=== PATIENT | female | born 1955 | race Caucasian/White ===

== ENCOUNTER 2021-02-24 10:47 | Inpatient (IN) | payer MEDICARE, SELFPAY ==
[2021-02-24] VITALS (27 sets, daily range): BP systolic 109–173; BP diastolic 53–76; PULSE 64–85; RESP 13–43; TEMP 36.3–36.4; O2SAT 94–100; BMI 19.2
[2021-02-24 12:09] LABS: COVID19 -Nasal RAPID Negative (Negative)
[2021-02-24 12:14] LABS: Add Manual Diff / Slide Review NO; Basophils Absolute Auto 0 /uL (0-100); Basophils Percent Auto 0.5 % (0-2); Eosinophils Absolute Auto 0 /uL (0-450); Eosinophils Percent Auto 0.1 % (2-4); Hematocrit 32.4 % (36-46); Hemoglobin 11.4 g/dL (12.0-16.0); Lymphocytes Absolute Auto 800 /uL (1100-4500); Lymphocytes Percent Auto 11.4 % (25-40); Mean Corpuscular HGB Conc 35.1 % (30-36); Mean Corpuscular Hemoglobin 30.7 PG (26-34); Mean Corpuscular Volume 87.5 fL (80-100); Monocytes Absolute Auto 500 /uL (0-900); Monocytes Percent Auto 7.3 % (3-14); Neutrophils Absolute Auto 5900 /uL (1500-7000); Neutrophils Percent Auto 80.7 % (50-75); Platelet Count 352 X10^3/uL (150-400); Red Blood Cell Count 3.71 X10^6/uL (4.0-5.2); Red Cell Distribution Width 12.4 % (11.6-14.8); White Blood Cell Count 7.3 X10^3/uL (4.5-11.0)
[2021-02-24 12:23] LABS: Alanine Aminotransferase 32 IU/L (<35); Albumin 4.5 g/dL (3.5-5.0); Albumin Globulin Ratio 1.1 (1.0-2.8); Alkaline Phosphatase 46 U/L (38-126); Aspartate Aminotransferase 49 IU/L (14-36); BUN Creatinine Ratio 10.4 (6-22); Bilirubin Total 0.6 mg/dL (0.2-1.3); Blood Urea Nitrogen 88 mg/dL (7-17); Estimated Glomerular Filt Rate 4.7 mL/min (>60); Glucose 121 mg/dL (80-110); HEMOLYSIS < 15 (0-50); Lipase 221 U/L (23-300); Potassium 2.8 mmol/L (3.4-5.1); Sodium 129 mmol/L (137-145); Total Protein 8.5 g/dL (6.3-8.2)
[2021-02-24 12:41] LABS: Carbon Dioxide 45 mmol/L (22-32); Chloride 68 mmol/L (98-107)
[2021-02-24 12:42] LABS: Calcium 15.3 mg/dL (8.4-10.2)
[2021-02-24 12:56] LABS: Creatine Kinase 91 U/L (30-135)
[2021-02-24] MEDS: SODIUM CHLORIDE 0.9% 1,000 ML 1000 ML IV ×2 (12:58→14:59)
--- NOTE | 2021-02-24 13:06 | ED_ITS ---
HPI - Nausea/Vomiting/Diarrhea General Chief complaint: Nausea/Vomiting/Diarrhea Stated complaint: dehydrated, cant keep anything down Time Seen by Provider: 02/24/21 12:42 Source: patient Mode of arrival: Ambulatory Limitations: no limitations History of Present Illness HPI Narrative: This is a 65-year-old female who comes to the emergency department with complaint of feeling generally unwell. Patient states that she she has felt generally unwell. Patient states she started feeling unwell around the 17 of February which was 8 days ago. Patient states she thinks she got dehydrated during the heat wave over the 20 of February week. Patient states she noticed on the she was not balancing well when she tried to walk to the local parade. She states she did have 2 syncopal episodes where she fainted. She had sensation that she was going to pass out. She has been moving slower. She has had a mild headache but nothing like severe headache she has had in the past. She has had decreased appetite, she has had a mild cough which has been nonproductive. She has had nausea and vomiting for the past 2 days although she was able to keep in insure down yesterday. She denies any chest pain or shortness of breath. She denies any abdominal pain, no back or flank pain. Patient denies any changes in her urine output and states it has not been dark, she has not had frequency, dysuria sense of urgency or even a decrease in output according her. She has not appreciate any swelling her lower extremities. She states she does not have any known past medical history. She has not seen primary care physician in the last couple years, no prior surgeries, no allergies to medications. Patient does ride horses recreationally. No tobacco, alcohol or illicit. Related Data Home Medications Medication Instructions Recorded Confirmed ibuprofen 200 mg capsule (Advil 200 mg PO TID #0 01/04/17 Liqui-Gel) Allergies Allergy/AdvReac Type Severity Reaction Status Date / Time No Known Drug Allergies Allergy Verified 02/24/21 12:46 Review of Systems Review of Systems ROS Unobtainable: All systems reviewed & are unremarkable except as noted in HPI and below Patient History Social History Smoking Status: Never smoker Smoking Status: Never smoker Substance Use Type: does not use Exam Narrative Exam Narrative: GEN: Thin female, alert and oriented x 3, patient appears to be in mild distress. HEENT: Atraumatic, pupils are equal round reactive to light, extraocular movements are intact, nares are clear. Throat is clear without any exudates, erythema, tonsillar enlargement or uvular deviation, dry mucous membranes, no facial droop. HEART: Regular rate and rhythm without murmur, clicks, rubs. Pulses are equal in upper and lower extremities LUNGS:Lungs clear to auscultation, no wheezes, rales, crackles, chest moves symmetrically ABD:bowel sounds normal, soft, non-tender, no guarding, rebound, rigidity, no masses noted, no hepatosplenomegaly :No CVA tenderness MSCL: Non-tender, no muscle atrophy, muscles strength 5/5 upper and lower extremities, full range of motion NEURO:CN 2-12 intact, sensation normal SKIN: No rash or other changes appreciated Initial Vital Signs Initial Vital Signs: Vital Signs Temperature 97.4 F L 02/24/21 11:35 Pulse Rate 76 02/24/21 11:35 Respiratory Rate 18 02/24/21 11:35 Blood Pressure 140/65 02/24/21 11:35 Pulse Oximetry 98 02/24/21 11:35 Course Orders Ordered: ED Orders 02/24/21 11:46 COVID19 -Nasal swab/Pre-Proc Stat EKG-12 Lead Stat 02/24/21 12:00 Complete Blood Count AUTO DIFF Stat Comprehensive Metabolic Panel Stat Lipase Stat Magnesium Stat NT-proBNP (BNP-Adult 18+) Stat Phosphorous Stat Thyroid Stimulating Hormone Stat Troponin & CK Cardiac Panel Stat Vitamin D 25 Hydroxy (D3) Stat 02/24/21 13:19 CT chest abd pel wo con Stat CT head/brain wo con Stat 02/24/21 14:27 COVID19 - ADMIT ([employer] swab/PCR) Stat 02/24/21 14:34 Creatinine Urine Random Stat Sodium Urine Random Stat Urinalysis and Microscopic Stat Urine Culture Stat 02/24/21 14:53 Lactate (Lactic Acid) Stat Osmolality, Serum Stat 02/24/21 15:00 Blood Culture Stat Sodium Chloride (Normal Saline 0.9%) 1,000 mls @ 175 mls/hr IV CONT LETICIA Last Admin: 02/24/21 18:24 Dose: 175 mls/hr Documented by: LITA Discontinued Medications Sodium Chloride (Normal Saline 0.9%) 1,000 mls @ 1,000 mls/hr IV BOLUS ONE Stop: 02/24/21 13:42 Last Infusion: 02/24/21 14:58 Dose: 0 mls/hr Documented by: Admin: 02/24/21 12:58 Dose: 1,000 mls/hr Documented by: RODRIGO POTASSIUM CHLORIDE IN WATER (Potassium Cl 10 Meq/100 Ml Renetta) 10 meq in 100 mls @ 100 mls/hr IV Q1H LETICIA Stop: 02/24/21 17:29 Last Infusion: 02/24/21 19:05 Dose: 0 mls/hr Documented by: Admin: 02/24/21 17:56 Dose: 100 mls/hr Documented by: Infusion: 02/24/21 17:54 Dose: 0 mls/hr Documented by: Admin: 02/24/21 16:13 Dose: 100 mls/hr Documented by: Infusion: 02/24/21 16:11 Dose: 0 mls/hr Documented by: Admin: 02/24/21 14:57 Dose: 100 mls/hr Documented by: Infusion: 02/24/21 14:56 Dose: 0 mls/hr Documented by: Admin: 02/24/21 13:51 Dose: 100 mls/hr Documented by: RODRIGO Sodium Chloride (Normal Saline 0.9%) 1,000 mls @ 1,000 mls/hr IV BOLUS ONE Stop: 02/24/21 15:57 Last Infusion: 02/24/21 18:14 Dose: 0 mls/hr Documented by: Admin: 02/24/21 14:59 Dose: 1,000 mls/hr Documented by: LITA POTASSIUM CHLORIDE IN WATER (Potassium Cl 10 Meq/100 Ml Renetta) 10 meq in 100 mls @ 100 mls/hr IV Q1H LETICIA Stop: 02/24/21 19:14 Last Admin: 02/24/21 19:08 Dose: 100 mls/hr Documented by: LITA Consultations Consultation #1: Dr. Damon-with Nephrology at [facility]. Is happy to consult with patient, her cell phone is [phone]. She recommends a 2nd L of fluid and after that fluids at 175 mL/hour. Potassium replacement at 80-120 meq of fluids, continue with fluids for calcium. At this time she would not transfer but if patient is not putting out 0.5 mL/kilos per hour which would be 30 cc/hours for the patient they asked for recontact for transfer. Vital Signs Vital signs: Vital Signs - 8 hr 02/24/21 11:35 02/24/21 13:04 02/24/21 13:30 Temperature 97.4 F L Pulse Rate 76 75 80 Respiratory Rate 18 20 Blood Pressure 140/65 153/69 H Pulse Oximetry 98 96 98 02/24/21 13:47 02/24/21 14:00 02/24/21 14:30 Temperature Pulse Rate 85 77 82 Respiratory Rate 22 Blood Pressure 173/73 H 151/72 H 160/73 H Pulse Oximetry 94 100 97 02/24/21 15:00 02/24/21 15:09 02/24/21 15:30 Temperature Pulse Rate 78 73 80 Respiratory Rate Blood Pressure 133/76 144/68 H Pulse Oximetry 100 96 02/24/21 16:00 02/24/21 16:01 02/24/21 16:30 Temperature Pulse Rate 70 73 68 Respiratory Rate 24 21 Blood Pressure 137/59 L 130/66 Pulse Oximetry 97 97 96 02/24/21 17:00 02/24/21 17:30 Temperature Pulse Rate 66 67 Respiratory Rate 22 24 Blood Pressure 139/67 124/67 Pulse Oximetry MDM - Nausea/Vomiting/Diarrhea Lab Data Result diagrams: 02/24/21 12:00 02/24/21 12:00 Labs: Lab Results 02/24/21 02/24/21 02/24/21 Range/Units 11:46 12:00 12:00 WBC 7.3 (4.5-11.0) X10^3/uL RBC 3.71 L (4.0-5.2) X10^6/uL Hgb 11.4 L (12.0-16.0) g/dL Hct 32.4 L (36-46) % MCV 87.5 (80-100) fL MCH 30.7 (26-34) PG MCHC 35.1 (30-36) % RDW 12.4 (11.6-14.8) % Plt Count 352 (150-400) X10^3/uL Neut % (Auto) 80.7 H (50-75) % Lymph % (Auto) 11.4 L (25-40) % [place] % (Auto) 7.3 (3-14) % Eos % (Auto) 0.1 L (2-4) % Baso % (Auto) 0.5 (0-2) % Neut # (Auto) 5900 (9157-5710) /uL Lymph # (Auto) 800 L (4027-2491) /uL [place] # (Auto) 500 (0-900) /uL Eos # (Auto) 0 (0-450) /uL Baso # (Auto) 0 (0-100) /uL Sodium 129 L (137-145) mmol/L Potassium 2.8 L (3.4-5.1) mmol/L Chloride 68 L* (98-107) mmol/L Carbon Dioxide 45 H* (22-32) mmol/L BUN 88 H (7-17) mg/dL Creatinine 8.48 H* (0.52-1.04) mg/dL Estimated GFR 4.7 L (>60) mL/min BUN/Creatinine Ratio 10.4 (6-22) Glucose 121 H (80-110) mg/dL Lactate (0.7-2.1) mmol/L Calcium 15.3 H* (8.4-10.2) mg/dL Phosphorus (2.8-4.1) mg/dL Magnesium (1.6-2.3) mg/dL Total Bilirubin 0.6 (0.2-1.3) mg/dL AST 49 H (14-36) IU/L ALT 32 (<35) IU/L Alkaline Phosphatase 46 (38-126) U/L Total Creatine Kinase (30-135) U/L CK-MB (CK-2) CK-MB (CK-2) Rel Index Troponin I (0.01-0.034) ng/mL NT-Pro-B Natriuret Pep (<125) pg/mL Total Protein 8.5 H (6.3-8.2) g/dL Albumin 4.5 (3.5-5.0) g/dL Globulin 4.0 (1.7-4.1) g/dL Albumin/Globulin Ratio 1.1 (1.0-2.8) Lipase 221 (23-300) U/L 25-OH Vitamin D Total (30.0-100.0) ng/mL TSH (0.47-4.68) uIU/mL Urine Color Urine Appearance Urine pH (4.5-8.0) Ur Specific [place] (1.000-1.035) Urine Protein (Negative) Urine Glucose (UA) (Negative) g/dL Urine Ketones (NEGATIVE) Urine Occult Blood (Negative) Urine Nitrate (Negative) Urine Bilirubin (NEGATIVE) Urine Urobilinogen (0.2) E.U./dL Ur Leukocyte Esterase (NEGATIVE) Urine RBC (0-5/HPF) Urine WBC (0-5/HPF) Urine Bacteria (None) Ur Culture Indicated? Ur Random Sodium (30-90) mmol/L Urine Creatinine mg/dL SARS-CoV-2 (PCR) Negative (Negative) 02/24/21 02/24/21 02/24/21 Range/Units 12:00 12:00 12:00 WBC (4.5-11.0) X10^3/uL RBC (4.0-5.2) X10^6/uL Hgb (12.0-16.0) g/dL Hct (36-46) % MCV (80-100) fL MCH (26-34) PG MCHC (30-36) % RDW (11.6-14.8) % Plt Count (150-400) X10^3/uL Neut % (Auto) (50-75) % Lymph % (Auto) (25-40) % [place] % (Auto) (3-14) % Eos % (Auto) (2-4) % Baso % (Auto) (0-2) % Neut # (Auto) (9120-2568) /uL Lymph # (Auto) (9342-3940) /uL [place] # (Auto) (0-900) /uL Eos # (Auto) (0-450) /uL Baso # (Auto) (0-100) /uL Sodium (137-145) mmol/L Potassium (3.4-5.1) mmol/L Chloride (98-107) mmol/L Carbon Dioxide (22-32) mmol/L BUN (7-17) mg/dL Creatinine (0.52-1.04) mg/dL Estimated GFR (>60) mL/min BUN/Creatinine Ratio (6-22) Glucose (80-110) mg/dL Lactate (0.7-2.1) mmol/L Calcium (8.4-10.2) mg/dL Phosphorus 6.0 H (2.8-4.1) mg/dL Magnesium 2.4 H (1.6-2.3) mg/dL Total Bilirubin (0.2-1.3) mg/dL AST (14-36) IU/L ALT (<35) IU/L Alkaline Phosphatase (38-126) U/L Total Creatine Kinase 91 (30-135) U/L CK-MB (CK-2) TNP CK-MB (CK-2) Rel Index TNP Troponin I < 0.012 (0.01-0.034) ng/mL NT-Pro-B Natriuret Pep 816 H (<125) pg/mL Total Protein (6.3-8.2) g/dL Albumin (3.5-5.0) g/dL Globulin (1.7-4.1) g/dL Albumin/Globulin Ratio (1.0-2.8) Lipase (23-300) U/L 25-OH Vitamin D Total (30.0-100.0) ng/mL TSH 1.25 (0.47-4.68) uIU/mL Urine Color Urine Appearance Urine pH (4.5-8.0) Ur Specific [place] (1.000-1.035) Urine Protein (Negative) Urine Glucose (UA) (Negative) g/dL Urine Ketones (NEGATIVE) Urine Occult Blood (Negative) Urine Nitrate (Negative) Urine Bilirubin (NEGATIVE) Urine Urobilinogen (0.2) E.U./dL Ur Leukocyte Esterase (NEGATIVE) Urine RBC (0-5/HPF) Urine WBC (0-5/HPF) Urine Bacteria (None) Ur Culture Indicated? Ur Random Sodium (30-90) mmol/L Urine Creatinine mg/dL SARS-CoV-2 (PCR) (Negative) 02/24/21 02/24/21 02/24/21 Range/Units 12:00 14:27 14:34 WBC (4.5-11.0) X10^3/uL RBC (4.0-5.2) X10^6/uL Hgb (12.0-16.0) g/dL Hct (36-46) % MCV (80-100) fL MCH (26-34) PG MCHC (30-36) % RDW (11.6-14.8) % Plt Count (150-400) X10^3/uL Neut % (Auto) (50-75) % Lymph % (Auto) (25-40) % [place] % (Auto) (3-14) % Eos % (Auto) (2-4) % Baso % (Auto) (0-2) % Neut # (Auto) (7170-9193) /uL Lymph # (Auto) (4296-6780) /uL [place] # (Auto) (0-900) /uL Eos # (Auto) (0-450) /uL Baso # (Auto) (0-100) /uL Sodium (137-145) mmol/L Potassium (3.4-5.1) mmol/L Chloride (98-107) mmol/L Carbon Dioxide (22-32) mmol/L BUN (7-17) mg/dL Creatinine (0.52-1.04) mg/dL Estimated GFR (>60) mL/min BUN/Creatinine Ratio (6-22) Glucose (80-110) mg/dL Lactate (0.7-2.1) mmol/L Calcium (8.4-10.2) mg/dL Phosphorus (2.8-4.1) mg/dL Magnesium (1.6-2.3) mg/dL Total Bilirubin (0.2-1.3) mg/dL AST (14-36) IU/L ALT (<35) IU/L Alkaline Phosphatase (38-126) U/L Total Creatine Kinase (30-135) U/L CK-MB (CK-2) CK-MB (CK-2) Rel Index Troponin I (0.01-0.034) ng/mL NT-Pro-B Natriuret Pep (<125) pg/mL Total Protein (6.3-8.2) g/dL Albumin (3.5-5.0) g/dL Globulin (1.7-4.1) g/dL Albumin/Globulin Ratio (1.0-2.8) Lipase (23-300) U/L 25-OH Vitamin D Total 28.2 L (30.0-100.0) ng/mL TSH (0.47-4.68) uIU/mL Urine Color Urine Appearance Urine pH (4.5-8.0) Ur Specific [place] (1.000-1.035) Urine Protein (Negative) Urine Glucose (UA) (Negative) g/dL Urine Ketones (NEGATIVE) Urine Occult Blood (Negative) Urine Nitrate (Negative) Urine Bilirubin (NEGATIVE) Urine Urobilinogen (0.2) E.U./dL Ur Leukocyte Esterase (NEGATIVE) Urine RBC (0-5/HPF) Urine WBC (0-5/HPF) Urine Bacteria (None) Ur Culture Indicated? Ur Random Sodium 54 (30-90) mmol/L Urine Creatinine 47.9 mg/dL SARS-CoV-2 (PCR) Negative (Negative) 02/24/21 02/24/21 Range/Units 14:34 14:53 WBC (4.5-11.0) X10^3/uL RBC (4.0-5.2) X10^6/uL Hgb (12.0-16.0) g/dL Hct (36-46) % MCV (80-100) fL MCH (26-34) PG MCHC (30-36) % RDW (11.6-14.8) % Plt Count (150-400) X10^3/uL Neut % (Auto) (50-75) % Lymph % (Auto) (25-40) % [place] % (Auto) (3-14) % Eos % (Auto) (2-4) % Baso % (Auto) (0-2) % Neut # (Auto) (5709-9174) /uL Lymph # (Auto) (1554-3285) /uL [place] # (Auto) (0-900) /uL Eos # (Auto) (0-450) /uL Baso # (Auto) (0-100) /uL Sodium (137-145) mmol/L Potassium (3.4-5.1) mmol/L Chloride (98-107) mmol/L Carbon Dioxide (22-32) mmol/L BUN (7-17) mg/dL Creatinine (0.52-1.04) mg/dL Estimated GFR (>60) mL/min BUN/Creatinine Ratio (6-22) Glucose (80-110) mg/dL Lactate 1.0 (0.7-2.1) mmol/L Calcium (8.4-10.2) mg/dL Phosphorus (2.8-4.1) mg/dL Magnesium (1.6-2.3) mg/dL Total Bilirubin (0.2-1.3) mg/dL AST (14-36) IU/L ALT (<35) IU/L Alkaline Phosphatase (38-126) U/L Total Creatine Kinase (30-135) U/L CK-MB (CK-2) CK-MB (CK-2) Rel Index Troponin I (0.01-0.034) ng/mL NT-Pro-B Natriuret Pep (<125) pg/mL Total Protein (6.3-8.2) g/dL Albumin (3.5-5.0) g/dL Globulin (1.7-4.1) g/dL Albumin/Globulin Ratio (1.0-2.8) Lipase (23-300) U/L 25-OH Vitamin D Total (30.0-100.0) ng/mL TSH (0.47-4.68) uIU/mL Urine Color Yellow Urine Appearance Clear Urine pH 8.0 (4.5-8.0) Ur Specific [place] 1.010 (1.000-1.035) Urine Protein 1+ H (Negative) Urine Glucose (UA) Negative (Negative) g/dL Urine Ketones Negative (NEGATIVE) Urine Occult Blood 1+ H (Negative) Urine Nitrate Negative (Negative) Urine Bilirubin Negative (NEGATIVE) Urine Urobilinogen 0.2 (0.2) E.U./dL Ur Leukocyte Esterase Trace H (NEGATIVE) Urine RBC 5-10/hpf H (0-5/HPF) Urine WBC 5-10/hpf H (0-5/HPF) Urine Bacteria None seen (None) Ur Culture Indicated? Specimen cultured Ur Random Sodium (30-90) mmol/L Urine Creatinine mg/dL SARS-CoV-2 (PCR) (Negative) Imaging Data CT scan - head: Radiologist's Impression: [address] [id number] Scan ReportSigned Patient: Belle Rubio VMR#: [id number]: 4Acct:[id number]/Sex: 65 / FDate of Service: 02/24/21Loc: EDAccession Number: [id number] Procedure: CT head/brain wo con Ordering Provider: Randa Carrasco D.O. PROCEDURE: CT HEAD/BRAIN WO CON INDICATIONS: headaches, renal failure, hypercalcemia TECHNIQUE: Noncontrast 4.5 mm thick angled axial sections acquired from the foramen magnum to the vertex, with coronal and sagittal reformats. For radiation dose reduction, the following was used: automated exposure control, adjustment of mA and/or kV according to patient size. COMPARISON: None. FINDINGS: Image quality: Excellent. CSF spaces: Basal cisterns are patent. No extra-axial fluid collections. Ventricles are normal in size and shape. Brain: No midline shift. No intracranial masses or hemorrhage. Paulino-white matter interface is normal. Skull and face: Calvarium and visualized facial bones are intact, without suspicious lesions. Sinuses: Visualized sinuses and mastoids are clear. IMPRESSION: No acute intracranial abnormality demonstrated. Dictated by: Arya Bentley M.D. on 02/24/2021 at 13:57 Approved by: Arya Bentley M.D. on 02/24/2021 at 13:58 CT chest/abd/pelvis: Radiologist's Impression: [address] [id number] Scan ReportSigned Patient: Belle Rubio R#: [id number]: [id number]:[id number]/Sex: 65 / FDate of Service: 02/24/21Loc: EDAccession Number: [id number] Procedure: CT chest abd pel wo con Ordering Provider: Randa Carrasco D.O. PROCEDURE: CT CHEST ABD PEL WO CON INDICATIONS: renal failure, hypercalcemia, hypokalemia, cancer? TECHNIQUE: After the administration of oral contrast, 5 mm thick sections acquired from the lung apices to the symphysis pubis. 5 mm thick coronal and sagittal reformats acquired, with additional 7 mm coronal MIP reformats through the lungs. For radiation dose reduction, the following was used: automated exposure control, adjustment of mA and/or kV according to patient size. COMPARISON: None. FINDINGS: Image quality: Excellent. CHEST: Lungs and pleura: No acute pulmonary opacities. No pleural effusions or pneumothorax. Central and peripheral airways are patent are normal in caliber. Mediastinum: Heart size is normal. No pericardial effusion. No mediastinal adenopathy by CT size criteria. Thoracic aorta and central pulmonary arteries are normal in size. Esophagus is normal in caliber. No hiatal hernia. Chest wall: No axillary or supraclavicular adenopathy by size criteria. Thyroid gland is normal. ABDOMEN: Solid organs: There is a 0.4 x 0.8 cm subcapsular hypodense nodule in the posterior segment of the right hepatic lobe, most likely a cyst. Liver is normal in size. Gallbladder is normal. Pancreas is normal in contours. Spleen is normal in size. No adrenal nodules. Both kidneys are normal in size, without hydronephrosis. There are tiny 1-2 mm punctate calculi in kidneys bilaterally. Peritoneum and bowel: Small and large bowel loops are normal in caliber and wall thickness. A few colonic diverticula. No CT findings to suggest acute diverticulitis. There is a moderate amount of stool in colon. No free fluid or air. Nodes and vessels: No retroperitoneal or mesenteric adenopathy by size criteria. Aorta and inferior vena cava are normal in size. Miscellaneous: No ventral hernias. PELVIS: Genitourinary: Bladder wall thickness is normal. Uterus is absent. No adnexal mass. Miscellaneous: No inguinal hernias or adenopathy. Bones: No suspicious bony lesions. No vertebral body compression fractures. IMPRESSION: 1. No neoplastic process is identified on this noncontrast enhanced CT. [id number] CT is suboptimal for cancer workup. 2. Mild diverticulosis without diverticulitis. 3. Tiny nonobstructive renal calculi. Dictated by: Tomy Woods M.D. on 02/24/2021 at 14:15 Approved by: Tomy Woods M.D. on 02/24/2021 at 14:25 ECG Data Attestation: I personally reviewed and interpreted this ECG as follows: Prior ECG tracings: not available for review Interpretation: Sinus rhythm with premature atrial complexes. Rate of 68 P are 164 QRS of 90 and QTC of 421, no priors for comparison. Maybe be secondary to hypercalcemia. Jordan waves present. MDM Narrative Medical decision making narrative: This is a 65-year-old female comes in with renal failure likely secondary to dehydration hyponatremia, hypokalemia likely related to patient's vomiting. Contraction alkalosis with hypercalcemia. Patient has protein, occult blood, and trace LE and rbc's. Patient had head CT, chest/abd/pelvis show no acute intracranial abnormality or neoplastic process. There was concern about keeping patient here locally, patient had 400 cc of urine out initially and has continued to have 100 cc/hour of urine output after receiving 2 L of fluid and is at 175 cc/hour at this time. Case was discussed with Dr. Damon Neurology at [facility]. At this time she does not recommend transfer, recommendations are above in the chart and patient was discussed with Dr. De Leon who accepts for admission. Critical Care Time Critical Care Time Critical Care Time: Yes Total Critical Care Time: 45 Attestation: The high probability of a clinically significant, sudden or life threatening deterioration of the [cardiac] system(s) required my full and direct attention, intervention and personal management. The aggregate critical care time was [] minutes. This time is in addition to time spent performing reported procedures but includes the following: [x] Data Review and interpretation [x] Patient assessment and monitoring of vital signs [x] Documentation [x] Medication orders and management Discharge Plan Departure Patient Disposition: Admitted As Inpatient Clinical Impression: Renal failure, Hyponatremia, Hypokalemia, Hypercalcemia Admit Date/Time: 02/24/21 19:02 Admit Provider: Perfecto De Leon
[2021-02-24 13:09] LABS: NT-proBNP (BNP-Adult 18+) 816 pg/mL (<125); Troponin I < 0.012 ng/mL (0.01-0.034)
--- NOTE | 2021-02-24 13:19 | DI.CT.S_ITS ---
PROCEDURE: CT HEAD/BRAIN WO CON INDICATIONS: headaches, renal failure, hypercalcemia TECHNIQUE: Noncontrast 4.5 mm thick angled axial sections acquired from the foramen magnum to the vertex, with coronal and sagittal reformats. For radiation dose reduction, the following was used: automated exposure control, adjustment of mA and/or kV according to patient size. COMPARISON: None. FINDINGS: Image quality: Excellent. CSF spaces: Basal cisterns are patent. No extra-axial fluid collections. Ventricles are normal in size and shape. Brain: No midline shift. No intracranial masses or hemorrhage. Paulino-white matter interface is normal. Skull and face: Calvarium and visualized facial bones are intact, without suspicious lesions. Sinuses: Visualized sinuses and mastoids are clear. IMPRESSION: No acute intracranial abnormality demonstrated. Dictated by: Arya Bentley M.D. on 02/24/2021 at 13:57 Approved by: Arya Bentley M.D. on 02/24/2021 at 13:58
--- NOTE | 2021-02-24 13:19 | DI.CT.S_ITS ---
PROCEDURE: CT CHEST ABD PEL WO CON INDICATIONS: renal failure, hypercalcemia, hypokalemia, cancer? TECHNIQUE: After the administration of oral contrast, 5 mm thick sections acquired from the lung apices to the symphysis pubis. 5 mm thick coronal and sagittal reformats acquired, with additional 7 mm coronal MIP reformats through the lungs. For radiation dose reduction, the following was used: automated exposure control, adjustment of mA and/or kV according to patient size. COMPARISON: None. FINDINGS: Image quality: Excellent. CHEST: Lungs and pleura: No acute pulmonary opacities. No pleural effusions or pneumothorax. Central and peripheral airways are patent are normal in caliber. Mediastinum: Heart size is normal. No pericardial effusion. No mediastinal adenopathy by CT size criteria. Thoracic aorta and central pulmonary arteries are normal in size. Esophagus is normal in caliber. No hiatal hernia. Chest wall: No axillary or supraclavicular adenopathy by size criteria. Thyroid gland is normal. ABDOMEN: Solid organs: There is a 0.4 x 0.8 cm subcapsular hypodense nodule in the posterior segment of the right hepatic lobe, most likely a cyst. Liver is normal in size. Gallbladder is normal. Pancreas is normal in contours. Spleen is normal in size. No adrenal nodules. Both kidneys are normal in size, without hydronephrosis. There are tiny 1-2 mm punctate calculi in kidneys bilaterally. Peritoneum and bowel: Small and large bowel loops are normal in caliber and wall thickness. A few colonic diverticula. No CT findings to suggest acute diverticulitis. There is a moderate amount of stool in colon. No free fluid or air. Nodes and vessels: No retroperitoneal or mesenteric adenopathy by size criteria. Aorta and inferior vena cava are normal in size. Miscellaneous: No ventral hernias. PELVIS: Genitourinary: Bladder wall thickness is normal. Uterus is absent. No adnexal mass. Miscellaneous: No inguinal hernias or adenopathy. Bones: No suspicious bony lesions. No vertebral body compression fractures. IMPRESSION: 1. No neoplastic process is identified on this noncontrast enhanced CT. [id number] CT is suboptimal for cancer workup. 2. Mild diverticulosis without diverticulitis. 3. Tiny nonobstructive renal calculi. Dictated by: Tomy Woods M.D. on 02/24/2021 at 14:15 Approved by: Tomy Woods M.D. on 02/24/2021 at 14:25
[2021-02-24] MEDS: POTASSIUM CHLORIDE IN WATER 10 MEQ/100 ML PIGGYBACK 100 MEQ IV ×8 (13:51→23:39)
[2021-02-24 14:13] LABS: Magnesium 2.4 mg/dL (1.6-2.3)
[2021-02-24 14:43] LABS: Thyroid Stimulating Hormone 1.25 uIU/mL (0.47-4.68)
[2021-02-24 14:46] LABS: Bacteria Urine None Seen
[2021-02-24 15:33] LABS: Appearance Urine UA CLEAR; Bilirubin Urine UA NEGATIVE (NEGATIVE); Color Urine UA YELLOW; Culture Indicated Urine Specimen Cultured; Glucose Urine UA NEGATIVE (Negative); Ketones Urine UA NEGATIVE (NEGATIVE); Leukocyte Esterase Urine UA TRACE (NEGATIVE); Nitrite Urine UA NEGATIVE (Negative); Occult Blood Urine UA 1+ (Negative); Protein Urine UA 1+ (Negative); RBC Urine 5-10/HPF (0-5/HPF); Urobilinogen Urine UA 0.2 E.U./dL (0.2); WBC Urine 5-10/HPF (0-5/HPF)
[2021-02-24 15:42] LABS: COVID19 - ADMIT (NP swab/PCR) Negative (Negative)
[2021-02-24 15:56] LABS: Creatinine Urine Random 47.9 mg/dL; Sodium Urine Random 54 mmol/L (30-90)
[2021-02-24 16:11] LABS: Vitamin D 25 Hydroxy (D3) 28.2 ng/mL (30.0-100.0)
[2021-02-24] MEDS: SODIUM CHLORIDE 0.9% 1,000 ML 175 ML IV (18:24)
--- NOTE | 2021-02-24 22:16 | P.HP_ITS ---
History of Present Illness History of Present Illness Date Patient Seen: 02/24/21 Time Patient Seen: 20:45 Chief complaint: dehydrated, cant keep anything down Narrative: Belle Rubio is a 65-year-old female who presented the emergency department with 3-day history feeling generally unwell. Patient states she attributes her symptoms were a result of February heat wave. Patient states she thinks she got dehydrated after the heat wave over the 20 of February weekend. Patient states she noticed on the she was dizzy when she tried to walk to the local parade. She states she did have 2 syncopal episodes where she fainted. She had sensation that she was going to pass out. She has been moving slower. She has had a mild headache but nothing like severe headache she has had in the past. She has had decreased appetite, she has had a mild cough which has been nonproductive. She does ensorse having the shakes, new onset blurred vision, being unable to chew a dried food, and constipation which is new for her. She has had nausea and vomiting for the past 2 days although she started to drink Ensure and was able to keep it down yesterday. She denies any chest pain or shortness of breath. She denies any abdominal pain, no back or flank pain. Patient denies any changes in her urine output and states it has not been dark, she has not had frequency, dysuria, urgency or even a decrease in output. She has not appreciate any swelling her lower extremities. She states she does not have any known past medical history. She has not seen primary care physician in the last couple years, no prior surgeries, no allergies to medications. Patient does ride horses recreationally. Denies tobacco, alcohol or illicit drug use. Patient's chest x-ray and noncontrast CT of the chest abdomen and pelvis were negative for any acute process. Patient's temp was 97.6?, blood pressure 134/67, heart rate 83, respiratory rate 13, oxygen saturation 97% on room air, she weighs 53.9 kg with a BMI of 19.2. WBC is 7.3, RBC 3.71, hemoglobin 11.4, hematocrit 32.4, platelet count 352, sodium 1 29, potassium 2.8, chloride 68, bicarb 45, BUN 88, creatinine 8.5, with a EGFR 4.7, calcium was 15.3, phosphorus 6.0, magnesium 2.4, AST 49, TSH is normal at 1.25, brain 8 retic peptide is elevated at 816, PTH intact, calcium PTH intact, PTH intact interoperative, S PEP, UPEP, and free serum light chains are pending. COVID-19 PCR was negative. Patient History Medical History Acute renal failure (ARF) No active medical problems Surgical History No history of previous surgery Comment: Family Hx (AllClear ID function not available) Mother age 83 of dementia Father age 80 had [place] Agent exposure Maternal grandmother: hx of nephrectomy Family & Social History Family history unavailable: No (See above.) Safety & Behavioral: Feels Safe in Current Yes Environment Been Physically Hurt or No Threatened By a Person Tobacco & Substance use: Smoking Status Never smoker Substance Use Type does not use Meds Home Medications and Allergies Home Medications Medication Instructions Recorded Confirmed Type ibuprofen 200 mg capsule (Advil 200 mg PO TID #0 01/04/17 History Liqui-Gel) Allergies Allergy/AdvReac Type Severity Reaction Status Date / Time No Known Drug Allergies Allergy Verified 02/24/21 12:46 Review of Systems Review of Systems ROS: Yes All systems reviewed with the patient and are negative except as otherwise documented Exam Vital Signs (past 8 hours): - 02/24/21 14:30 02/24/21 15:00 02/24/21 15:09 Pulse Rate 82 78 73 Respiratory Rate Blood Pressure 160/73 H 133/76 Pulse Oximetry 97 100 96 02/24/21 15:30 02/24/21 16:00 02/24/21 16:01 Pulse Rate 80 70 73 Respiratory Rate 24 21 Blood Pressure 144/68 H 137/59 L Pulse Oximetry 97 97 02/24/21 16:30 02/24/21 17:00 02/24/21 17:30 Pulse Rate 68 66 67 Respiratory Rate 22 24 Blood Pressure 130/66 139/67 124/67 Pulse Oximetry 96 02/24/21 18:00 02/24/21 18:30 02/24/21 19:00 Pulse Rate 65 71 78 Respiratory Rate 40 H 37 H 27 H Blood Pressure 139/68 137/65 115/58 L Pulse Oximetry 98 95 97 02/24/21 19:30 02/24/21 20:00 02/24/21 20:30 Pulse Rate 69 64 65 Respiratory Rate 16 15 14 Blood Pressure 127/60 109/55 L 109/53 L Pulse Oximetry 98 94 02/24/21 21:00 02/24/21 21:30 Pulse Rate 83 76 Respiratory Rate 43 H 23 Blood Pressure 124/65 119/56 L Pulse Oximetry 94 Oxygen Delivery Method Room Air Narrative Exam Narrative: Gen: Alert, oriented, thin 65 y.o. female, NAD HEENT: normocephalic, atraumatic, conjunctiva clear, sclera non-icteric, oral mucosa dry Neck: supple, full ROM, no JVD, trachea is midline Resp: Lungs CTA, non-labored breathing CV: RRR, no murmur or rubs Abd: soft, non-tender, normoactive BTs Skin: dry, poor turgor, no lesions or rashes, dry and intact Neuro: Alert and oriented X 4 w/no focal deficits. Speech clear and coherent. Extremities: moves all 4 extremities, is ambulatory, negative Bina?s sign Psyche: normal mood and affect. Objective Labs Result Diagrams: 02/24/21 12:00 02/24/21 12:00 Labs: Laboratory Results - last 24 hr 02/24/21 02/24/21 02/24/21 11:46 12:00 12:00 WBC 7.3 RBC 3.71 L Hgb 11.4 L Hct 32.4 L MCV 87.5 MCH 30.7 MCHC 35.1 RDW 12.4 Plt Count 352 Neut % (Auto) 80.7 H Lymph % (Auto) 11.4 L [place] % (Auto) 7.3 Eos % (Auto) 0.1 L Baso % (Auto) 0.5 Neut # (Auto) 5900 Lymph # (Auto) 800 L [place] # (Auto) 500 Eos # (Auto) 0 Baso # (Auto) 0 Sodium 129 L Potassium 2.8 L Chloride 68 L* Carbon Dioxide 45 H* BUN 88 H Creatinine 8.48 H* Estimated GFR 4.7 L BUN/Creatinine Ratio 10.4 Glucose 121 H Lactate Calcium 15.3 H* Phosphorus Magnesium Total Bilirubin 0.6 AST 49 H ALT 32 Alkaline Phosphatase 46 Total Creatine Kinase CK-MB (CK-2) CK-MB (CK-2) Rel Index Troponin I NT-Pro-B Natriuret Pep Total Protein 8.5 H Albumin 4.5 Globulin 4.0 Albumin/Globulin Ratio 1.1 Lipase 221 25-OH Vitamin D Total TSH Urine Color Urine Appearance Urine pH Ur Specific [place] Urine Protein Urine Glucose (UA) Urine Ketones Urine Occult Blood Urine Nitrate Urine Bilirubin Urine Urobilinogen Ur Leukocyte Esterase Urine RBC Urine WBC Urine Bacteria Ur Culture Indicated? Ur Random Sodium Urine Creatinine SARS-CoV-2 (PCR) Negative 02/24/21 02/24/21 02/24/21 12:00 12:00 12:00 WBC RBC Hgb Hct MCV MCH MCHC RDW Plt Count Neut % (Auto) Lymph % (Auto) [place] % (Auto) Eos % (Auto) Baso % (Auto) Neut # (Auto) Lymph # (Auto) [place] # (Auto) Eos # (Auto) Baso # (Auto) Sodium Potassium Chloride Carbon Dioxide BUN Creatinine Estimated GFR BUN/Creatinine Ratio Glucose Lactate Calcium Phosphorus 6.0 H Magnesium 2.4 H Total Bilirubin AST ALT Alkaline Phosphatase Total Creatine Kinase 91 CK-MB (CK-2) TNP CK-MB (CK-2) Rel Index TNP Troponin I < 0.012 NT-Pro-B Natriuret Pep 816 H Total Protein Albumin Globulin Albumin/Globulin Ratio Lipase 25-OH Vitamin D Total TSH 1.25 Urine Color Urine Appearance Urine pH Ur Specific [place] Urine Protein Urine Glucose (UA) Urine Ketones Urine Occult Blood Urine Nitrate Urine Bilirubin Urine Urobilinogen Ur Leukocyte Esterase Urine RBC Urine WBC Urine Bacteria Ur Culture Indicated? Ur Random Sodium Urine Creatinine SARS-CoV-2 (PCR) 02/24/21 02/24/21 02/24/21 12:00 14:27 14:34 WBC RBC Hgb Hct MCV MCH MCHC RDW Plt Count Neut % (Auto) Lymph % (Auto) [place] % (Auto) Eos % (Auto) Baso % (Auto) Neut # (Auto) Lymph # (Auto) [place] # (Auto) Eos # (Auto) Baso # (Auto) Sodium Potassium Chloride Carbon Dioxide BUN Creatinine Estimated GFR BUN/Creatinine Ratio Glucose Lactate Calcium Phosphorus Magnesium Total Bilirubin AST ALT Alkaline Phosphatase Total Creatine Kinase CK-MB (CK-2) CK-MB (CK-2) Rel Index Troponin I NT-Pro-B Natriuret Pep Total Protein Albumin Globulin Albumin/Globulin Ratio Lipase 25-OH Vitamin D Total 28.2 L TSH Urine Color Urine Appearance Urine pH Ur Specific [place] Urine Protein Urine Glucose (UA) Urine Ketones Urine Occult Blood Urine Nitrate Urine Bilirubin Urine Urobilinogen Ur Leukocyte Esterase Urine RBC Urine WBC Urine Bacteria Ur Culture Indicated? Ur Random Sodium 54 Urine Creatinine 47.9 SARS-CoV-2 (PCR) Negative 02/24/21 02/24/21 14:34 14:53 WBC RBC Hgb Hct MCV MCH MCHC RDW Plt Count Neut % (Auto) Lymph % (Auto) [place] % (Auto) Eos % (Auto) Baso % (Auto) Neut # (Auto) Lymph # (Auto) [place] # (Auto) Eos # (Auto) Baso # (Auto) Sodium Potassium Chloride Carbon Dioxide BUN Creatinine Estimated GFR BUN/Creatinine Ratio Glucose Lactate 1.0 Calcium Phosphorus Magnesium Total Bilirubin AST ALT Alkaline Phosphatase Total Creatine Kinase CK-MB (CK-2) CK-MB (CK-2) Rel Index Troponin I NT-Pro-B Natriuret Pep Total Protein Albumin Globulin Albumin/Globulin Ratio Lipase 25-OH Vitamin D Total TSH Urine Color Yellow Urine Appearance Clear Urine pH 8.0 Ur Specific [place] 1.010 Urine Protein 1+ H Urine Glucose (UA) Negative Urine Ketones Negative Urine Occult Blood 1+ H Urine Nitrate Negative Urine Bilirubin Negative Urine Urobilinogen 0.2 Ur Leukocyte Esterase Trace H Urine RBC 5-10/hpf H Urine WBC 5-10/hpf H Urine Bacteria None seen Ur Culture Indicated? Specimen cultured Ur Random Sodium Urine Creatinine SARS-CoV-2 (PCR) Assessment & Plan Assessment & Plan narrative: Belle Rubio will be admitted for treatment of an acute kidney failure and undergo further workup of such. 1. Acute renal failure with a creatinine of 8.48 and an eGFR of 4.7, present on admission * Improved creatinine of 7.22 and 5.6 respectively * Strict Is and Os to monitor strict UOP * PTH intact, calcium PH intact and parathyroid intact are pending 2. Hyperphosphetemia, acute and present on admission * Phosphorus was 6.0 will check level q 4 hours. 2. Hypercalcemia, acute and present on admission * Serum calcium on admission was 15.3 now improved to 12.3 * Check level q 4 hours * Nephrology advised to hold treatment until the am * Have ordered serum immunoassays and serum free light chains to rule out multiple myeloma now pending 3. Metabolic derangement, acute and present on admission * Potassium 2.8, sodium was 129, now improved to 3.0 and 130 respectively * She received 2 Kcl riders in the ED and another 40 Kcl IV riders ordered along with 40 mEq po X 1 * Check level q 2 hours VTE prophylaxis: Wells risk score: 0 Heparin 5000 units subQ bid Consults: none Patient is admitted to the ICU under inpatient status with expected length of stay greater than 2 midnights due to severity of presenting symptoms, risk of adverse event, and complexity of treatment plan. FEN: IV ns at 175 ml/hour, general diet, BMP q 2 hours and magnesium q 4 hours. Dispo: unknown at this time Code Status: Full code as discussed with patient [place] Jasmin is her and surrogate/POA. COVID-19 COVID-19 status: Negative Result date/Date tested (Pos, Neg/Pending): 02/24/21 Scores Wells' Criteria for PE Clinical signs and symptoms of DVT: No PE is #1 Dx or equally likely: No Heart rate > 100: No Immobilization at least 3 days or surg in previous 4 weeks: No History of PE or DVT: No Hemoptysis: No Malignancy w/Treatment within 6 months or palliative: No Wells' PE Score total: 0 Quality VTE Deep Vein Thrombosis/Pulmonary Embolism Present on Admission: No
[2021-02-24] MEDS: HEPARIN 5,000 UNIT/ML VIAL 5000 UNIT SUBCUT (22:19)
[2021-02-24 22:40] LABS: Magnesium 2.1 mg/dL (1.6-2.3)
[2021-02-24 22:42] LABS: BUN Creatinine Ratio 10.8 (6-22); Blood Urea Nitrogen 78 mg/dL (7-17); Calcium 12.3 mg/dL (8.4-10.2); Chloride 86 mmol/L (98-107); Estimated Glomerular Filt Rate 5.6 mL/min (>60); Glucose 88 mg/dL (80-110); HEMOLYSIS < 15 (0-50); Sodium 130 mmol/L (137-145)
[2021-02-24 22:52] LABS: Carbon Dioxide 39 mmol/L (22-32)
[2021-02-24 22:54] LABS: Troponin I 0.014 ng/mL (0.01-0.034)
[2021-02-24] MEDS: POTASSIUM CHLORIDE 20 MEQ TAB 40 MEQ PO (23:38)
[2021-02-24 23:54] LABS: Phosphorous 3.6 mg/dL (2.8-4.1)
[2021-02-25] VITALS (27 sets, daily range): BP systolic 99–147; BP diastolic 54–85; PULSE 63–85; RESP 14–57; TEMP 36.8–37; O2SAT 92–99
[2021-02-25] MEDS: POTASSIUM CHLORIDE IN WATER 10 MEQ/100 ML PIGGYBACK 100 MEQ IV ×4 (00:53→04:57)
[2021-02-25 00:54] LABS: BUN Creatinine Ratio 11.6 (6-22); Blood Urea Nitrogen 79 mg/dL (7-17); Calcium 11.9 mg/dL (8.4-10.2); Carbon Dioxide 39 mmol/L (22-32); Chloride 87 mmol/L (98-107); Estimated Glomerular Filt Rate 6.1 mL/min (>60); Glucose 111 mg/dL (80-110); HEMOLYSIS 16 (0-50); Magnesium 2.1 mg/dL (1.6-2.3); Potassium 3.2 mmol/L (3.4-5.1); Sodium 130 mmol/L (137-145)
[2021-02-25 01:03] LABS: Troponin I 0.014 ng/mL (0.01-0.034)
[2021-02-25 02:47] LABS: Phosphorous 3.1 mg/dL (2.8-4.1)
[2021-02-25 02:49] LABS: BUN Creatinine Ratio 10.7 (6-22); Blood Urea Nitrogen 75 mg/dL (7-17); Calcium 12.2 mg/dL (8.4-10.2); Carbon Dioxide 38 mmol/L (22-32); Chloride 91 mmol/L (98-107); Estimated Glomerular Filt Rate 5.8 mL/min (>60); Glucose 111 mg/dL (80-110); HEMOLYSIS < 15 (0-50); Potassium 3.9 mmol/L (3.4-5.1); Sodium 132 mmol/L (137-145)
[2021-02-25 04:38] LABS: Add Manual Diff / Slide Review NO; Basophils Absolute Auto 0 /uL (0-100); Basophils Percent Auto 0.5 % (0-2); Eosinophils Absolute Auto 0 /uL (0-450); Eosinophils Percent Auto 0.8 % (2-4); Hematocrit 27.1 % (36-46); Hemoglobin 9.4 g/dL (12.0-16.0); Lymphocytes Absolute Auto 1400 /uL (1100-4500); Lymphocytes Percent Auto 24.9 % (25-40); Mean Corpuscular HGB Conc 34.7 % (30-36); Mean Corpuscular Hemoglobin 30.6 PG (26-34); Mean Corpuscular Volume 88.3 fL (80-100); Monocytes Absolute Auto 500 /uL (0-900); Monocytes Percent Auto 9.4 % (3-14); Neutrophils Absolute Auto 3600 /uL (1500-7000); Neutrophils Percent Auto 64.4 % (50-75); Platelet Count 271 X10^3/uL (150-400); Red Blood Cell Count 3.07 X10^6/uL (4.0-5.2); Red Cell Distribution Width 12.4 % (11.6-14.8); White Blood Cell Count 5.6 X10^3/uL (4.5-11.0)
[2021-02-25 04:46] LABS: BUN Creatinine Ratio 11.3 (6-22); Blood Urea Nitrogen 74 mg/dL (7-17); Calcium 11.9 mg/dL (8.4-10.2); Carbon Dioxide 35 mmol/L (22-32); Chloride 95 mmol/L (98-107); Estimated Glomerular Filt Rate 6.3 mL/min (>60); Glucose 91 mg/dL (80-110); HEMOLYSIS < 15 (0-50); Potassium 4.3 mmol/L (3.4-5.1); Sodium 133 mmol/L (137-145)
[2021-02-25 04:58] LABS: Troponin I < 0.012 ng/mL (0.01-0.034)
[2021-02-25] MEDS: SODIUM CHLORIDE 0.9% 1,000 ML 150 ML IV ×3 (06:01→20:20)
--- NOTE | 2021-02-25 06:39 | PC.NURSE ---
Shift Note-Patient admitted to ICU room 228 at 2150, oriented x4, drowsy. Able to transfer to bed with SBA. NS @ 175ml/hr and K+ rider infusing, received total of 120meq K+ riders plus 40meq PO potassium x1. Q2h BMP, other labs Q4h, values slowly improving. UOP has been 125ml-225ml/hr on average, see I/Os. SR, VSS, RA >95%, denies pain. Was able to sleep and says I'm thinking more clear this morning
[2021-02-25 08:41] LABS: BUN Creatinine Ratio 10.5 (6-22); Blood Urea Nitrogen 70 mg/dL (7-17); Carbon Dioxide 32 mmol/L (22-32); Chloride 98 mmol/L (98-107); Estimated Glomerular Filt Rate 6.2 mL/min (>60); Glucose 88 mg/dL (80-110); HEMOLYSIS < 15 (0-50); Potassium 4.2 mmol/L (3.4-5.1); Sodium 134 mmol/L (137-145)
--- NOTE | 2021-02-25 11:43 | CM.DANOTE ---
Addendum entered by Barbi Urbina LPN 02/25/21 12:16: Met with pt and introduced self and role. Pt [address] on [facility] with her Alejandro. Is functionally independent at baseline, has a barn with animals and says that during the extended heat wave she was up every 2 hours at night misting the animals to cool them. Pt is still having some difficulty thinking quickly but does feel she is improving. PCP: was Dr. Gonzales/Ramila who retired. Her goes to same clinic and she has been planning to establish with MICHAEL Geronimo at same clinic. Her will be in to visit soon and she will ask him to call the clinic to try to get a new pt appointment set up. P: anticipate home with spouse when stable for [facility]. will follow prn. Addendum entered by Barbi Urbina LPN 02/25/21 12:06: PT is a 65 year old female who admitted to care of hospitalist team yesterday evening. PCP: ? at this time Payer: [facility] Admission status: in review Will check in with pt now and follow as full dx and treatment plan unfold. Original Note: Discharge Planning/Care Management DCP: assessment: case received, EMR reviewed. Discussed in Team Rounds. [employer] consult was ordered. CM Discharge Assessment Start: 02/25/21 11:41 Freq: Status: Active Protocol: Document 02/25/21 11:42 ITV (Rec: 02/25/21 11:43 ITV [id number]) Discharge Planning Assessment Advance Directives? No Advance Directives on File No History Provided By Medical Record Has Patient been admitted in last 30 No days? Prior Living Arrangements House Household Members spouse Independent with ADL's Yes Is patient alert and oriented? Yes
[2021-02-25 13:20] LABS: BUN Creatinine Ratio 10.9 (6-22); Blood Urea Nitrogen 71 mg/dL (7-17); Carbon Dioxide 31 mmol/L (22-32); Chloride 99 mmol/L (98-107); Estimated Glomerular Filt Rate 6.3 mL/min (>60); Glucose 104 mg/dL (80-110); HEMOLYSIS < 15 (0-50); Magnesium 1.9 mg/dL (1.6-2.3); Potassium 3.8 mmol/L (3.4-5.1); Sodium 135 mmol/L (137-145)
[2021-02-25 13:32] LABS: Troponin I < 0.012 ng/mL (0.01-0.034)
[2021-02-25 13:37] LABS: Parathyroid Hormone, Intact 20
[2021-02-25 13:38] LABS: Calcium 13.9
[2021-02-25] MEDS: HEPARIN 5,000 UNIT/ML VIAL 5000 UNIT SUBCUT ×2 (14:22→21:07)
[2021-02-25 15:16] LABS: Osmolality, Serum 301 mOsmol/kg (280-301)
--- NOTE | 2021-02-25 15:27 | DI.RAD.S_ITS ---
PROCEDURE: XR BONE SURVEY INDICATIONS: lytic lesion for cancer? TECHNIQUE: Multiple views obtained of various bony structures as described below. COMPARISON: None. FINDINGS: Skull (lateral): No suspicious bony lesions. No fractures. Thoracic spine (AP, lateral): No suspicious bony lesions. No acute vertebral body compression fractures. Lumbar spine (AP, lateral): No suspicious bony lesions. No acute vertebral body compression fractures. Pelvis (AP): No suspicious bony lesions. No fractures. Overlying soft tissues appear unremarkable. Right and left humeri (AP): No suspicious bony lesions. No fractures. Overlying soft tissues appear unremarkable except for what appears to be a gown buttons overlying the distal humeral diaphysis at the right arm.. Right and left femurs (AP): No suspicious bony lesions. No fractures. Overlying soft tissues appear unremarkable. IMPRESSION: No osteolytic or blastic bone lesion found. A gown buttons superimposes on the junction of the middle and lower thirds of the right humerus laterally. Dictated by: Eitan Lala M.D. on 02/25/2021 at 17:00 Approved by: Eitan Lala M.D. on 02/25/2021 at 17:02
--- NOTE | 2021-02-25 15:53 | DIET.PN ---
Dietary Progress Note RD Note: Pt admitted for dehydration c eGFR 6.3 and Cr 6.53 reassigned to renal diet by RD. Checked in on pt regarding what to expect with renal diet during hospitalization and provided handout on good food choices and those to avoid for now in case she wants to call down her preferred menu. Pt was being taken to xray during our conversation so was cut short and pt has no [facility] hospital record, per nursing no active Rx.
[2021-02-25 17:38] LABS: BUN Creatinine Ratio 11.2 (6-22); Blood Urea Nitrogen 71 mg/dL (7-17); Calcium 11.6 mg/dL (8.4-10.2); Carbon Dioxide 34 mmol/L (22-32); Chloride 99 mmol/L (98-107); Estimated Glomerular Filt Rate 6.6 mL/min (>60); Glucose 128 mg/dL (80-110); HEMOLYSIS < 15 (0-50); Potassium 3.7 mmol/L (3.4-5.1); Sodium 136 mmol/L (137-145)
[2021-02-25] MEDS: CALCITONIN,SALMON 400 UNITS/2 ML MDV 200 UNITS IM (18:06)
--- NOTE | 2021-02-25 18:44 | PM.PN.1 ---
Subjective Subjective Date Patient Seen: 02/25/21 Time Patient Seen: 08:00 Interval history: Today she feels much better. She does not feel as confused. Her appetite is better. Her imbalance feels better. Her vision is improved. She has no nausea or vomiting. She has no bone pain. Exam Vital Signs (past 8 hours): - 02/25/21 13:01 02/25/21 16:16 Temperature 98.6 F Pulse Rate 80 75 Respiratory Rate 32 H 16 Blood Pressure 126/61 137/85 Pulse Oximetry 94 96 Oxygen Delivery Method Room Air Oxygen Flow Rate 0 Narrative Exam Narrative: Gen: no acute distress Resp: lungs clear bilaterally CV: regular rate and rhythm, no murmurs Abd: soft, non-tender, normal bowel sounds Neuro: Alert and oriented with no focal deficits. Speech clear and coherent. Objective Labs Result Diagrams: 02/25/21 04:25 02/25/21 17:18 Labs: Laboratory Results - last 24 hr 02/24/21 02/24/21 02/24/21 14:53 14:53 22:20 WBC RBC Hgb Hct MCV MCH MCHC RDW Plt Count Neut % (Auto) Lymph % (Auto) [place] % (Auto) Eos % (Auto) Baso % (Auto) Neut # (Auto) Lymph # (Auto) [place] # (Auto) Eos # (Auto) Baso # (Auto) Sodium 130 L Potassium 3.0 L Chloride 86 L Carbon Dioxide 39 H BUN 78 H Creatinine 7.22 H Estimated GFR 5.6 L BUN/Creatinine Ratio 10.8 Glucose 88 Serum Osmolality 301 Calcium 12.3 H Phosphorus Magnesium Troponin I 0.014 PTH Intact 20 Calcium (PTH Intact) 13.9 PTH Intact Intraop Comment Nasal Screen MRSA (PCR) 02/24/21 02/24/21 02/24/21 22:20 22:22 23:00 WBC RBC Hgb Hct MCV MCH MCHC RDW Plt Count Neut % (Auto) Lymph % (Auto) [place] % (Auto) Eos % (Auto) Baso % (Auto) Neut # (Auto) Lymph # (Auto) [place] # (Auto) Eos # (Auto) Baso # (Auto) Sodium Potassium Chloride Carbon Dioxide BUN Creatinine Estimated GFR BUN/Creatinine Ratio Glucose Serum Osmolality Calcium Phosphorus 3.6 D Magnesium 2.1 Troponin I PTH Intact Calcium (PTH Intact) PTH Intact Intraop Nasal Screen MRSA (PCR) Negative for mrsa 02/25/21 02/25/21 02/25/21 00:30 00:30 02:25 WBC RBC Hgb Hct MCV MCH MCHC RDW Plt Count Neut % (Auto) Lymph % (Auto) [place] % (Auto) Eos % (Auto) Baso % (Auto) Neut # (Auto) Lymph # (Auto) [place] # (Auto) Eos # (Auto) Baso # (Auto) Sodium 130 L 132 L Potassium 3.2 L 3.9 Chloride 87 L 91 L Carbon Dioxide 39 H 38 H BUN 79 H 75 H Creatinine 6.79 H 7.03 H Estimated GFR 6.1 L 5.8 L BUN/Creatinine Ratio 11.6 10.7 Glucose 111 H 111 H Serum Osmolality Calcium 11.9 H 12.2 H Phosphorus Magnesium 2.1 Troponin I 0.014 PTH Intact Calcium (PTH Intact) PTH Intact Intraop Nasal Screen MRSA (PCR) 02/25/21 02/25/21 02/25/21 02:25 04:25 04:25 WBC RBC Hgb Hct MCV MCH MCHC RDW Plt Count Neut % (Auto) Lymph % (Auto) [place] % (Auto) Eos % (Auto) Baso % (Auto) Neut # (Auto) Lymph # (Auto) [place] # (Auto) Eos # (Auto) Baso # (Auto) Sodium 133 L Potassium 4.3 Chloride 95 L Carbon Dioxide 35 H BUN 74 H Creatinine 6.57 H Estimated GFR 6.3 L BUN/Creatinine Ratio 11.3 Glucose 91 Serum Osmolality Calcium 11.9 H Phosphorus 3.1 Magnesium 2.0 Troponin I < 0.012 PTH Intact Calcium (PTH Intact) PTH Intact Intraop Nasal Screen MRSA (PCR) 02/25/21 02/25/21 02/25/21 04:25 07:46 07:46 WBC 5.6 RBC 3.07 L Hgb 9.4 L Hct 27.1 L MCV 88.3 MCH 30.6 MCHC 34.7 RDW 12.4 Plt Count 271 Neut % (Auto) 64.4 Lymph % (Auto) 24.9 L [place] % (Auto) 9.4 Eos % (Auto) 0.8 L Baso % (Auto) 0.5 Neut # (Auto) 3600 Lymph # (Auto) 1400 [place] # (Auto) 500 Eos # (Auto) 0 Baso # (Auto) 0 Sodium 134 L Potassium 4.2 Chloride 98 Carbon Dioxide 32 BUN 70 H Creatinine 6.68 H Estimated GFR 6.2 L BUN/Creatinine Ratio 10.5 Glucose 88 Serum Osmolality Calcium 12.0 H Phosphorus Cancelled Magnesium Troponin I PTH Intact Calcium (PTH Intact) PTH Intact Intraop Nasal Screen MRSA (PCR) 02/25/21 02/25/21 02/25/21 12:51 12:51 12:51 WBC RBC Hgb Hct MCV MCH MCHC RDW Plt Count Neut % (Auto) Lymph % (Auto) [place] % (Auto) Eos % (Auto) Baso % (Auto) Neut # (Auto) Lymph # (Auto) [place] # (Auto) Eos # (Auto) Baso # (Auto) Sodium 135 L Potassium 3.8 Chloride 99 Carbon Dioxide 31 BUN 71 H Creatinine 6.53 H Estimated GFR 6.3 L BUN/Creatinine Ratio 10.9 Glucose 104 Serum Osmolality Calcium 12.0 H Phosphorus Magnesium 1.9 Troponin I < 0.012 PTH Intact Calcium (PTH Intact) PTH Intact Intraop Nasal Screen MRSA (PCR) 02/25/21 17:18 WBC RBC Hgb Hct MCV MCH MCHC RDW Plt Count Neut % (Auto) Lymph % (Auto) [place] % (Auto) Eos % (Auto) Baso % (Auto) Neut # (Auto) Lymph # (Auto) [place] # (Auto) Eos # (Auto) Baso # (Auto) Sodium 136 L Potassium 3.7 Chloride 99 Carbon Dioxide 34 H BUN 71 H Creatinine 6.35 H Estimated GFR 6.6 L BUN/Creatinine Ratio 11.2 Glucose 128 H Serum Osmolality Calcium 11.6 H Phosphorus Magnesium Troponin I PTH Intact Calcium (PTH Intact) PTH Intact Intraop Nasal Screen MRSA (PCR) [facility] Medical History Acute renal failure (ARF) No active medical problems Surgical History No history of previous surgery Social History household members: spouse Smoking Status: Never smoker Assessment & Plan Assessment & Plan narrative: Ms. Castellanos is a 65W with no previous PMH who presents with weakness, confusion found to have new severe FRAN. 1. Acute renal failure -initial creatinine 8.48, improved after IV fluids to 6.35 -etiology has been presumed initially to be due to severe volume depletion -urine sodium elevated, but appears to be after received IV fluid, lowering yield -has been presumed based on story to have severe prerenal FRAN -UOP has been excellent, and IV fluids have improved kidney function but only slowly -UA shows slight protein and blood, nonspecific in this setting -CT shows no evidence of obstruction 2. Hypercalcemia, severe, acute -etiology initially thought secondary to renal failure and dehydration -hydrating patient improve calcium, but still elevated -ordered for calctinon on 02/25 -PTH on the low side at 20, unlikely to be primary hyperparathyroidism -SPEP, UPEP, free light chains ordered to eval for possible myeloma -skeletal survey negative lytic lesions -25-OH vitamin D ordered and low -1,25 vitamin D ordered and pthrp ordered -suspicious for possible malignancy -TSH ok 3. Hypokalemia -improved with repletion -continue to replete as needed 4. Hyperphosphatemia,resolved -secondary to renal failure, improved with IV fluids IVF: 150cc/hr Code Status: Full code as discussed with patient [place] Jasmin is her and surrogate/POA. Quality VTE Deep Vein Thrombosis/Pulmonary Embolism Present on Admission: No
[2021-02-25 23:21] LABS: BUN Creatinine Ratio 10.4 (6-22); Blood Urea Nitrogen 63 mg/dL (7-17); Calcium 11.1 mg/dL (8.4-10.2); Carbon Dioxide 29 mmol/L (22-32); Chloride 103 mmol/L (98-107); Estimated Glomerular Filt Rate 6.9 mL/min (>60); Glucose 118 mg/dL (80-110); HEMOLYSIS < 15 (0-50); Potassium 3.7 mmol/L (3.4-5.1); Sodium 138 mmol/L (137-145)
[2021-02-26] MEDS: SODIUM CHLORIDE 0.9% 1,000 ML 150 ML IV ×4 (02:39→23:06)
[2021-02-26 02:43] VITALS: BP 118/74; PULSE 75; RESP 22; TEMP 36.1; O2SAT 95
[2021-02-26 05:22] LABS: Add Manual Diff / Slide Review NO; Basophils Absolute Auto 0 /uL (0-100); Basophils Percent Auto 0.6 % (0-2); Eosinophils Absolute Auto 100 /uL (0-450); Eosinophils Percent Auto 1.5 % (2-4); Hemoglobin 9.3 g/dL (12.0-16.0); Lymphocytes Absolute Auto 1500 /uL (1100-4500); Lymphocytes Percent Auto 20.8 % (25-40); Mean Corpuscular HGB Conc 34.3 % (30-36); Mean Corpuscular Hemoglobin 30.6 PG (26-34); Mean Corpuscular Volume 89.4 fL (80-100); Monocytes Absolute Auto 600 /uL (0-900); Monocytes Percent Auto 8.6 % (3-14); Neutrophils Absolute Auto 5000 /uL (1500-7000); Neutrophils Percent Auto 68.5 % (50-75); Platelet Count 262 X10^3/uL (150-400); Red Blood Cell Count 3.03 X10^6/uL (4.0-5.2); Red Cell Distribution Width 12.4 % (11.6-14.8); White Blood Cell Count 7.3 X10^3/uL (4.5-11.0)
[2021-02-26 05:46] LABS: BUN Creatinine Ratio 10.6 (6-22); Blood Urea Nitrogen 58 mg/dL (7-17); Calcium 10.9 mg/dL (8.4-10.2); Carbon Dioxide 24 mmol/L (22-32); Chloride 108 mmol/L (98-107); Estimated Glomerular Filt Rate 7.8 mL/min (>60); Glucose 100 mg/dL (80-110); HEMOLYSIS < 15 (0-50); Potassium 3.7 mmol/L (3.4-5.1); Sodium 137 mmol/L (137-145)
[2021-02-26 06:00] VITALS: BP 124/58; PULSE 73; RESP 22; TEMP 36.9; O2SAT 95
[2021-02-26] MEDS: HEPARIN 5,000 UNIT/ML VIAL 5000 UNIT SUBCUT ×2 (08:12→21:23)
[2021-02-26] MEDS: PANTOPRAZOLE 40 MG VIAL IV (08:13)
[2021-02-26 09:05] VITALS: BP 124/56; PULSE 63; RESP 26; TEMP 36.9; O2SAT 97
[2021-02-26 12:45] VITALS: BP 126/60; PULSE 66; RESP 22; TEMP 36.6; O2SAT 96
[2021-02-26 14:29] LABS: Free Kappa Lt Chains, Serum 86.1 mg/L (3.3-19.4); Free Lambda Lt Chains,Serum 39.8 mg/L (5.7-26.3)
[2021-02-26 16:29] VITALS: BP 149/75; PULSE 74; RESP 17; TEMP 37.1; O2SAT 99
--- NOTE | 2021-02-26 17:11 | PM.PN.1 ---
Subjective Subjective Interval history: Patient is a 65-year-old female admitted to the hospital for acute renal failure. Patient admits to intentionally not drinking water while working on her home and [place] commuting from [facility] when the weather was very hot. In addition she reports having significant heartburn and has been taking excessive Tums in addition to her usual [id number] antacid. She feels significantly improved today and has had improvement of her urine output as well as renal function Exam Vital Signs (past 8 hours): - 02/26/21 12:45 02/26/21 16:29 Temperature 97.9 F 98.8 F Pulse Rate 66 74 Respiratory Rate 22 17 Blood Pressure 126/60 149/75 H Pulse Oximetry 96 99 Oxygen Delivery Method Room Air Oxygen Flow Rate 0 Narrative Exam Narrative: Pleasant female resting comfortably in no obvious distress Resp Other: Lungs clear to auscultation Cardiac exam regular rate and rhythm normal S1-S2 Abdomen: Soft nontender nondistended Extremities: No edema Objective Labs Result Diagrams: 02/26/21 05:00 02/26/21 05:00 Labs: Laboratory Results - last 24 hr 02/25/21 02/25/21 02/25/21 07:46 17:18 23:02 WBC RBC Hgb Hct MCV MCH MCHC RDW Plt Count Neut % (Auto) Lymph % (Auto) [place] % (Auto) Eos % (Auto) Baso % (Auto) Neut # (Auto) Lymph # (Auto) [place] # (Auto) Eos # (Auto) Baso # (Auto) Sodium 136 L 138 Potassium 3.7 3.7 Chloride 99 103 Carbon Dioxide 34 H 29 BUN 71 H 63 H Creatinine 6.35 H 6.04 H Estimated GFR 6.6 L 6.9 L BUN/Creatinine Ratio 11.2 10.4 Glucose 128 H 118 H Calcium 11.6 H 11.1 H Free [place] Light Chains 86.1 H Free Lambda Light Chain 39.8 H Free [place]/Lambda Ratio 2.16 H 02/26/21 02/26/21 05:00 05:00 WBC 7.3 RBC 3.03 L Hgb 9.3 L Hct 27.0 L MCV 89.4 MCH 30.6 MCHC 34.3 RDW 12.4 Plt Count 262 Neut % (Auto) 68.5 Lymph % (Auto) 20.8 L [place] % (Auto) 8.6 Eos % (Auto) 1.5 L Baso % (Auto) 0.6 Neut # (Auto) 5000 Lymph # (Auto) 1500 [place] # (Auto) 600 Eos # (Auto) 100 Baso # (Auto) 0 Sodium 137 Potassium 3.7 Chloride 108 H Carbon Dioxide 24 BUN 58 H Creatinine 5.48 H Estimated GFR 7.8 L BUN/Creatinine Ratio 10.6 Glucose 100 Calcium 10.9 H Free [place] Light Chains Free Lambda Light Chain Free [place]/Lambda Ratio PFSH Medical History Acute renal failure (ARF) No active medical problems Surgical History No history of previous surgery Social History household members: spouse Smoking Status: Never smoker Assessment & Plan Assessment & Plan narrative: Ms. Castellanos is a 65W with no previous PMH who presents with weakness, confusion found to have new severe FRAN. 1. Acute renal failure -initial creatinine 8.48, improved after IV fluids to 5.48 -etiology has been presumed initially to be due to severe volume depletion -urine sodium elevated, but appears to be after received IV fluid, lowering yield -has been presumed based on story to have severe prerenal FRAN -UOP has been excellent, and IV fluids have improved kidney function but only slowly -UA shows slight protein and blood, nonspecific in this setting -CT shows no evidence of obstruction 2. Hypercalcemia, severe, acute -etiology initially thought secondary to renal failure and dehydration, patient consuming excessive Tums likely contributing to hypercalcemia as well -hydrating patient improve calcium, but still elevated -ordered for calctinon on 02/25 -PTH on the low side at 20, unlikely to be primary hyperparathyroidism -SPEP, UPEP, free light chains ordered to eval for possible myeloma -skeletal survey negative lytic lesions -25-OH vitamin D ordered and low -1,25 vitamin D ordered and pthrp ordered -suspicious for possible malignancy -TSH ok 3. Hypokalemia -improved with repletion -continue to replete as needed 4. Hyperphosphatemia,resolved -secondary to renal failure, improved with IV fluids 5. GERD -continue PPI -suggest outpatient upper endoscopy 6. Anemia -likely dilution -will continue to monitor IVF: 150cc/hr Code Status: Full code as discussed with patient [place] Jasmin is her and surrogate/POA. Quality VTE Deep Vein Thrombosis/Pulmonary Embolism Present on Admission: No
[2021-02-27 04:55] VITALS: BP 138/65; PULSE 80; RESP 16; TEMP 36.5; O2SAT 94
[2021-02-27] MEDS: ACETAMINOPHEN 325 MG TABLET 650 MG PO (04:58)
[2021-02-27 05:24] LABS: Add Manual Diff / Slide Review NO; Basophils Absolute Auto 0 /uL (0-100); Basophils Percent Auto 0.6 % (0-2); Eosinophils Absolute Auto 200 /uL (0-450); Eosinophils Percent Auto 2.6 % (2-4); Hematocrit 26.2 % (36-46); Lymphocytes Absolute Auto 1900 /uL (1100-4500); Lymphocytes Percent Auto 28.7 % (25-40); Mean Corpuscular HGB Conc 34.3 % (30-36); Mean Corpuscular Hemoglobin 30.6 PG (26-34); Monocytes Absolute Auto 500 /uL (0-900); Monocytes Percent Auto 7.1 % (3-14); Neutrophils Absolute Auto 4100 /uL (1500-7000); Platelet Count 269 X10^3/uL (150-400); Red Blood Cell Count 2.94 X10^6/uL (4.0-5.2); Red Cell Distribution Width 12.5 % (11.6-14.8); White Blood Cell Count 6.8 X10^3/uL (4.5-11.0)
[2021-02-27 05:33] LABS: Blood Urea Nitrogen 40 mg/dL (7-17); Calcium 9.8 mg/dL (8.4-10.2); Carbon Dioxide 20 mmol/L (22-32); Chloride 116 mmol/L (98-107); Estimated Glomerular Filt Rate 11.2 mL/min (>60); Glucose 87 mg/dL (80-110); HEMOLYSIS < 15 (0-50); Potassium 3.4 mmol/L (3.4-5.1); Sodium 140 mmol/L (137-145)
[2021-02-27] MEDS: SODIUM CHLORIDE 0.9% 1,000 ML 150 ML IV ×2 (05:49→23:57)
[2021-02-27] MEDS: PANTOPRAZOLE DR 40 MG TABLET PO (05:49)
[2021-02-27 09:08] VITALS: BP 149/68; PULSE 63; RESP 16; TEMP 36.2; O2SAT 97
[2021-02-27] MEDS: HEPARIN 5,000 UNIT/ML VIAL 5000 UNIT SUBCUT ×2 (10:00→20:37)
--- NOTE | 2021-02-27 12:12 | P.PN_ITS ---
Subjective Subjective Interval history: 65-year-old female admitted to the hospital for acute renal failure, and hypercalcemia. Overall she feels significantly improved. She continues to have large volume urine output. With IV hydration and oral intake she is able to manage to keep up with urine output. She denies shortness of breath Exam Vital Signs (past 8 hours): - 02/27/21 04:55 02/27/21 09:08 Temperature 97.7 F 97.1 F L Pulse Rate 80 63 Respiratory Rate 16 16 Blood Pressure 138/65 149/68 H Pulse Oximetry 94 97 Oxygen Delivery Method Room Air Oxygen Flow Rate 0 Narrative Exam Narrative: Pleasant female resting comfortably in no obvious distress HENMT Other: Normocephalic atraumatic, sclerae anicteric, extraocular muscles are intact Resp Other: Lungs are clear to auscultation Cardio Other: Cardiac exam: Regular rate and rhythm normal S1-S2 with a 2/6 systolic ejection murmur GI Other: Abdomen soft nontender nondistended without hepatosplenomegaly Extrem Other: No edema Objective Labs Result Diagrams: 02/27/21 04:54 02/27/21 04:54 Labs: Laboratory Results - last 24 hr 02/25/21 02/27/21 02/27/21 07:46 04:54 04:54 WBC 6.8 RBC 2.94 L Hgb 9.0 L Hct 26.2 L MCV 89.0 MCH 30.6 MCHC 34.3 RDW 12.5 Plt Count 269 Neut % (Auto) 61.0 Lymph % (Auto) 28.7 [place] % (Auto) 7.1 Eos % (Auto) 2.6 Baso % (Auto) 0.6 Neut # (Auto) 4100 Lymph # (Auto) 1900 [place] # (Auto) 500 Eos # (Auto) 200 Baso # (Auto) 0 Sodium 140 Potassium 3.4 Chloride 116 H Carbon Dioxide 20 L BUN 40 H Creatinine 4.00 H Estimated GFR 11.2 L BUN/Creatinine Ratio 10.0 Glucose 87 Calcium 9.8 Free [place] Light Chains 86.1 H Free Lambda Light Chain 39.8 H Free [place]/Lambda Ratio 2.16 H PFSH Medical History Acute renal failure (ARF) No active medical problems Surgical History No history of previous surgery Social History household members: spouse Smoking Status: Never smoker Assessment & Plan Assessment & Plan narrative: Acute renal failure -initial creatinine 8.48, improved after IV fluids to 4.0 -etiology has been presumed initially to be due to severe volume depletion -urine sodium elevated, but appears to be after received IV fluid, lowering yield -has been presumed based on story to have severe prerenal FRAN -UOP has been excellent, and IV fluids have improved kidney function but only s lowly -UA shows slight protein and blood, nonspecific in this setting -CT shows no evidence of obstruction -continue IV hydration to match urine output -will continue to monitor creatinine daily -will avoid nephrotoxic agents, patient does admit to using ibuprofen as an outpatient for sinus headache 2. Hypercalcemia, severe, acute -etiology initially thought secondary to renal failure and dehydration, patient consuming excessive Tums likely contributing to hypercalcemia as well -hydrating patient improve calcium, calcium 9.8, now normal -ordered for calctinon on 02/25 -PTH on the low side at 20, unlikely to be primary hyperparathyroidism -SPEP, UPEP, free light chains ordered to eval for possible myeloma -skeletal survey negative lytic lesions -25-OH vitamin D ordered and low -1,25 vitamin D ordered and pthrp ordered -suspicious for possible malignancy -TSH ok 3. Hypokalemia -improved with repletion -continue to replete as needed 4. Hyperphosphatemia,resolved -secondary to renal failure, improved with IV fluids 5. GERD -continue PPI -suggest outpatient upper endoscopy 6. Anemia -likely dilutional Quality VTE Deep Vein Thrombosis/Pulmonary Embolism Present on Admission: No
--- NOTE | 2021-02-27 14:14 | PC.NURSE ---
Am shift Pt is A/o x4, ambulating in king this shift independ. Crea improved, but Dr Shukla will recheck labs in am, and likely allow dc tomorrow. NACL @ 200 mls/hr, new PIV placed RUE. Showered. Education provided for renal diet restrictions. Denies pain, reports swelling to hands and feet, not grossly noticeable. Making needs known, call light in reach.
[2021-02-27 16:26] VITALS: BP 155/79; PULSE 60; RESP 17; TEMP 36.7; O2SAT 100
[2021-02-27] MEDS: SODIUM CHLORIDE 0.9% 1,000 ML 200 ML IV (18:47)
[2021-02-28] VITALS: BP 136/64; PULSE 72; RESP 16; TEMP 36.9; O2SAT 93
[2021-02-28] MEDS: PANTOPRAZOLE DR 40 MG TABLET PO (05:06)
[2021-02-28 05:29] LABS: Add Manual Diff / Slide Review NO; Basophils Absolute Auto 100 /uL (0-100); Basophils Percent Auto 1.8 % (0-2); Eosinophils Absolute Auto 200 /uL (0-450); Eosinophils Percent Auto 2.7 % (2-4); Hematocrit 24.7 % (36-46); Hemoglobin 8.5 g/dL (12.0-16.0); Lymphocytes Absolute Auto 1400 /uL (1100-4500); Lymphocytes Percent Auto 22.9 % (25-40); Mean Corpuscular HGB Conc 34.2 % (30-36); Mean Corpuscular Hemoglobin 30.5 PG (26-34); Mean Corpuscular Volume 89.1 fL (80-100); Monocytes Absolute Auto 400 /uL (0-900); Monocytes Percent Auto 6.8 % (3-14); Neutrophils Absolute Auto 4000 /uL (1500-7000); Neutrophils Percent Auto 65.8 % (50-75); Platelet Count 234 X10^3/uL (150-400); Red Blood Cell Count 2.77 X10^6/uL (4.0-5.2); Red Cell Distribution Width 12.2 % (11.6-14.8)
[2021-02-28 05:37] LABS: BUN Creatinine Ratio 9.4 (6-22); Blood Urea Nitrogen 29 mg/dL (7-17); Calcium 9.2 mg/dL (8.4-10.2); Carbon Dioxide 18 mmol/L (22-32); Chloride 120 mmol/L (98-107); Estimated Glomerular Filt Rate 15.1 mL/min (>60); Glucose 81 mg/dL (80-110); HEMOLYSIS < 15 (0-50); Magnesium 1.2 mg/dL (1.6-2.3); Potassium 3.2 mmol/L (3.4-5.1); Sodium 141 mmol/L (137-145)
[2021-02-28] MEDS: POTASSIUM CHLORIDE 20 MEQ TAB 40 MEQ PO (06:20)
[2021-02-28] MEDS: MAGNESIUM SULFATE 2 GM/50 ML PIGGYBACK IV (06:21)
[2021-02-28] MEDS: SODIUM CHLORIDE 0.9% 1,000 ML 150 ML IV (06:43)
[2021-02-28 08:00] VITALS: BP 146/76; PULSE 58; RESP 17; TEMP 36.6; O2SAT 98
[2021-02-28] MEDS: HEPARIN 5,000 UNIT/ML VIAL 5000 UNIT SUBCUT (08:02)
[2021-02-28] MEDS: POTASSIUM CHLORIDE IN WATER 10 MEQ/100 ML PIGGYBACK 100 MEQ IV (08:15)
[2021-02-28 09:03] VITALS: O2SAT 98
--- NOTE | 2021-02-28 10:18 | P.DS_ITS ---
History of Present Illness History of Present Illness Date Patient Seen: 02/28/21 Time Patient Seen: 10:18 Chief complaint: dehydrated, cant keep anything down Narrative: MICHAEL Fraser: Belle Rubio is a 65-year-old female who presented the emergency department with 3-day history feeling generally unwell. Patient states she attributes her symptoms were a result of February heat wave. Patient states she thinks she got dehydrated after the heat wave over the 20 of February weekend. Patient states she noticed on the she was dizzy when she tried to walk to the local parade. She states she did have 2 syncopal episodes where she fainted. She had sensation that she was going to pass out. She has been moving slower. She has had a mild headache but nothing like severe headache she has had in the past. She has had decreased appetite, she has had a mild cough which has been nonproductive. She does ensorse having the shakes, new onset blurred vision, being unable to chew a dried food, and constipation which is new for her. She has had nausea and vomiting for the past 2 days although she started to drink Ensure and was able to keep it down yesterday. She denies any chest pain or shortness of breath. She denies any abdominal pain, no back or flank pain. Patient denies any changes in her urine output and states it has not been dark, she has not had frequency, dysuria, urgency or even a decrease in output. She has not appreciate any swelling her lower extremities. She states she does not have any known past medical history. She has not seen primary care physician in the last couple years, no prior surgeries, no allergies to medications. Patient does ride horses recreationally. Denies tobacco, alcohol or illicit drug use. Patient's chest x-ray and noncontrast CT of the chest abdomen and pelvis were negative for any acute process. Patient's temp was 97.6?, blood pressure 134/67, heart rate 83, respiratory rate 13, oxygen saturation 97% on room air, she weighs 53.9 kg with a BMI of 19.2. WBC is 7.3, RBC 3.71, hemoglobin 11.4, hematocrit 32.4, platelet count 352, sodium 1 29, potassium 2.8, chloride 68, bicarb 45, BUN 88, creatinine 8.5, with a EGFR 4.7, calcium was 15.3, phosphorus 6.0, magnesium 2.4, AST 49, TSH is normal at 1.25, brain 8 retic peptide is elevated at 816, PTH intact, calcium PTH intact, PTH intact interoperative, SPEP, UPEP, and free serum light chains are pending. COVID-19 PCR was negative. Discharge Providers Provider Date of admission: 02/24/21 19:02 Discharge Date: 02/28/21 Discharge provider: Mehrdad Guerrero DO Summary Hospital Course Discharge Diagnosis: 1. Acute renal failure, improved 2. Hypercalcemia, severe, acute, resolved 3. Hypokalemia 4. Hyperphosphatemia,resolved 5. GERD 6. Anemia 7. Hypo magnesemia Hospital Course: This was a 65-year-old female admitted to the hospital for acute renal failure likely secondary to ATN with an initial creatinine of 8.48. She had a number of electrolyte abnormalities including hypercalcemia, hypokalemia, hypo magnesemia, and hyperphosphatemia secondary to her renal failure which were managed medically. She did receive a dose of calcitonin on 02/25 for her hypercalcemia, however this was likely in the setting of severe dehydration as her calcium remained normal after improvement in her serum creatinine. She was provided mainly with IV fluids with improvement in her serum creatinine to 3.08 on the day of discharge. She was feeling back to her usual self at that time. I do recommend repeat evaluation in a few days as an outpatient while the patient weights to establish care with a primary care provider to ensure that her electrolytes remain okay and her creatinine co ntinues to improve. She further had a notable anemia, likely related to her renal disease and decreased dramatically due to hydration. I did order her for repeat CBCs an outpatient as well, and further evaluation as an outpatient could be considered. Given her GERD symptoms, she likely will need an outpatient endoscopy as well. Time Spent with Patient Time spent: Greater than 30 minutes Exam Vital Signs (past 8 hours): - 02/28/21 08:00 02/28/21 09:03 Temperature 97.8 F Pulse Rate 58 L Respiratory Rate 17 Blood Pressure 146/76 H Pulse Oximetry 98 98 Oxygen Delivery Method Room Air Oxygen Flow Rate 0 Narrative Exam Narrative: Gen: Alert, oriented, thin 65 y.o. female, NAD HEENT: normocephalic, atraumatic, conjunctiva clear, sclera non-icteric, oral mucosa dry Neck: supple, full ROM, no JVD, trachea is midline Resp: Lungs CTA, non-labored breathing CV: RRR, no murmur or rubs Abd: soft, non-tender, normoactive BTs Skin: dry, poor turgor, no lesions or rashes, dry and intact Neuro: Alert and oriented X 4 w/no focal deficits. Speech clear and coherent. Extremities: moves all 4 extremities, is ambulatory, negative Bina?s sign Psyche: normal mood and affect. Objective Labs Result Diagrams: 02/28/21 05:00 02/28/21 05:00 Labs: Laboratory Results - last 24 hr 02/28/21 02/28/21 05:00 05:00 WBC 6.0 RBC 2.77 L Hgb 8.5 L Hct 24.7 L MCV 89.1 MCH 30.5 MCHC 34.2 RDW 12.2 Plt Count 234 Neut % (Auto) 65.8 Lymph % (Auto) 22.9 L [place] % (Auto) 6.8 Eos % (Auto) 2.7 Baso % (Auto) 1.8 Neut # (Auto) 4000 Lymph # (Auto) 1400 [place] # (Auto) 400 Eos # (Auto) 200 Baso # (Auto) 100 Sodium 141 Potassium 3.2 L Chloride 120 H Carbon Dioxide 18 L BUN 29 H Creatinine 3.08 H Estimated GFR 15.1 L BUN/Creatinine Ratio 9.4 Glucose 81 Calcium 9.2 Magnesium 1.2 L PFSH Medical History Acute renal failure (ARF) No active medical problems Surgical History No history of previous surgery Social History household members: spouse Smoking Status: Never smoker Discharge Plan Discharge Plan Patient Disposition: Home Provider Discharge Comment: You were admitted to the hospital with an acute kidney injury. No further NSAID medications at home (ibuprofen, naproxen, etc). Please follow up with a PCP as soon as possible. Labs ordered for later this week to check that kidney function is still improving. Stay well hydrated at home, continue multivitamin. Discharge orders & Medications Prescriptions: Discontinued ibuprofen [Advil Liqui-Gel] 200 MG capsule 200 mg PO TID PRN (Reason: Pain, Moderate) Qty: 0 RF: 0 Other Ambulatory Orders: Basic Metabolic Panel (Routine) Timeframe: 3 Days Facility: [facility] - Location: Laboratory Ordered By: Mehrdad Guerrero Complete Blood Count NO DIFF (Routine) Timeframe: 3 Days Facility: [facility] - Location: Laboratory Ordered By: Mehrdad Guerrero Diet/Activity/Treatments Diet: Diet as Tolerated Activity: As tolerated Visit Report/Discharge Packet Instructions: Acute Kidney Injury Quality VTE Deep Vein Thrombosis/Pulmonary Embolism Present on Admission: No
--- NOTE | 2021-02-28 10:50 | PC.NURSE ---
Addendum entered by Myra Rose R.N. 02/28/21 12:55: d/c instructions reviewed with patient and patient's SO, including rx medications, s/sx FRAN, FRAN prevention; s/sx of stroke, f/u care and lab work; personal belongings returned from safe; pt escorted via wheelchair to private vehicle Original Note: Patient denies nausea, tolerated breakfast; A&O X4; patient showering before discharge; IV d/c
[2021-02-28 11:59] VITALS: O2SAT 98
[2021-02-28 14:42] LABS: Immunoglobulin A, Serum 131 mg/dL (87-352); Immunoglobulin G,Serum 950 mg/dL (586-1602); Immunoglobulin M, Serum 127 mg/dL (26-217)
--- NOTE | 2021-02-28 16:37 | CM.DPC ---
DCP Continued: [employer] Student met with patient this morning she is aware of today?s D/C. Provided patient with the Important Message from Medicare. PLAN: D/C home with [facility] providing transportation. KIT Burrell MSW Student
[2021-03-07 20:35] LABS: 1,25-Dihydroxy, Vitamin D-2 <10 pg/mL (.)
== END 2021-02-28 11:40 | disposition home or self-care (01) | DRG 640 ==
LOC: ED 14:10 → AC 19:03 → ICU 02-25 06:43 → AC 02-28 10:28 → ICU 03-01 15:28
PROVIDERS: Nurse Practitioner Family; Admitting Provider Internal Medicine; Emergency Provider Emergency Medicine; Referring Provider Emergency Medicine; Visit Provider Internal Medicine
DX: E86.0 Dehydration (principal); N17.0 Acute kidney failure with tubular necrosis; E83.39 Other disorders of phosphorus metabolism; E83.52 Hypercalcemia; E87.6 Hypokalemia; K21.9 Gastro-esophageal reflux disease without esophagitis; R51.9 Headache, unspecified; Z20.822 Contact with and (suspected) exposure to COVID-19; Z71.3 Dietary counseling and surveillance
CPT/HCPCS: 36415; 51702; 70450; 71250; 74176; 77075; 80048; 80053; 81001; 82306; 82310; 82397; 82550; 82570; 82652; 82784; 83605; 83690; 83735; 83880; 83883; 83930; 83970; 84100; 84155; 84300; 84443; 84484; 85025; 86334; 86335; 87040; 87086; 87635; 87797; 93005; 94762; 96361; 96365; 96366; 99284; 99291; C9803; C9113; J0630; J1644; J3475

== ENCOUNTER → 2021-03-04 07:25 | Outpatient (CLI) | payer MEDICARE, SELFPAY ==
[2021-02-24 22:34] VITALS: BMI 19.2
[2021-03-04 08:32] LABS: Hematocrit 26.1 % (36-46); Hemoglobin 8.9 g/dL (12.0-16.0); Mean Corpuscular HGB Conc 34.1 % (30-36); Mean Corpuscular Hemoglobin 30.4 PG (26-34); Mean Corpuscular Volume 89.4 fL (80-100); Platelet Count 362 X10^3/uL (150-400); Red Blood Cell Count 2.91 X10^6/uL (4.0-5.2); White Blood Cell Count 6.3 X10^3/uL (4.5-11.0)
[2021-03-04 09:02] LABS: BUN Creatinine Ratio 9.9 (6-22); Blood Urea Nitrogen 22 mg/dL (7-17); Calcium 9.1 mg/dL (8.4-10.2); Carbon Dioxide 20 mmol/L (22-32); Chloride 114 mmol/L (98-107); Glucose 80 mg/dL (80-110); HEMOLYSIS < 15 (0-50); Potassium 4.9 mmol/L (3.4-5.1); Sodium 139 mmol/L (137-145)
== END ==
PROVIDERS: Referring Provider Internal Medicine; Visit Provider Internal Medicine
DX: N17.9 Acute kidney failure, unspecified (principal); D64.9 Anemia, unspecified
CPT/HCPCS: 36415; 80048; 85027

== ENCOUNTER → 2021-03-21 08:33 | Outpatient (CLI) | payer MEDICARE, SELFPAY ==
[2021-02-24 22:34] VITALS: BMI 19.2
[2021-03-21 10:13] LABS: Add Manual Diff / Slide Review NO; Basophils Absolute Auto 0 /uL (0-100); Basophils Percent Auto 0.4 % (0-2); Eosinophils Absolute Auto 100 /uL (0-450); Hematocrit 30.4 % (36-46); Hemoglobin 10.4 g/dL (12.0-16.0); Lymphocytes Absolute Auto 700 /uL (1100-4500); Lymphocytes Percent Auto 12.2 % (25-40); Mean Corpuscular HGB Conc 34.2 % (30-36); Mean Corpuscular Hemoglobin 31.1 PG (26-34); Monocytes Absolute Auto 400 /uL (0-900); Monocytes Percent Auto 7.4 % (3-14); Neutrophils Absolute Auto 4400 /uL (1500-7000); Platelet Count 315 X10^3/uL (150-400); Red Blood Cell Count 3.34 X10^6/uL (4.0-5.2); Red Cell Distribution Width 13.8 % (11.6-14.8); White Blood Cell Count 5.6 X10^3/uL (4.5-11.0)
[2021-03-21 11:16] LABS: Alanine Aminotransferase 19 IU/L (<35); Albumin Globulin Ratio 1.4 (1.0-2.8); Alkaline Phosphatase 94 U/L (38-126); Aspartate Aminotransferase 30 IU/L (14-36); BUN Creatinine Ratio 13.7 (6-22); Bilirubin Total 0.8 mg/dL (0.2-1.3); Blood Urea Nitrogen 19 mg/dL (7-17); Calcium 10.5 mg/dL (8.4-10.2); Carbon Dioxide 26 mmol/L (22-32); Chloride 105 mmol/L (98-107); Estimated Glomerular Filt Rate 37.8 mL/min (>60); Globulin 2.9 g/dL (1.7-4.1); Glucose 98 mg/dL (80-110); HEMOLYSIS < 15 (0-50); Potassium 4.5 mmol/L (3.4-5.1); Sodium 138 mmol/L (137-145); Total Protein 6.9 g/dL (6.3-8.2)
== END ==
PROVIDERS: PCP Registered Nurse; Referring Provider Registered Nurse; Visit Provider Registered Nurse
DX: D64.9 Anemia, unspecified (principal); E83.52 Hypercalcemia; E87.1 Hypo-osmolality and hyponatremia; E87.6 Hypokalemia; N17.9 Acute kidney failure, unspecified
CPT/HCPCS: 36415; 80053; 85025

== ENCOUNTER → 2021-04-08 07:58 | Outpatient (CLI) | payer MEDICARE, SELFPAY ==
[2021-02-24 22:34] VITALS: BMI 19.2
[2021-04-08 08:56] LABS: BUN Creatinine Ratio 11.7 (6-22); Blood Urea Nitrogen 14 mg/dL (7-17); Calcium 10.6 mg/dL (8.4-10.2); Carbon Dioxide 29 mmol/L (22-32); Chloride 105 mmol/L (98-107); Estimated Glomerular Filt Rate 44.8 mL/min (>60); Glucose 96 mg/dL (80-110); HEMOLYSIS < 15 (0-50); Sodium 140 mmol/L (137-145)
== END ==
PROVIDERS: PCP Registered Nurse; Referring Provider Registered Nurse; Visit Provider Registered Nurse
DX: N17.9 Acute kidney failure, unspecified (principal)
CPT/HCPCS: 36415; 80048

== ENCOUNTER → 2021-05-04 12:10 | Outpatient (CLI) | payer MEDICARE, SELFPAY ==
[2021-02-24 22:34] VITALS: BMI 19.2
[2021-05-04 12:40] LABS: Hematocrit 33.5 % (36-46); Hemoglobin 11.3 g/dL (12.0-16.0); Mean Corpuscular HGB Conc 33.8 % (30-36); Mean Corpuscular Hemoglobin 30.2 PG (26-34); Mean Corpuscular Volume 89.3 fL (80-100); Platelet Count 430 X10^3/uL (150-400); Red Blood Cell Count 3.75 X10^6/uL (4.0-5.2); Red Cell Distribution Width 12.8 % (11.6-14.8); White Blood Cell Count 7.6 X10^3/uL (4.5-11.0)
[2021-05-04 13:58] LABS: BUN Creatinine Ratio 7.5 (6-22); Blood Urea Nitrogen 9 mg/dL (7-17); Calcium 10.8 mg/dL (8.4-10.2); Carbon Dioxide 32 mmol/L (22-32); Chloride 99 mmol/L (98-107); Estimated Glomerular Filt Rate 44.8 mL/min (>60); Glucose 86 mg/dL (80-110); HEMOLYSIS < 15 (0-50); Potassium 4.6 mmol/L (3.4-5.1); Sodium 137 mmol/L (137-145)
[2021-05-04 15:06] LABS: Creatinine Urine Random 35.9 mg/dL; Protein (Total) Urine Random 13 mg/dL (0-12); Protein Creatinine Ratio Urine 0.36 GRAM/24H
== END ==
PROVIDERS: PCP Registered Nurse; Referring Provider Student in an Organized Health Care Education/Training Program; Visit Provider Student in an Organized Health Care Education/Training Program
DX: N05.9 Unspecified nephritic syndrome with unspecified morphologic changes (principal); D70.9 Neutropenia, unspecified; D63.1 Anemia in chronic kidney disease
CPT/HCPCS: 36415; 80048; 82570; 84156; 85027

== ENCOUNTER → 2021-05-06 08:25 | Outpatient (CLI) | payer MEDICARE, SELFPAY ==
[2021-02-24 22:34] VITALS: BMI 19.2
--- NOTE | 2021-05-06 08:26 | DI.RAD.S_ITS ---
PROCEDURE: XR LUMBAR SPINE MIN 4V INDICATIONS: lower back pain TECHNIQUE: 5 views of the lumbar spine were acquired, including bilateral oblique views. COMPARISON: [facility], CR, XR BONE SURVEY, 02/25/2021, 15:28. [facility], CT, CT CHEST ABD PEL WO CON, 02/24/2021, 13:40. FINDINGS: Bones: 5 nonrib-bearing vertebrae are present. There is normal bony alignment. Mild compression deformities are seen involving all of the lumbar vertebrae from L1 through L5 and like T12, which are new when compared to the radiographs from 02/25/[address] from 02/24/2021. Facet hypertrophy is seen in the lower lumbar spine. Soft tissues: Overlying bowel gas pattern is nonobstructive with moderate stool throughout the colon. No suspicious soft tissue calcifications. Oblique images: No pars defects. IMPRESSION: Mild compression fractures involving the entire lumbar spine from T12 through L5, which are new when compared to the radiographs from 02/25/2021. MRI of the lumbar spine with and without contrast could be performed to evaluate for an underlying pathologic process if indicated clinically and if there are no contraindications to MRI. Dictated by: Chandrakant Cutler M.D. on 05/06/2021 at 8:58 Approved by: Chandrakant Cutler M.D. on 05/06/2021 at 9:04
== END ==
PROVIDERS: PCP Registered Nurse; Referring Provider Registered Nurse; Visit Provider Registered Nurse
DX: S32.009A Unspecified fracture of unspecified lumbar vertebra, initial encounter for closed fracture (principal); M54.5 Low back pain
CPT/HCPCS: 72110

== ENCOUNTER → 2021-05-12 08:02 | Outpatient (CLI) | payer MEDICARE, SELFPAY ==
[2021-02-24 22:34] VITALS: BMI 19.2
[2021-05-12 10:08] LABS: BUN Creatinine Ratio 6.6 (6-22); Blood Urea Nitrogen 8 mg/dL (7-17); Carbon Dioxide 31 mmol/L (22-32); Chloride 103 mmol/L (98-107); Estimated Glomerular Filt Rate 44.4 mL/min (>60); HEMOLYSIS < 15 (0-50)
[2021-05-12 10:10] LABS: Calcium 10.9 mg/dL (8.4-10.2); Glucose 87 mg/dL (80-110); Potassium 4.4 mmol/L (3.4-5.1); Sodium 139 mmol/L (137-145)
[2021-05-16 12:13] LABS: Alpha-1 Globulin, Ur 12.5 % (.); Beta Globulin, Ur 24.3 % (.); M-Spike % Not Observed % (Not Observed); Urine Total Protein 5.3 mg/dL (Not Estab.)
[2021-05-16 15:07] LABS: Albumin 3.5 g/dL (2.9-4.4); Alpha-1-Globulin 0.3 g/dL (0.0-0.4); Alpha-2-Globulin 0.9 g/dL (0.4-1.0); Gamma Globulin 1.3 g/dL (0.4-1.8); Globulin Total 3.6 g/dL (2.2-3.9); Immunoglobulin A, Serum 155 mg/dL (87-352); Immunoglobulin G,Serum 1213 mg/dL (586-1602); Immunoglobulin M, Serum 152 mg/dL (26-217); Protein, Total 7.1 g/dL (6.0-8.5)
== END ==
PROVIDERS: PCP Registered Nurse; Referring Provider Student in an Organized Health Care Education/Training Program; Visit Provider Student in an Organized Health Care Education/Training Program
DX: N05.9 Unspecified nephritic syndrome with unspecified morphologic changes (principal); D47.2 Monoclonal gammopathy
CPT/HCPCS: 36415; 80048; 82784; 84155; 84156; 84165; 84166; 86334; 86335

== ENCOUNTER → 2021-05-26 10:51 | Outpatient (CLI) | payer MEDICARE, SELFPAY ==
[2021-02-24 22:34] VITALS: BMI 19.2
[2021-05-26 11:21] LABS: Hematocrit 33.6 % (36-46); Hemoglobin 11.3 g/dL (12.0-16.0)
[2021-05-26 11:42] LABS: Appearance Urine UA CLEAR; Bilirubin Urine UA NEGATIVE (NEGATIVE); Color Urine UA YELLOW; Glucose Urine UA NEGATIVE (Negative); Ketones Urine UA NEGATIVE (NEGATIVE); Leukocyte Esterase Urine UA 1+ (NEGATIVE); Nitrite Urine UA NEGATIVE (Negative); Occult Blood Urine UA NEGATIVE (Negative); Protein Urine UA NEGATIVE (Negative); Specific Gravity Urine UA <=1.005 (1.000-1.035); Urobilinogen Urine UA 0.2 E.U./dL (0.2)
[2021-05-26 11:52] LABS: Iron 35 ug/dL (37-170)
[2021-05-26 11:54] LABS: BUN Creatinine Ratio 12.1 (6-22); Blood Urea Nitrogen 13 mg/dL (7-17); Calcium 10.8 mg/dL (8.4-10.2); Carbon Dioxide 33 mmol/L (22-32); Chloride 94 mmol/L (98-107); Estimated Glomerular Filt Rate 51.1 mL/min (>60); Glucose 84 mg/dL (80-110); HEMOLYSIS < 15 (0-50); Phosphorous 4.4 mg/dL (2.8-4.1); Potassium 4.3 mmol/L (3.4-5.1); Sodium 133 mmol/L (137-145)
[2021-05-26 12:01] LABS: Percent Iron Saturation 11 % (15-50); Total Iron Binding Capacity 305 ug/dL (265-497)
[2021-05-26 12:04] LABS: Bacteria Urine Few (2-10); Culture Indicated Urine Specimen Cultured; RBC Urine None Seen (0-5/HPF); Squamous Epithelial Cell Urine 0-1 /HPF (0-5/HPF); WBC Urine 1-5/HPF (0-5/HPF)
[2021-05-26 12:10] LABS: Vitamin D 25 Hydroxy (D3) 48.2 ng/mL (30.0-100.0)
[2021-05-26 12:14] LABS: Creatinine Urine Random 13.1 mg/dL; Protein (Total) Urine Random 16 mg/dL (0-12); Protein Creatinine Ratio Urine 1.22 GRAM/24H
[2021-05-26 12:27] LABS: Ferritin 15 ng/mL (11-264)
[2021-05-27 07:28] LABS: Parathyroid Hormone Int 18 pg/mL (15-65)
[2021-05-30 12:18] LABS: Calcitonin <2.0 pg/mL (0.0-5.0)
== END ==
PROVIDERS: PCP Registered Nurse; Referring Provider Student in an Organized Health Care Education/Training Program; Visit Provider Student in an Organized Health Care Education/Training Program
DX: N05.9 Unspecified nephritic syndrome with unspecified morphologic changes (principal); D50.0 Iron deficiency anemia secondary to blood loss (chronic); E83.30 Disorder of phosphorus metabolism, unspecified; D64.9 Anemia, unspecified; N25.81 Secondary hyperparathyroidism of renal origin; N30.00 Acute cystitis without hematuria; R80.9 Proteinuria, unspecified
CPT/HCPCS: 36415; 80048; 81001; 82306; 82308; 82570; 82728; 83540; 83550; 83970; 84100; 84156; 85014; 85018; 87086

== ENCOUNTER → 2021-06-16 09:06 | Outpatient (CLI) | payer MEDICARE, SELFPAY ==
[2021-02-24 22:34] VITALS: BMI 19.2
[2021-06-16 10:42] LABS: BUN Creatinine Ratio 8.1 (6-22); Blood Urea Nitrogen 10 mg/dL (7-17); Calcium 10.7 mg/dL (8.4-10.2); Carbon Dioxide 30 mmol/L (22-32); Chloride 101 mmol/L (98-107); Estimated Glomerular Filt Rate 43.6 mL/min (>60); Glucose 84 mg/dL (80-110); HEMOLYSIS < 15 (0-50); Potassium 4.7 mmol/L (3.4-5.1); Sodium 138 mmol/L (137-145)
[2021-06-16 11:06] LABS: Free T4, Direct Thyroxine 1.02 ng/dL (0.78-2.19)
[2021-06-16 11:20] LABS: Thyroid Stimulating Hormone 1.49 uIU/mL (0.47-4.68)
[2021-06-17 14:31] LABS: Free Lambda Lt Chains,Serum 23.9 mg/L (5.7-26.3)
[2021-06-20 11:31] LABS: Vitamin A 49.1 ug/dL (22.0-69.5)
[2021-06-20 18:03] LABS: Albumin 3.2 g/dL (2.9-4.4); Alpha-1-Globulin 0.3 g/dL (0.0-0.4); Alpha-2-Globulin 0.7 g/dL (0.4-1.0); Gamma Globulin 1.2 g/dL (0.4-1.8); Globulin Total 3.4 g/dL (2.2-3.9); Immunoglobulin A, Serum 146 mg/dL (87-352); Immunoglobulin G,Serum 1186 mg/dL (586-1602); Immunoglobulin M, Serum 154 mg/dL (26-217); Protein, Total 6.6 g/dL (6.0-8.5)
[2021-06-27 19:04] LABS: Urine Total Protein 13.4
[2021-06-28 18:34] LABS: 1,25-Dihydroxy, Vitamin D-2 <10 pg/mL (.)
== END ==
PROVIDERS: PCP Registered Nurse; Referring Provider Student in an Organized Health Care Education/Training Program; Visit Provider Student in an Organized Health Care Education/Training Program
DX: E03.9 Hypothyroidism, unspecified (principal); E83.52 Hypercalcemia; N05.9 Unspecified nephritic syndrome with unspecified morphologic changes; R80.9 Proteinuria, unspecified; D47.2 Monoclonal gammopathy
CPT/HCPCS: 36415; 80048; 82397; 82652; 82784; 83883; 84155; 84156; 84165; 84166; 84439; 84443; 84590; 86334; 86335

== ENCOUNTER → 2021-06-23 09:04 | Outpatient (CLI) | payer MEDICARE, SELFPAY ==
[2021-02-24 22:34] VITALS: BMI 19.2
--- NOTE | 2021-06-23 | DI.MRI.S_ITS ---
PROCEDURE: MR THORACIC SPINE WO CON INDICATIONS: Radiculopathy, lumbar and thoracic region TECHNIQUE: Noncontrast sagittal T1 spine echo and T2 fast spin echo, sagittal STIR, axial T1 and T2 fast spin echo through the thoracic spine. COMPARISON: [facility], CR, XR THORACOLUMBAR SPINE 2 VIEWS, 05/24/2021, 9:18. FINDINGS: Subacute fractures of the T8 and T9 vertebral bodies are noted with marrow edema. Overall, no definite change in vertebral body height loss since 05/24/21. Chronic fracture of the T7 vertebral body with no marrow edema. There is mild central height loss of the T12 and L1 vertebral bodies with no associated marrow edema. No associated canal stenosis No definite foraminal stenoses. The remaining vertebral body heights grossly preserved. Subcentimeter renal foci, statistically cysts, although technically too small to characterize accurately and therefore nonspecific. IMPRESSION: Subacute fractures of the T8 and T9 vertebral bodies with no definite interval progression and height loss. Additional chronic appearing thoracolumbar fractures as above. No canal stenosis. No definite foraminal narrowing. Dictated by: Bhanu Franks M.D. on 06/23/2021 at 11:59 Approved by: Bhanu Franks M.D. on 06/23/2021 at 13:07
--- NOTE | 2021-06-23 | DI.MRI.S_ITS ---
PROCEDURE: MR LUMBAR SPINE WO CON INDICATIONS: Radiculopathy, lumbar and thoracic region TECHNIQUE: Noncontrast sagittal T1 spin echo and T2 fast echo, sagittal STIR, axial T1 and T2 fast spin echo through the lumbar spine. In cases with scoliosis, additional coronal T2 fast spin echo may be performed. COMPARISON: None. FINDINGS: Image quality: Excellent. Alignment and Curvature: There is normal bony alignment. Bone Marrow: There are numerous endplate compression fractures, all of which appear chronic without definite associated marrow edema, except at L3 inferior endplate where there is minimal edema. There is slight , largely central height loss of all of the vertebral bodies of the lumbar spine Multilevel chronic appearing Schmorl's nodes. Spinal Cord: Conus medullaris terminates at the L1-L2 level. Visualized cord demonstrates normal signal and size. Paraspinous Soft Tissues: Subcentimeter renal foci, statistically cysts, although technically too small to characterize accurately and therefore nonspecific. T12-L1: Normal appearance. L1-L2: Normal appearance. L2-L3: Mild dorsal epidural lipomatosis. Minimal central canal narrowing. Partial effacement of both lateral recesses with bilaterally symmetric appearance. [id number] bilateral foraminal narrowing. L3-L4: Minimal canal narrowing. Dorsal epidural lipomatosis. Partial effacement of both lateral recesses with bilaterally symmetric appearance. Moderate left foraminal stenosis with slight nerve root compression. Mild right foraminal narrowing. L4-L5: Mild canal narrowing. Dorsal epidural lipomatosis. Partial effacement of both lateral recesses with bilaterally symmetric appearance. Moderate left foraminal stenosis with slight nerve root compression. Mild right foraminal narrowing. L5-S1: No canal or lateral recess narrowing. Mild right and left foraminal narrowing. IMPRESSION: Diffuse , mostly chronic endplate fractures throughout the lumbar spine, with mild central height loss of the lumbar vertebral bodies. There is minimal marrow edema seen at the level of the L3 inferior endplate. No high-grade canal stenosis. Multilevel chronic appearing Schmorl's nodes Mild dorsal epidural lipomatosis Bilateral foraminal narrowing as detailed above. Dictated by: Bhanu Franks M.D. on 06/23/2021 at 13:07 Approved by: Bhanu Franks M.D. on 06/23/2021 at 13:15
== END ==
PROVIDERS: PCP Registered Nurse; Referring Provider Orthopaedic Surgery; Visit Provider Orthopaedic Surgery
DX: M54.16 Radiculopathy, lumbar region (principal); M54.14 Radiculopathy, thoracic region; M48.56XA Collapsed vertebra, not elsewhere classified, lumbar region, initial encounter for fracture; M48.54XA Collapsed vertebra, not elsewhere classified, thoracic region, initial encounter for fracture; M51.46 Schmorl's nodes, lumbar region; E88.2 Lipomatosis, not elsewhere classified
CPT/HCPCS: 72146; 72148

== ENCOUNTER → 2021-06-28 10:36 | Outpatient (CLI) | payer MEDICARE, SELFPAY ==
[2021-02-24 22:34] VITALS: BMI 19.2
--- NOTE | 2021-06-28 10:37 | DI.RAD.S_ITS ---
PROCEDURE: XR KNEE RT 3V INDICATIONS: right knee pain TECHNIQUE: 3 views of the knee were acquired. COMPARISON: None. FINDINGS: Bones: No fractures or dislocations. No suspicious bony lesions. Soft tissues: No joint effusion. Calcification within the region of the femoral origin of the medial collateral ligament. IMPRESSION: 1. Findings suggestive of remote medial collateral ligament injury. 2. No acute fracture. No osseous lesion. If symptoms and/or clinical suspicion for pathology persist, further assessment with repeat, or advanced imaging (e.g., CT, MRI, or bone scan) may be helpful for further assessment. Dictated by: Christ Willard M.D. on 06/28/2021 at 14:12 Approved by: Christ Willard M.D. on 06/28/2021 at 14:13
== END ==
PROVIDERS: PCP Registered Nurse; Referring Provider Nurse Practitioner Family; Visit Provider Nurse Practitioner Family
DX: M25.561 Pain in right knee (principal)
CPT/HCPCS: 73562

== ENCOUNTER → 2021-07-21 10:00 | Outpatient (CLI) | payer MEDICARE, SELFPAY ==
[2021-02-24 22:34] VITALS: BMI 19.2
== END ==
PROVIDERS: PCP Registered Nurse; Referring Provider Registered Nurse; Visit Provider Registered Nurse
DX: Z80.3 Family history of malignant neoplasm of breast; Z78.0 Asymptomatic menopausal state; M81.0 Age-related osteoporosis without current pathological fracture; E83.52 Hypercalcemia; Z87.891 Personal history of nicotine dependence
CPT/HCPCS: 77080

== ENCOUNTER 2021-08-15 08:58 | Emergency (ER) | payer MEDICARE, SELFPAY ==
[2021-02-24 22:34] VITALS: BMI 19.2
[2021-08-15 09:15] VITALS: BP 153/92; PULSE 89; RESP 18; TEMP 37; O2SAT 99
[2021-08-15 09:32] VITALS: PULSE 80
--- NOTE | 2021-08-15 09:41 | DI.RAD.S_ITS ---
PROCEDURE: XR ANKLE RT MIN 3V INDICATIONS: pain TECHNIQUE: 3 views of the ankle were acquired. COMPARISON: None. FINDINGS: Bones: No fractures or dislocations. Ankle mortise is normally aligned. No suspicious bony lesions. No osseous erosive changes. No periosteal reaction. Small plantar calcaneal bone spur. Soft tissues: No tibiotalar joint effusion. Achilles tendon appears normal. No soft tissue gas. IMPRESSION: No fracture. No acute osseous lesion. If symptoms and/or clinical suspicion for pathology persists, further assessment with repeat radiographs (7-10 days) or advanced imaging (e.g. CT, MRI or bone scan) should be considered. Dictated by: Elizabeth Denton MD, PhD on 08/15/2021 at 10:05 Approved by: Elizabeth Denton MD, PhD on 08/15/2021 at 10:07
--- NOTE | 2021-08-15 09:51 | ED.EXTPRO ---
HPI - Extremity Problem General Chief complaint: Extremity Problem,Nontraumatic Stated complaint: Swelling in ankles Time Seen by Provider: 08/15/21 09:24 Source: patient Mode of arrival: Ambulatory History of Present Illness HPI Narrative: Patient is a 65-year-old female history of hypertension she had back surgery T8 kyphoplasty on July 28 a [facility] she said there were 2 small needle pokes is no incision sites, presenting today with at least 1 week or more of right ankle swelling. It is isolated in her lateral malleoli. She says it is is tender. She says it stops her from working. 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 She had low-grade fever the walk-in clinic of 100 but is afebrile here. She has been taking Tylenol and oxycodone for pain. She says it really has not changed much is just not going away. Very minimal redness. Quite tender to touch. No calf pain, no chest pain no shortness of breath no palpitations. She was seen evaluated walk-in clinic on August 08 at [facility], negative bilateral Dopplers Related Data Home Medications Medication Instructions Recorded Confirmed Prilosec PO 03/21/21 05/06/21 acetaminophen 500 mg capsule 1,000 mg PO Q6H PRN 08/15/21 08/15/21 lisinopril 2.5 mg tablet 2.5 mg PO DAILY 08/15/21 08/15/21 oxycodone 5 mg capsule 5 mg PO Q6H PRN 08/15/21 08/15/21 Previous Rx's Medication Instructions Recorded prednisone 20 mg tablet 20 mg PO DAILY #5 tab 08/15/21 Allergies Allergy/AdvReac Type Severity Reaction Status Date / Time No Known Drug Allergies Allergy Verified 08/15/21 09:31 Review of Systems Review of Systems Narrative: GENERAL: Denies chills, fatigue, malaise, fever, sweats, travel HEENT: Denies sinus pain, ear pain, sore throat, difficulty swallowing, neck pain RESPIRATORY: Denies dyspnea, cough, wheezing, hemoptysis, sputum. CARDIOVASCULAR: Denies chest pain, palpitations, orthopnea, edema GASTROINTESTINAL: Denies nausea, vomiting, abdominal pain, diarrhea, constipation, melena. : Denies dysuria, frequency, incontinence, hematuria, urinary retention, flank pain. MUSCULOSKELETAL: See HPI SKIN: No rash, no erythema, no pruritus NEUROLOGIC: Denies weakness, dizziness, headache, numbness, change in speech, confusion PSYCHIATRIC: No concerning psychosocial issues. 12 point review of systems is negative except for those stated above and HPI Patient History Medical History Acute renal failure (ARF) (~2020) Adult general medical exam Lower back pain No active medical problems Post-menopausal Screening for malignant neoplasm of colon Surgical History No history of previous surgery Social History household members: spouse Smoking Status: Never smoker Smoking Status: Never smoker alcohol intake frequency: holidays/special occasions only Substance Use Type: does not use Exam Initial Vital Signs Initial Vital Signs: Vital Signs Temperature 98.6 F 08/15/21 09:15 Pulse Rate 89 08/15/21 09:15 Respiratory Rate 18 08/15/21 09:15 Blood Pressure 153/92 H 08/15/21 09:15 Pulse Oximetry 99 08/15/21 09:15 GENERAL: Alert well-appearing HEENT: Head atraumatic,EOMI, pupils reactive, face symmetric, moist mucous membranes CARDIOVASCULAR: Regular rate and rhythm without murmurs, rubs or gallops. RESPIRATORY: Breath sounds equal bilaterally, no wheezes rales or rhonchi. ABDOMEN: Soft, nontender. Normoactive bowel sounds all 4 quadrants. No guarding or rebound. BACK: No tenderness EXTREMITIES: Normal range of motion, no clubbing or edema. Neurovascularly intact Right ankle lateral malleoli swelling very minimal redness. No calf pain calf is soft distal pedal pulse is present. It is tender to touch. NEUROLOGICAL: Alert and oriented x4.Normal gait and speech. SKIN: Warm, dry, no laceration, no petechiae, no rashes or lesions. Course Orders Ordered: ED Orders 08/15/21 09:41 XR ankle RT min 3V Stat 08/15/21 09:44 CBC Auto Diff [Complete Blood Count AUTO DIFF] Stat CMP [Comprehensive Metabolic Panel] Stat Uric Acid Stat 12/27/21 09:46 Procalcitonin Stat Vital Signs Vital signs: Vital Signs - 8 hr 08/15/21 09:15 08/15/21 09:32 Temperature 98.6 F Pulse Rate 89 Pulse Rate [Bilateral Dorsalis Pedis] 80 Respiratory Rate 18 Blood Pressure 153/92 H Pulse Oximetry 99 MDM - Extremity (Nontraumatic) Lab Data Result diagrams: 08/15/21 09:44 08/15/21 09:44 Labs: Lab Results 08/15/21 08/15/21 08/15/21 Range/Units 09:44 09:44 09:46 WBC 5.7 (4.5-11.0) X10^3/uL RBC 3.85 L (4.0-5.2) X10^6/uL Hgb 11.0 L (12.0-16.0) g/dL Hct 33.1 L (36-46) % MCV 85.8 (80-100) fL MCH 28.5 (26-34) PG MCHC 33.2 (30-36) % RDW 15.1 H (11.6-14.8) % Plt Count 468 H (150-400) X10^3/uL Neut % (Auto) 61.7 (50-75) % Lymph % (Auto) 27.1 (25-40) % [place] % (Auto) 9.0 (3-14) % Eos % (Auto) 1.3 L (2-4) % Baso % (Auto) 0.9 (0-2) % Neut # (Auto) 3500 (6357-1908) /uL Lymph # (Auto) 1600 (9584-2110) /uL [place] # (Auto) 500 (0-900) /uL Eos # (Auto) 100 (0-450) /uL Baso # (Auto) 0 (0-100) /uL Sodium 138 (137-145) mmol/L Potassium 4.3 (3.4-5.1) mmol/L Chloride 104 (98-107) mmol/L Carbon Dioxide 32 (22-32) mmol/L BUN 12 (7-17) mg/dL Creatinine 1.19 H (0.52-1.04) mg/dL Estimated GFR 45.2 L (>60) mL/min BUN/Creatinine Ratio 10.1 (6-22) Glucose 97 (80-110) mg/dL Uric Acid 4.6 (2.5-6.2) mg/dL Calcium 10.3 H (8.4-10.2) mg/dL Total Bilirubin 0.5 (0.2-1.3) mg/dL AST 25 (14-36) IU/L ALT 13 (<35) IU/L Alkaline Phosphatase 80 (38-126) U/L Total Protein 7.4 (6.3-8.2) g/dL Albumin 4.0 (3.5-5.0) g/dL Globulin 3.4 (1.7-4.1) g/dL Albumin/Globulin Ratio 1.2 (1.0-2.8) Procalcitonin 0.05 (<0.5) ng/mL Imaging Data Extremity x-ray #1: Radiologist's Impression: PROCEDURE:? XR ANKLE RT MIN 3V ? INDICATIONS:? pain ? TECHNIQUE:? 3 views of the ankle were acquired.? ? COMPARISON:? None. ? FINDINGS:? ? Bones:? No fractures or dislocations.? Ankle mortise is normally aligned.? No suspicious bony lesions.? No osseous erosive changes.? No periosteal reaction.? Small plantar calcaneal bone spur.? ? Soft tissues:? No tibiotalar joint effusion.? Achilles tendon appears normal.? No soft tissue gas. ? ? IMPRESSION:? No fracture. No acute osseous lesion. If symptoms and/or clinical suspicion for pathology persists, further assessment with repeat radiographs (7-10 days) or advanced imaging (e.g. CT, MRI or bone scan) should be considered. ? ? Dictated by: Elizabeth Denton MD, PhD on 08/15/2021 at 10:05 ? MDM Narrative Medical decision making narrative: Isolated lateral malleoli swelling for at least 1 week if not more. It does not move very minimal redness previously had low-grade fever at the walk-in clinic. Possible infection versus gout versus a arthritis. Patient has not overall negative workup. Doubt infection has been going on for more than a week minimal erythema and afebrile. No NSAIDs secondary to kidney function may try short course of prednisone see if that helps on a some pain. Uric acid is negative his x-ray is negative. At this time recommend outpatient follow-up Discharge Plan Departure Patient Disposition: Home Clinical Impression: Right ankle swelling Instructions: DI for Ankle Pain Activity Restrictions/Additional Instructions: *You have been diagnosed with ankle pain *What to do: And x-ray are overall reassuring. Possible inflammation of arthritis. However due to your kidneys I would avoid all NSAIDs, such as ibuprofen, Aleve, naproxen, etc. *Continue to take medications as directed Prednisone 20 mg once a day for 5 days--> SENT TO [facility] *Follow up with your primary care provider in 2-3 days or call [phone] *Return to ER if you should have increasing redness, pain, calf pain or swelling, chest pain, shortness of breath or any new, worsening or concerning symptoms Prescriptions: New prednisone 20 mg tablet 20 mg PO DAILY Qty: 5 0RF No Action lisinopril 2.5 mg tablet 2.5 mg PO DAILY 0RF acetaminophen 500 mg capsule 1,000 mg PO Q6H PRN0RF oxycodone 5 mg capsule 5 mg PO Q6H PRN0RF Prilosec PO 0RF Referrals: Patrick Daley ARNP [Primary Care Provider] -
[2021-08-15 10:17] LABS: Add Manual Diff / Slide Review NO; Basophils Absolute Auto 0 /uL (0-100); Basophils Percent Auto 0.9 % (0-2); Eosinophils Absolute Auto 100 /uL (0-450); Eosinophils Percent Auto 1.3 % (2-4); Hematocrit 33.1 % (36-46); Lymphocytes Absolute Auto 1600 /uL (1100-4500); Lymphocytes Percent Auto 27.1 % (25-40); Mean Corpuscular HGB Conc 33.2 % (30-36); Mean Corpuscular Hemoglobin 28.5 PG (26-34); Mean Corpuscular Volume 85.8 fL (80-100); Monocytes Absolute Auto 500 /uL (0-900); Neutrophils Absolute Auto 3500 /uL (1500-7000); Neutrophils Percent Auto 61.7 % (50-75); Platelet Count 468 X10^3/uL (150-400); Red Blood Cell Count 3.85 X10^6/uL (4.0-5.2); Red Cell Distribution Width 15.1 % (11.6-14.8); White Blood Cell Count 5.7 X10^3/uL (4.5-11.0)
[2021-08-15 10:30] LABS: Alanine Aminotransferase 13 IU/L (<35); Albumin Globulin Ratio 1.2 (1.0-2.8); Alkaline Phosphatase 80 U/L (38-126); Aspartate Aminotransferase 25 IU/L (14-36); BUN Creatinine Ratio 10.1 (6-22); Bilirubin Total 0.5 mg/dL (0.2-1.3); Blood Urea Nitrogen 12 mg/dL (7-17); Calcium 10.3 mg/dL (8.4-10.2); Carbon Dioxide 32 mmol/L (22-32); Chloride 104 mmol/L (98-107); Estimated Glomerular Filt Rate 45.2 mL/min (>60); Globulin 3.4 g/dL (1.7-4.1); Glucose 97 mg/dL (80-110); HEMOLYSIS < 15 (0-50); Potassium 4.3 mmol/L (3.4-5.1); Sodium 138 mmol/L (137-145); Total Protein 7.4 g/dL (6.3-8.2); Uric Acid 4.6 mg/dL (2.5-6.2)
[2021-08-15 10:47] LABS: Procalcitonin 0.05 ng/mL (<0.5)
== END 2021-08-15 11:21 | disposition home or self-care (01) ==
PROVIDERS: Emergency Provider Emergency Medicine; PCP Registered Nurse
DX: M25.471 Effusion, right ankle (principal)
CPT/HCPCS: 36415; 73610; 80053; 84145; 84550; 85025; 99283; 99284

== ENCOUNTER → 2021-08-29 14:24 | Outpatient (CLI) | payer MEDICARE, SELFPAY ==
[2021-08-24 12:03] VITALS: BMI 19.2
[2021-08-29 15:31] LABS: Add Manual Diff / Slide Review NO; Basophils Absolute Auto 0 /uL (0-100); Basophils Percent Auto 0.3 % (0-2); Eosinophils Absolute Auto 0 /uL (0-450); Eosinophils Percent Auto 0.1 % (2-4); Hematocrit 31.6 % (36-46); Hemoglobin 10.4 g/dL (12.0-16.0); Lymphocytes Absolute Auto 600 /uL (1100-4500); Lymphocytes Percent Auto 6.9 % (25-40); Mean Corpuscular HGB Conc 32.9 % (30-36); Mean Corpuscular Hemoglobin 28.3 PG (26-34); Mean Corpuscular Volume 85.9 fL (80-100); Monocytes Absolute Auto 300 /uL (0-900); Monocytes Percent Auto 3.4 % (3-14); Neutrophils Absolute Auto 8300 /uL (1500-7000); Neutrophils Percent Auto 89.3 % (50-75); Platelet Count 479 X10^3/uL (150-400); Red Blood Cell Count 3.68 X10^6/uL (4.0-5.2); Red Cell Distribution Width 14.6 % (11.6-14.8); White Blood Cell Count 9.2 X10^3/uL (4.5-11.0)
[2021-08-29 15:52] LABS: Alanine Aminotransferase 20 IU/L (<35); Albumin 4.1 g/dL (3.5-5.0); Albumin Globulin Ratio 1.3 (1.0-2.8); Alkaline Phosphatase 96 U/L (38-126); Aspartate Aminotransferase 25 IU/L (14-36); BUN Creatinine Ratio 16.7 (6-22); Bilirubin Total 0.5 mg/dL (0.2-1.3); Blood Urea Nitrogen 17 mg/dL (7-17); Calcium 10.3 mg/dL (8.4-10.2); Carbon Dioxide 30 mmol/L (22-32); Chloride 103 mmol/L (98-107); Estimated Glomerular Filt Rate 54.1 mL/min (>60); Globulin 3.2 g/dL (1.7-4.1); Glucose 116 mg/dL (80-110); HEMOLYSIS < 15 (0-50); Potassium 4.7 mmol/L (3.4-5.1); Sodium 138 mmol/L (137-145); Total Protein 7.3 g/dL (6.3-8.2); Uric Acid 4.9 mg/dL (2.5-6.2)
[2021-08-29 17:12] LABS: Erythrocyte Sedimentation Rate 56 MM/HR (0-20)
== END ==
PROVIDERS: PCP Registered Nurse; Referring Provider Family Medicine; Visit Provider Family Medicine
DX: D64.9 Anemia, unspecified (principal); E83.52 Hypercalcemia; M25.471 Effusion, right ankle
CPT/HCPCS: 36415; 80053; 84550; 85025; 85651

== ENCOUNTER → 2021-09-13 09:43 | Outpatient (CLI) | payer MEDICARE, SELFPAY ==
[2021-08-24 12:03] VITALS: BMI 19.2
[2021-09-13 11:31] LABS: Add Manual Diff / Slide Review NO; Basophils Absolute Auto 100 /uL (0-100); Eosinophils Absolute Auto 100 /uL (0-450); Eosinophils Percent Auto 1.3 % (2-4); Hematocrit 30.8 % (36-46); Hemoglobin 10.4 g/dL (12.0-16.0); Lymphocytes Absolute Auto 1700 /uL (1100-4500); Lymphocytes Percent Auto 26.1 % (25-40); Mean Corpuscular HGB Conc 33.7 % (30-36); Mean Corpuscular Hemoglobin 28.5 PG (26-34); Mean Corpuscular Volume 84.6 fL (80-100); Monocytes Absolute Auto 600 /uL (0-900); Monocytes Percent Auto 9.4 % (3-14); Neutrophils Absolute Auto 4000 /uL (1500-7000); Neutrophils Percent Auto 62.2 % (50-75); Platelet Count 444 X10^3/uL (150-400); Red Blood Cell Count 3.64 X10^6/uL (4.0-5.2); Red Cell Distribution Width 13.8 % (11.6-14.8); White Blood Cell Count 6.4 X10^3/uL (4.5-11.0)
[2021-09-13 12:03] LABS: Alanine Aminotransferase 49 IU/L (<35); Albumin 4.1 g/dL (3.5-5.0); Albumin Globulin Ratio 1.2 (1.0-2.8); Alkaline Phosphatase 129 U/L (38-126); Aspartate Aminotransferase 44 IU/L (14-36); BUN Creatinine Ratio 14.8 (6-22); Bilirubin Total 0.6 mg/dL (0.2-1.3); Blood Urea Nitrogen 17 mg/dL (7-17); Calcium 10.1 mg/dL (8.4-10.2); Carbon Dioxide 30 mmol/L (22-32); Chloride 101 mmol/L (98-107); Estimated Glomerular Filt Rate 47.1 mL/min (>60); Globulin 3.3 g/dL (1.7-4.1); Glucose 90 mg/dL (80-110); HEMOLYSIS < 15 (0-50); Potassium 4.6 mmol/L (3.4-5.1); Sodium 135 mmol/L (137-145); Total Protein 7.4 g/dL (6.3-8.2)
[2021-09-13 12:10] LABS: Iron 69 ug/dL (37-170)
[2021-09-13 12:30] LABS: Ferritin 8 ng/mL (11-264)
[2021-09-14 08:43] LABS: Parathyroid Hormone Int 27 pg/mL (15-65)
== END ==
PROVIDERS: PCP Registered Nurse; Referring Provider Family Medicine; Visit Provider Family Medicine
DX: D64.9 Anemia, unspecified (principal); E83.52 Hypercalcemia
CPT/HCPCS: 36415; 80053; 82728; 83540; 83970; 85025

== ENCOUNTER → 2021-09-22 16:44 | Outpatient (CLI) | payer MEDICARE, SELFPAY ==
[2021-08-24 12:03] VITALS: BMI 19.2
--- NOTE | 2021-09-22 16:49 | DI.RAD.S_ITS ---
PROCEDURE: XR ANKLE LT MIN 3V INDICATIONS: left ankle pain, swelling TECHNIQUE: 3 views of the ankle were acquired. COMPARISON: [facility], CR, XR ANKLE RT MIN 3V, 08/15/2021, 9:45. FINDINGS: Bones: No fractures or dislocations. Ankle mortise is normally aligned. No suspicious bony lesions. Soft tissues: No tibiotalar joint effusion. Achilles tendon appears normal. IMPRESSION: No acute osseous abnormality. If clinically indicated follow-up radiographs in 10-14 days could be considered. MRI could also be considered. Dictated by: Sudarshan Conti M.D. on 09/23/2021 at 8:17 Approved by: Sudarshan Conti M.D. on 09/23/2021 at 8:18
--- NOTE | 2021-09-22 16:49 | DI.RAD.S_ITS ---
PROCEDURE: XR ANKLE RT MIN 3V INDICATIONS: right ankle pain, swelling TECHNIQUE: 3 views of the ankle were acquired. COMPARISON: [facility], CR, XR ANKLE RT MIN 3V, 08/15/2021, 9:45. FINDINGS: Bones: No fractures or dislocations. Ankle mortise is normally aligned. No suspicious bony lesions. Soft tissues: No tibiotalar joint effusion. Achilles tendon appears normal. IMPRESSION: No acute osseous abnormality. If clinically indicated MRI of the ankle could be considered for further evaluation. Dictated by: Sudarshan Conti M.D. on 09/23/2021 at 8:13 Approved by: Sudarshan Conti M.D. on 09/23/2021 at 8:17
[2021-09-22 18:58] LABS: Rheumatoid Factor 10.5 IU/mL (<12.0)
== END ==
PROVIDERS: PCP Registered Nurse; Referring Provider Registered Nurse; Visit Provider Registered Nurse
DX: M25.571 Pain in right ankle and joints of right foot (principal); M25.572 Pain in left ankle and joints of left foot
CPT/HCPCS: 36415; 73610; 86430

== ENCOUNTER → 2021-10-26 10:49 | Outpatient (CLI) | payer MEDICARE, SELFPAY ==
[2021-08-24 12:03] VITALS: BMI 19.2
[2021-10-26 12:11] LABS: Add Manual Diff / Slide Review NO; Basophils Absolute Auto 100 /uL (0-100); Eosinophils Absolute Auto 100 /uL (0-450); Eosinophils Percent Auto 1.4 % (2-4); Hematocrit 33.9 % (36-46); Hemoglobin 10.9 g/dL (12.0-16.0); Lymphocytes Absolute Auto 1500 /uL (1100-4500); Lymphocytes Percent Auto 23.2 % (25-40); Mean Corpuscular HGB Conc 32.1 % (30-36); Mean Corpuscular Hemoglobin 26.5 PG (26-34); Mean Corpuscular Volume 82.4 fL (80-100); Monocytes Absolute Auto 500 /uL (0-900); Monocytes Percent Auto 7.5 % (3-14); Neutrophils Absolute Auto 4400 /uL (1500-7000); Neutrophils Percent Auto 66.9 % (50-75); Platelet Count 472 X10^3/uL (150-400); Red Blood Cell Count 4.11 X10^6/uL (4.0-5.2); Red Cell Distribution Width 14.3 % (11.6-14.8); White Blood Cell Count 6.5 X10^3/uL (4.5-11.0)
[2021-10-26 12:13] LABS: Blood Urea Nitrogen 13 mg/dL (7-17); Carbon Dioxide 30 mmol/L (22-32); Chloride 105 mmol/L (98-107); Estimated Glomerular Filt Rate > 60.0 mL/min (>60); Glucose 87 mg/dL (80-110); HEMOLYSIS < 15 (0-50); Potassium 4.1 mmol/L (3.4-5.1); Sodium 140 mmol/L (137-145)
[2021-10-26 12:25] LABS: Hemoglobin A1C% w Est Avg Glu 5.4 % (4.0-6.0)
[2021-10-26 14:07] LABS: Appearance Urine UA CLEAR; Bilirubin Urine UA NEGATIVE (NEGATIVE); Color Urine UA YELLOW; Glucose Urine UA NEGATIVE (Negative); Ketones Urine UA NEGATIVE (NEGATIVE); Leukocyte Esterase Urine UA NEGATIVE (NEGATIVE); Nitrite Urine UA NEGATIVE (Negative); Occult Blood Urine UA NEGATIVE (Negative); Protein Urine UA NEGATIVE (Negative); Specific Gravity Urine UA <=1.005 (1.000-1.035); Urobilinogen Urine UA 0.2 E.U./dL (0.2)
[2021-10-26 14:13] LABS: Bacteria Urine None Seen; Culture Indicated Urine Cult Not Indicated; RBC Urine None Seen (0-5/HPF); Urine Comments Microscopic Normal; WBC Urine None Seen (0-5/HPF)
[2021-10-26 14:31] LABS: COVID19 -Nasal RAPID Negative (Negative)
== END ==
PROVIDERS: Family Medicine Sleep Medicine; PCP Family Medicine; Referring Provider Orthopaedic Surgery Foot and Ankle Surgery; Visit Provider Orthopaedic Surgery Foot and Ankle Surgery
DX: Z01.818 Encounter for other preprocedural examination (principal); R73.9 Hyperglycemia, unspecified; Z01.812 Encounter for preprocedural laboratory examination; N39.0 Urinary tract infection, site not specified; Z20.822 Contact with and (suspected) exposure to COVID-19
CPT/HCPCS: 36415; 80048; 81001; 83036; 85025; 87635; 93005; 93010; C9803

== ENCOUNTER 2021-10-30 08:20 | Observation (INO) | payer MEDICARE, SELFPAY ==
[2021-08-24 12:03] VITALS: BMI 19.2
[2021-10-28] VITALS (13 sets, daily range): BP systolic 100–153; BP diastolic 60–101; PULSE 77–93; RESP 14–17; TEMP 36.1–37.4; O2SAT 93–100
[2021-10-28] MEDS: LACTATED RINGERS 1,000 ML 42 ML IV (09:22)
--- NOTE | 2021-10-28 10:04 | PM.PREOP ---
Pre-operative Note COVID-19 COVID-19 status: Negative Criteria for continued procedure: Expected advancement of disease process, Possibility delay results in more complex future surgery or treatment and Continuing or worsening of significant or severe pain Interval Note History & Physical reviewed/Exam performed by Physician: Yes Changes to H&P: No
--- NOTE | 2021-10-28 10:05 | P.OP_ITS ---
Operative Date/Time/Diagnoses Date of procedure: 10/28/21 Time of procedure: 11:00 Pre-op diagnosis: left femoral neck fracture, osteoporosis Post-op diagnosis: same Procedure & Clinicians Procedure: left total hip arthroplasty anterior approach Same procedure as scheduled: Yes Indications: This is a 65-year-old female who has a history of injuring her left hip and had incapacitating left hip pain. X-rays showed evidence of a left femoral neck fracture. She also has severe osteoporosis has had several recent compression fractures in her back and has an appointment scheduled with Endocrinology in November. She came in with incapacitating left hip pain and she is brought the operating room for left total hip arthroplasty. Surgeon: Mary Falcon Reach Truck Operator: Manda De León Anesthesia Type: Spinal Operative Notes Findings: Left femoral neck fracture impacted, very soft bone, adequate stability Closure Type: primary Specimen(s): none sent Prosthetic devices, grafts, tissues, transplants, or devices: Falcon and Nephew 54 mm cup size 9 standard offset anthology,-3 x 36 Oxinium femoral head, neutral poly, one 20mm screw Estimated Blood Loss (mL): 250 Blood products transfused: none Procedure in detail: The patient was brought to the operating room. Patient was carefully positioned in the supine position. Time-out was performed and antibiotics were given. Anesthesia was induced. She was positioned in the on the table in order to allow hyperextension of the hip. The left lower extremity was prepped and draped in a standard sterile fashion. An anterior left hip incision was made 1 fingerbreadth lateral to the anterior superior iliac spine and extended distally towards the greater trochanter. Dissection was carried out through skin and subcutaneous tissues. Superficial hemostasis was achieved. The fascia over the tensor fascia anny was defined and incised with a knife. Two Allis clamps were used to grasp the fascia. Tensor fascia anny was retracted laterally. A gelpi retractor was placed. Dissection was carried out down along the neck. The circumflex vessels were carefully identified and cauterized with the Aqua Mantis. There was good visualization of the femoral neck. A Cobra was placed superior to the neck and the gluteus fibers were carefully stripped from that superior aspect of the capsule. A 2nd retractor was placed along the inferior aspect of the neck. The rectus insertion along the capsule was partially released. A 3rd retractor that was then gently placed over the rim of the acetabulum under the rectus. Capsule was carefully incised and released from the intertrochanteric line circumferentially superior to the mid sagittal line and inferiorly to the mid sagittal line until the lesser trochanter was palpable. A tag stitch was placed both in the superior and inferior limb of the capsular insertion. There is a hematoma in the hip capsule. Along the acetabulum capsule was also released up to the mid sagittal 12:00 position. A portion of the labrum was resected. A saw was used to perform an osteotomy at the level of the intertrochanteric line and the junction of the superior femoral neck leaving approximately 1 finger breath of residual inferior neck above the lesser trochanter. There was a fracture of the femoral neck. The saw cut was made towards the lesser trochanter from the femoral fracture A 2nd cut was made along the femoral neck at the base of the head and a napkin ring of neck was removed. Corkscrew was placed in the femoral head and the head was removed without difficulty. Retractors were then repositioned around the acetabulum. Residual labrum was resected and additional osteophytes were removed. A reamer that was 4 mm below the templated size was placed by hand in the acetabulum and it was reamed to centralize the acetabulum. It was then reamed up to 2 under the templated size and fluoroscopy was brought in to confirm the position of the reaming and depth of reaming. I reamed 1 under the anticipated size. A trial cup was placed and noted that it was appropriately sized and fluoroscopy confirmed position and depth. The component was open and inserted without difficulty fluoroscopic imaging was used to confirm that the cup had been adequately seated and was well positioned. Neutral poly liner was placed. It was further stabilized with a single screw. She had very soft acetabular bone and I was very gentle with reaming. The cup was tested and noted to be stable. Attention was then directed to the femur. The femur was gently hyperextended additional capsular release was performed as needed in order to allow adequate visualization of the proximal femur with elevation of the femur. Patient was placed in a hyperextended slightly adducted position with maximum external rotation. Box osteotome was used to check for any residual neck as well as sclerotic bone along the trochanter. [place] pepper was placed in the femur. Additional broaching was performed. Canal finder was used to determine the ali gnment of the canal and position. Size 1 broach was placed. The canal was then appropriately broached up to the templated size as long as there was adequate stability of the broach and serial advancement of the broach without excessive impingement. Specific attention was directed at avoiding varus attempting to direct the distal aspect of the broach more anteriorly and avoiding excessive anteversion. Trial reduction showed acceptable range of motion, good stability, no posterior impingement, anabaptism of leg length and appropriate lateral shuck. I also hyperflexed the hip and checked that there was no impingement anteriorly and there was good stability with flexion, adduction and internal rotation. Marcaine and Exparel were injected. The stem was placed without difficulty. Repeat trial reduction and x-ray showed acceptable overall position, length, and no evidence of the femoral fracture. Final head was placed. Wound was meticulously irrigated with normal saline. The hip was reduced and additional Exparel and Marcaine were injected. The capsule was closed with interrupted nonabsorbable sutures. The fascia of the tensor was closed with interrupted and running Vicryl. No drain was placed. Any tensor fascia anny muscle that appeared to be contused or injured which was a minimal amount was carefully resected. Capsule around the tensor was injected with Exparel and Marcaine. The skin was closed with barbed stitches for the subcutaneous tissue and skin. We also used surgical glue. The wound was dressed sterilely. Brief Betadine soak was also used and was meticulously irrigated with normal saline. Patient was transferred to recovery room in satisfactory condition. Complications: none Post-operative Condition: stable Disposition: Acute Care Plan for aftercare: The patient will be maintained on a standard total hip replacement protocol with weight bearing as tolerated and anterior hip precautions. The patient will receive Aspirin and sequential compression devices for DVT prophylaxis. The patient will be discharged home when safe for the home environment.
[2021-10-28] MEDS: CEFAZOLIN 2 GM/20 ML SYRINGE IV ×2 (11:15→19:04)
[2021-10-28] MEDS: TRANEXAMIC ACID 1,000 MG VIAL 2000 MG INJ (11:16)
--- NOTE | 2021-10-28 11:34 | SUR.OPER ---
Patient supine on padded [place] table, one arm on padded arm board at <90, other arm padded and secured with tape across patient's chest- padded with foam between chest and arm and then gel between arm and draw sheet, both legs secured in padded traction boots and positioned per surgeon, feet padded with webril and coban, padded post at patient's groin, pressure points checked and padded.
[2021-10-28] MEDS: BUPIVACAINE LIPOSOME 266 MG/20 ML VIAL INJ (11:43)
[2021-10-28] MEDS: BUPIVACAINE 0.25% (PF) 60 ML, EPINEPHrine 0.3 MG INJ (11:43)
--- NOTE | 2021-10-28 13:00 | DI.RAD.S_ITS ---
PROCEDURE: XR HIP W PEL IF DONE LT 2V INDICATIONS: LT TOTAL HIP TECHNIQUE: 7 intraoperative views of the hip were acquired. COMPARISON: [facility], CR, XR HIP W PEL IF DONE LT 2V, 10/28/2021, 13:43. FINDINGS: Intraoperative images obtained during left hip arthroplasty. IMPRESSION: Intraoperative imaging during left hip arthroplasty. Dictated by: Christ Willard M.D. on 10/28/2021 at 14:14 Approved by: Christ Willard M.D. on 10/28/2021 at 14:14
--- NOTE | 2021-10-28 16:00 | DI.RAD.S_ITS ---
PROCEDURE: XR HIP W PEL IF DONE LT 2V INDICATIONS: LEFT TOTAL HIP POST OP TECHNIQUE: AP pelvis and lateral view of the left hip acquired. COMPARISON: None. FINDINGS: Bones: Patient is status post left hip arthroplasty, with hardware components in expected positions. The hip joint appears congruent. The visualized bony structures appear intact. Soft tissues: Overlying postoperative changes are noted. No suspicious soft tissue densities. IMPRESSION: 1. Expected appearance of left hip arthroplasty. Dictated by: Christ Willard M.D. on 10/28/2021 at 14:13 Approved by: Christ Willard M.D. on 10/28/2021 at 14:13
[2021-10-28] MEDS: LACTATED RINGERS 1,000 ML 125 ML IV (16:17)
[2021-10-28] MEDS: OXYCODONE IR 5 MG TABLET 10 MG PO ×2 (16:25→20:29)
[2021-10-28] MEDS: ONDANSETRON 4 MG/2 ML INJ IV ×2 (16:46→21:28)
[2021-10-28 19:16] LABS: Vitamin D 25 Hydroxy (D3) 27.7 ng/mL (30.0-100.0)
[2021-10-28] MEDS: ASPIRIN EC 81 MG TABLET PO (20:29)
[2021-10-28] MEDS: DOCUSATE 100 MG CAPSULE PO (20:29)
[2021-10-29] MEDS: LACTATED RINGERS 1,000 ML 125 ML IV (00:49)
[2021-10-29] MEDS: ONDANSETRON 4 MG/2 ML INJ IV ×2 (01:15→08:27)
[2021-10-29] MEDS: CEFAZOLIN 2 GM/20 ML SYRINGE IV (02:29)
[2021-10-29 04:45] VITALS: BP 113/69; PULSE 87; RESP 17; TEMP 37.1; O2SAT 96
[2021-10-29] MEDS: ONDANSETRON 4 MG ODT PO (05:06)
[2021-10-29] MEDS: PANTOPRAZOLE DR 20 MG TABLET PO (05:06)
[2021-10-29] MEDS: OXYCODONE IR 5 MG TABLET PO (05:14)
[2021-10-29 07:12] LABS: Hematocrit 29.5 % (36-46); Hemoglobin 9.7 g/dL (12.0-16.0)
[2021-10-29 07:40] VITALS: BP 116/71; PULSE 82; RESP 20; TEMP 37.1; O2SAT 97
[2021-10-29] MEDS: DOCUSATE 100 MG CAPSULE PO ×2 (08:27→20:48)
[2021-10-29] MEDS: ASPIRIN EC 81 MG TABLET PO ×2 (08:27→20:48)
[2021-10-29] MEDS: OXYCODONE IR 5 MG TABLET 10 MG PO (08:27)
--- NOTE | 2021-10-29 08:37 | PM.DS.1 ---
History of Present Illness History of Present Illness Date Patient Seen: 10/29/21 Time Patient Seen: 09:00 Chief complaint: OPB $350 copay Narrative: Operative Date/Time/Diagnoses Date of procedure: 10/28/21 Time of procedure: 11:00 Pre-op diagnosis: left femoral neck fracture, osteoporosis Post-op diagnosis: same Procedure & Clinicians Procedure: left total hip arthroplasty anterior approach Same procedure as scheduled: Yes Indications: This is a 65-year-old female who has a history of injuring her left hip and had incapacitating left hip pain.? X-rays showed evidence of a left femoral neck fracture.? She also has severe osteoporosis has had several recent compression fractures in her back and has an appointment scheduled with Endocrinology in November.? She came in with incapacitating left hip pain and she is brought the operating room for left total hip arthroplasty. Surgeon: Mary Falcon Physician Practice Market Manager: Manda De León Anesthesia Type: Spinal Operative Notes Findings: Left femoral neck fracture impacted, very soft bone, adequate stability Closure Type: primary Specimen(s): none sent Prosthetic devices, grafts, tissues, transplants, or devices: Falcon and Nephew 54 mm cup size 9 standard offset anthology,-3 x 36 Oxinium femoral head, neutral poly, one 20mm screw Estimated Blood Loss (mL): 250 Blood products transfused: none Discharge Providers Provider Date of admission: 10/28/2021 Discharge Date: 10/30/21 Primary care physician: Shahid Conde DO Consults: 10/28/21 10:33 Consult to Anesthesiology Routine Comment: Consulting Provider: Anesthesiologist Reason for consultation: Regional block for post operative pain control 10/28/21 15:20 Consult to Discharge Planning Routine Comment: Consult to Physical Therapy Evaluate & Treat Comment: Physician Instructions: post op CLARA protocol Consult to Physical Therapy Evaluate & Treat Comment: left fook walker boot for calcaneous fracture Physician Instructions: Evaluate and Treat Consult to Respiratory Therapy Evaluate & Treat Comment: Physician Instructions: Evaluate and treat Discharge provider: Manda De León PA-C Summary Hospital Course Discharge Diagnosis: s/p L CLARA Hospital Course: Ms Rubio's hospital course was unremarkable. On POD# 1 she was having difficulty with pain control, but wanted to go home. She was evaluated by PT during her stay and discharged on POD# 2. She was eating and voiding without difficulty and her pain was adequately controlled with PO pain meds. Exam Vital Signs (past 8 hours): - 10/29/21 04:45 10/29/21 07:40 Temperature 98.7 F 98.8 F Pulse Rate 87 82 Respiratory Rate 17 20 Blood Pressure 113/69 116/71 Pulse Oximetry 96 97 Oxygen Delivery Method Room Air Oxygen Flow Rate 0 Narrative Exam Narrative: 4/5 strength in hip flexors, quadriceps, hamstrings on L; 5/5 strength in PF, DF, EHL. 5/5 strength in RLE. Sensation to light touch intact throughout BLE. Calves soft, compressible, nontender, and without palpable cords or masses. Aquacel dressing CDI. Objective Labs Result Diagrams: 10/29/21 06:42 Labs: Laboratory Results - last 24 hr 10/28/21 10/29/21 18:07 06:42 Hgb 9.7 L Hct 29.5 L 25-OH Vitamin D Total 27.7 L PFSH Medical History (Updated 10/29/21 @ 08:41 by Manda De León PA-C) Acute renal failure (ARF) (~2020) Adult general medical exam Bilateral ankle pain Electrolyte abnormality Lower back pain No active medical problems Osteoporosis Post-menopausal Screening for malignant neoplasm of colon Stress fracture of neck of femur (~09/2021) Surgical History (Updated 10/29/21 @ 08:27 by Manda De León PA-C) Hx of kyphoplasty Social History household members: spouse Smoking Status: Former smoker alcohol intake: former Discharge Assessment & Plan Assessment and Plan Assessment: s/p left total hip arthroplasty, anterior approach. Plan of Treatment: Discharge home. Discharge Plan Discharge Plan Patient Disposition: Home Provider Discharge Comment: May discharge in PM 10/29/2021, but most likely 10/30/2021. Does not need to be seen by ortho prior to d/c on 10/30/2021. Discharge orders & Medications Prescriptions: New aspirin 81 mg Tablet,Delayed Release (Dr/Ec) 81 mg PO BID Qty: 90 0RF docusate sodium 100 mg Capsule 100 mg PO BID PRN (Reason: constipation) Qty: 60 2RF oxycodone 5 mg Tablet 5 mg PO Q4H PRN (Reason: Pain, Moderate (4-6)) Qty: 60 0RF hydroxyzine pamoate 25 mg Capsule 25 mg PO Q4HR PRN (Reason: muscle spasm) Qty: 120 1RF Continued acetaminophen 500 mg capsule 1,000 mg PO Q6H PRN (Reason: Pain (Scale Score 1-3)) 0RF Label Comments: told to avoid after this dose... colchicine 0.6 mg tablet 0.6 mg PO BID PRN (Reason: gout) Qty: 20 0RF omeprazole 20 mg PO DAILY 0RF Follow up/Referrals: Shahid Conde DO [Primary Care Provider] - Mary Falcon MD [Physician] - As previously scheduled (Follow up with Otoniel Felder PA-C, on 11/10/2021 @ 11:10 am at [facility] in [place].) Diet/Activity/Treatments Diet: Diet as Tolerated Activity: WBAT LLE. Anterior hip precautions. Skin/Wound/Dressing Care Report to your healthcare provider any signs of infection, such as:: chills, fever, night sweats, increased pain, unusual drainage and unusual redness Dressing: May shower. Leave Aquacel dressing in place until follow up in office. No bathing or otherwise soaking incision. Call office if dressing becomes saturated inside. Visit Report/Discharge Packet Instructions: DI for Hip Replacement Stand Alone Forms: Surgery Discharge Discharge Data Primary Care Provider: Shahid Conde Attending Provider: Mary Falcon Quality VTE Deep Vein Thrombosis/Pulmonary Embolism Present on Admission: No
--- NOTE | 2021-10-29 08:38 | PM.PNPO.1 ---
Subjective Subjective Date Patient Seen: 10/29/21 Time Patient Seen: 08:38 Interval history: Complains of severe pain overnight. Has been OOB to bathroom twice since surgery; voiding without difficulty. Denies N/V. Would like to go home later today if able to get better pain control. States she is unable to take APAP or NSAIDs due to overuse and resultant increase in LFTs. Exam Vital Signs (past 8 hours): - 10/29/21 04:45 10/29/21 07:40 Temperature 98.7 F 98.8 F Pulse Rate 87 82 Respiratory Rate 17 20 Blood Pressure 113/69 116/71 Pulse Oximetry 96 97 Oxygen Delivery Method Room Air Oxygen Flow Rate 0 Narrative Exam Narrative: 3/5 left hip flexion d/t pain; 5/5 quadriceps, hamstrings, DF, PF, EHL on left. Sensation to touch intact throughout BLE. Calves soft, compressible, nontender and without palpable cords or masses. Aquacel dressing CDI. Const General: cooperative Orientation: alert, awake and oriented x3 Objective Labs Result Diagrams: 10/29/21 06:42 Labs: Laboratory Results - last 24 hr 10/28/21 10/29/21 18:07 06:42 Hgb 9.7 L Hct 29.5 L 25-OH Vitamin D Total 27.7 L PFSH Medical History (Updated 10/29/21 @ 08:41 by Manda De León PA-C) Acute renal failure (ARF) (~2020) Adult general medical exam Bilateral ankle pain Electrolyte abnormality Lower back pain No active medical problems Osteoporosis Post-menopausal Screening for malignant neoplasm of colon Stress fracture of neck of femur (~09/2021) Surgical History (Updated 10/29/21 @ 08:27 by Manda De León PA-C) Hx of kyphoplasty Social History household members: spouse Smoking Status: Former smoker alcohol intake: former Assessment & Plan Post-op Assessment and plan (1) Status post left hip replacement: Assessment and Plan narrative: 1) Added hydroxyzine for help with pain control. 2) PT evaluate and mobilize. Anterior hip precautions. 3) ASA and SCDs for VTE prophylaxis. 4) Possible d/c later today if adequate pain control and safe per PT, but more likely d/c home tomorrow. (2) Osteoporosis: Assessment and Plan narrative: Pt has scheduled appt w/ nutrition director to address this. (3) Postoperative anemia due to acute blood loss: Assessment and Plan narrative: Asymptomatic at this time, no intervention needed. Postoperative Procedures: Procedures Operation Date: 10/28/21 10:45 Actual Procedure Side Surgeon p Total Hip Arthroplasty/Anterior Approach Left Mary Falcon MD Postoperative day: 1 Quality VTE Deep Vein Thrombosis/Pulmonary Embolism Present on Admission: No
[2021-10-29 09:52] VITALS: O2SAT 97
--- NOTE | 2021-10-29 11:40 | PT.IIE ---
Current Diagnoses Acute posthemorrhagic anemia (10/28/21) Pain in left hip (10/28/21) Age-related osteoporosis without current pathological fracture (10/28/21) Fracture of unspecified part of neck of left femur, initial encounter for closed fracture (10/28/21) Presence of left artificial hip joint (10/28/21) Surgery Performed Operation Date: 10/28/21 10:45 Actual Procedures p Total Hip Arthroplasty/Anterior Approach(Left) - Mary Falcon MD Medical History (Last Reviewed 10/28/21 @ 09:12 by Tejal Palma RN) Acute renal failure (ARF) (~2020) Adult general medical exam Bilateral ankle pain Electrolyte abnormality Lower back pain No active medical problems Osteoporosis Post-menopausal Screening for malignant neoplasm of colon Stress fracture of neck of femur (~09/2021) Physical Therapy Inpatient Evaluation/Re-Eval M1 PT/OT-IP Prior Functional Status Start: 10/29/21 12:29 Freq: NEEDED Status: Active Protocol: Document 10/29/21 12:29 [facility] (Rec: 10/29/21 12:47 [facility] [id number]) Medical Review Prior Functional Status Medical History Reviewed Yes Diet/Fluid Consistency Regular Communication WNL Mobility and Gait pt is typically indep w/o AD but Activities of Daily Living and IADL's indep w/ADLs and w/cooking and cleaning. Pt also typically manages horses and rides horses. Has not since had lumbar sx in Jul then gout in Aug then this fx 4 weeks ago when was on it engineer and pushed hard to get something on mower to move. Only saw MD more recently but until then was using cane or crutches. Pt reprots fx of heel and hip and MD wants her in a boot, but nothing found in chart re: this. Pt has not gone to ortho office as she was initially instructed to get fitted for boot. Social History Household Members spouse Living Arrangements House Number of Floors (Floors) One Floor Number of Stairs To Enter/Railing? 1 small step to enter over threshold Home Environment Standard Height Toilet,Tub/ Shower Home Equipment Straight Cane,Crutches Additional Social History Comment Lives on [address]. can help M2 PT-IP Current Condition Start: 10/29/21 12:29 Freq: NEEDED Status: Active Protocol: Document 10/29/21 12:29 [facility] (Rec: 10/29/21 12:47 [facility] [id number]) Physical Therapy Current Condition Current Condition Evaluation Date 10/29/21 Treatment Diagnosis L ant CLARA after L femoral neck fx Onset Date 10/28/21 M3 PT-IP Subjective Start: 10/29/21 12:29 Freq: NEEDED Status: Active Protocol: Document 10/29/21 12:29 [facility] (Rec: 10/29/21 12:47 [facility] [id number]) Subjective Physical Therapy Visit Type Type Initial Evaluation Visit Start Time 10:45 Visit Stop Time 11:38 Total Visit Minutes 53 Number of GRINDER OPERATOR EXTERNAL TOOL Visits 0 Physical Therapy Visit Comments Patient Comments I have to go to the bathroom pretty bad Pt reports she is worried about going home if she is nauseus. Patient Goals Go home today or tomorrow Therapy Pain Assessment Pain When Pain Assessed During Mobility Pain Present Pain Present Pain Reported Location left hip/thigh Intensity 5 Pain Management Techniques Apply Cold,Re-positioning M4 PT-IP Mobility and Gait Start: 10/29/21 12:29 Freq: NEEDED Status: Active Protocol: Document 10/29/21 12:29 [facility] (Rec: 10/29/21 12:47 [facility] [id number]) PT-Bed Mobility Assessment Supine to Sit Supine to Sit Standby Assistance,Head of Bed Elevated Scooting Scooting to Edge of Bed Independent PT-Transfer Assessment Sit to and From Stand Sit to and from Stand Contact Guard Assistance Equipment Transfer Assistive Device Gait Belt,Front Wheeled Walker Orthotic/Prosthetic Devices or Brace: No Transfers Transfer Destination Bedside Commode Transfer Technique Stand Step Pivot Transfer Ability Level of Assist Contact Guard Assistance Comments Mobility Comments supine to sit w/HOB elevated SBA. CGA fro transfer to [facility] and pt was indep w/wiping. Pt then stood CGA to FWW then amb 50ft in room CGA then sat in chair CGA with FWW. Pt then amb in hallway CGA with FWW then was left in chair upon return to room w/call light in reach. Gait Assessment Gait Gait Assistance Required: Contact Guard Assist Distance (Feet) 150 Able to Maintain Weight Bearing Status Yes During Gait Assistive Devices Assistive Device Gait Belt,Front Wheeled Walker Orthotic/Prosthetic Devices or Brace: No Gait Deviations General Gait Pattern Antalgic,Decreased Stride Length,Flexed Trunk Factors Limiting Gait Function Factors Limiting Gait Function Decreased Activity Tolerance, Decreased Strength,Limited Range of Motion,Pain Stair Climbing Assessment Comments Stair Climbing Comments n/t PT-Balance Assessment Sitting Balance and Reactions Static Sitting Balance Ability Normal Dynamic Sitting Balance Ability Normal Standing Balance and Reactions Static Standing Balance Ability Good Dynamic Standing Balance Ability Fair Device Used FWW M5 PT-IP Objective Assessments Start: 10/29/21 12:29 Freq: NEEDED Status: Active Protocol: Document 10/29/21 12:29 [facility] (Rec: 10/29/21 12:47 [facility] [id number]) Orientation Orientation/Cognition Level of Alertness Alert Language Function Ability No Deficits Noted Safety Awareness Understands Safety Issues Memory Description No Deficits Noted Gross Range of Motion Upper Extremity ROM Assessment Within Functional Limits Lower Extremity ROM Assessment Left Impaired Strength Upper Extremity Strength Assessment Within Functional Limits Lower Extremity Strength Assessment Left Impaired Hip 3/5 grossly L Knee 4-/5 L M6 PT-IP Treatment Start: 10/29/21 12:29 Freq: NEEDED Status: Active Protocol: Document 10/29/21 12:29 [facility] (Rec: 10/29/21 12:47 [facility] [id number]) Physical Therapy Treatment Education Education Provided Precautions,Weight Bearing Status,Post-Op Packet,Safety Other Treatments Other Treatment Performed edu to pt re: needing FWW vs crutches & discussed getting set up for OP PT, edu to get bath chair and riser fo toilet to help w/mobility, edu to pt to discuss w/MD re: boot as there is nothing in chart re: it here M7 PT-IP Assessment and Plan Start: 10/29/21 12:29 Freq: NEEDED Status: Active Protocol: Document 10/29/21 12:29 [facility] (Rec: 10/29/21 12:47 [facility] [id number]) PT Summary Assessment and Plan Potential Rehabilitation Potential Good Status of Condition at Evaluation Evolving Summary Impairments Pain,ROM,Strength,Balance,Bed Mobility,Transfers,Gait, Activity Tolerance Assessment Summary Pt presents day 1 s/p L ant CLARA after L femoral neck fracture 4 weeks ago. She is very motivated to get back home and active again. She did well with PT with mobility and BP WNL (112/78) after activity, but pt is concerned about nausea and emisis from earlier. She does not have appropriate equipment at home yet and was instructed to call around to find commode and shower chair and will need to DC w/FWW. She would benefit from PT to cont to work on gait, CLARA exercises and education for DC, and overall mobility while following precautions. Goals Bed Mobility Goal Standby Assistance Transfer Goal Standby Assistance Gait Goal Standby Assistance,Front Wheel Walker Gait Distance 150ft Other Goals up/down 1 step w/ walker to get into threshold of home SBA Days to Meet Goals 5 Frequency of Treatment Frequency Of Treatment Twice a Day Treatment Plan Physical Therapy Treatment Plan Bed Mobility Training,Transfer Training,Gait Training, Therapeutic Exercise,Balance Retraining,Post Op Education, Discharge Planning,Hot or Cold Pack,Neuromuscular Re-ed, Manual Therapy Precautions Anterior Hip Precautions No Hip Extension,No Hip External Rotation Weight Bearing Status Weight Bearing Status Weight Bear as Tolerated Recommendations To Nursing Amount of Assist Needed 1 Person Assist Discharge Recommendations PT Discharge Recommendations Home with Assistance, Outpatient PT Equipment Needed for Home Before Needs FWW, encouraged to get a Discharge toilet riser or BSC for over toilet & shower chair Transportation Needs at Discharge Private Vehicle
[2021-10-29] MEDS: hydrOXYzine pamoate 25 MG CAPSULE PO (12:43)
--- NOTE | 2021-10-29 14:00 | PT.IPTN ---
Current Diagnoses Acute posthemorrhagic anemia (10/28/21) Pain in left hip (10/28/21) Age-related osteoporosis without current pathological fracture (10/28/21) Fracture of unspecified part of neck of left femur, initial encounter for closed fracture (10/28/21) Presence of left artificial hip joint (10/28/21) Surgery Performed Operation Date: 10/28/21 10:45 Actual Procedures p Total Hip Arthroplasty/Anterior Approach(Left) - Mary Falcon MD Physical Therapy Treatment Note M2 PT-IP Current Condition Start: 10/29/21 12:29 Freq: NEEDED Status: Active Protocol: Document 10/29/21 12:29 [facility] (Rec: 10/29/21 12:47 [facility] [id number]) Physical Therapy Current Condition Current Condition Evaluation Date 10/29/21 Treatment Diagnosis L ant CLARA after L femoral neck fx Onset Date 10/28/21 M3 PT-IP Subjective Start: 10/29/21 12:29 Freq: NEEDED Status: Active Protocol: Document 10/29/21 14:00 [facility] (Rec: 10/29/21 17:32 [facility] [id number]) Subjective Physical Therapy Visit Type Type Treatment Note Visit Start Time 14:00 Visit Stop Time 14:43 Total Visit Minutes 43 Number of TUMBLER PLATER Visits 0 Physical Therapy Visit Comments Patient Comments pt is agreeable to do PT Therapy Pain Assessment Pain When Pain Assessed At Rest Pain Present Pain Present Pain Reported Location left hip/thigh Intensity 6 Scale Used Numeric (0 - 10) Pain Management Techniques Apply Cold,Distraction, Modification of Treatment,Re- positioning,Timing of Activity with Medications M4 PT-IP Mobility and Gait Start: 10/29/21 12:29 Freq: NEEDED Status: Active Protocol: Document 10/29/21 14:00 [facility] (Rec: 10/29/21 17:32 AB [id number]) PT-Bed Mobility Assessment Supine to Sit Supine to Sit Minimal Assistance Sit to Supine Sit to Supine Minimal Assistance PT-Transfer Assessment Sit to and From Stand Sit to and from Stand Minimal Assistance,1 Person Assistance,Use of Upper Extremities Equipment Transfer Assistive Device Gait Belt,Front Wheeled Walker Orthotic/Prosthetic Devices or Brace: Yes Comments Mobility Comments Received order for LLE walker boot. apparently, per pt, she also had a calcaneus fx when whe had her hip fx. stated that she was able to get a knee brace but not a walker boot. per doctor's order pt is WBAT on LLE. pt fitting with a walker boot and pt signed paper. pt also does not have a FWW to use for home and wants one dispensed before she goes home. will process. pt completed supine to sit min A and cues. pt able to sit on EOB SBA. assisted with butting walker boot on and educated pt on how to nohemy. assisted with R shoe as well. pt asked if walker boot is necessary as she does not have any pain on her ankle or L foot. informed pt regarding doctor's order but can f/u with her doctor if she is not able to tolerate her walker boot. Pt understood. pt completed sit to stand min A and ambulated in room using FWW mod A and cues. pt has difficulty with LLE elevation and stated that boot is heavy. cued to increase elevation. pt only was able to ambulate in room ~ 15 ft using FWW min to mod A and cues and wants to go back to bed. c/o just feeling tired and increase hip pain. completed sit to supine min A and cues. call light and table placed within reach. caregiver training set up and pt stated that she will call her spouse to come in for training at 9 am since they have to catch a ferry back to [facility]. Gait Assessment Gait Gait Assistance Required: Minimum Assistance,Moderate Assistance,1 Person Assist Distance (Feet) 15 Able to Maintain Weight Bearing Status Yes During Gait Assistive Devices Assistive Device Gait Belt,Front Wheeled Walker Orthotic/Prosthetic Devices or Brace: No Gait Deviations General Gait Pattern Antalgic,Decreased Stride Length,Decreased Feet Clearance,Step-to Gait Factors Limiting Gait Function Factors Limiting Gait Function Decreased Activity Tolerance, Decreased Strength,Limited Range of Motion,Pain,Poor Balance,Poor Safety Awareness M5 PT-IP Objective Assessments Start: 10/29/21 12:29 Freq: NEEDED Status: Active Protocol: Document 10/29/21 12:29 [facility] (Rec: 10/29/21 12:47 [facility] [id number]) Orientation Orientation/Cognition Level of Alertness Alert Language Function Ability No Deficits Noted Safety Awareness Understands Safety Issues Memory Description No Deficits Noted Gross Range of Motion Upper Extremity ROM Assessment Within Functional Limits Lower Extremity ROM Assessment Left Impaired Strength Upper Extremity Strength Assessment Within Functional Limits Lower Extremity Strength Assessment Left Impaired Hip 3/5 grossly L Knee 4-/5 L M6 PT-IP Treatment Start: 10/29/21 12:29 Freq: NEEDED Status: Active Protocol: Document 10/29/21 14:00 [facility] (Rec: 10/29/21 17:32 AB [id number]) Physical Therapy Treatment Education Education Provided Precautions,Weight Bearing Status,Safety M7 PT-IP Assessment and Plan Start: 10/29/21 12:29 Freq: NEEDED Status: Active Protocol: Document 10/29/21 14:00 [facility] (Rec: 10/29/21 17:32 AB [id number]) PT Summary Assessment and Plan Potential Rehabilitation Potential Good Summary Impairments Pain,ROM,Strength,Balance, Coordination,Sensation,Tone, Cognition,Bed Mobility, Transfers,Gait,Activity Tolerance Progress Towards Goals Slow Progress due to Pain,Slow Progress due to Activity Tolerance Assessment Summary pt requiring min to mod A with ambulation using FWW and was not able to tolerate much activity with c/o nausea and increase pain. caregiver training set up for tomorrow at 9 am and will continue to assess progress. Goals Bed Mobility Goal Standby Assistance Transfer Goal Standby Assistance,Front Wheeled Walker Gait Goal Standby Assistance,Front Wheel Walker Gait Distance 150ft Other Goals up/down 1 step w/ walker to get into threshold of home SBA Days to Meet Goals 5 Frequency of Treatment Frequency Of Treatment Twice a Day Treatment Plan Physical Therapy Treatment Plan Bed Mobility Training,Transfer Training,Gait Training, Therapeutic Exercise,Balance Retraining,Post Op Education, Discharge Planning,Hot or Cold Pack,Neuromuscular Re-ed, Manual Therapy Precautions Anterior Hip Precautions No Hip Extension,No Hip External Rotation Weight Bearing Status Weight Bearing Status Weight Bear as Tolerated Allowed Weight Bearing Amount (enter % LLE WBAT or #) (%) Recommendations To Nursing Amount of Assist Needed 1 Person Assist Discharge Recommendations PT Discharge Recommendations Home with Assistance, Outpatient PT Transportation Needs at Discharge Private Vehicle
[2021-10-29 16:10] VITALS: BP 128/73; PULSE 89; RESP 18; TEMP 36.3; O2SAT 97
[2021-10-29] MEDS: HYDROMORPHONE 2 MG TABLET PO ×2 (16:11→20:48)
--- NOTE | 2021-10-29 16:11 | CM.DANOTE ---
Discharge Assessment Note: Patient is 65yo female admitted post surgical procedure for L Hip arthroplasty. Assigned provider is Mary Falcon. Patient is anticipated to discharge home to follow up with O/P PT on 10/30. Patient reported having trouble with pain management as narcotic medications were seen as causing acid reflux concerns so medications have been switched; patient states pain is not well managed at this point. Patient resides at home with her . 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 Patient reported she has difficulty with not being able to manage the animals herself. Patient reports she is expecting a FWW to be provided prior to discharge they are just waiting on order from doctor for this. Patient is anticipating participating in PT at Ortho but does not yet have any appts scheduled. Patient has no SNF or HH history, does not use O2 at home, no dialysis or IV therapies are occurring. PCP: Shahid Conde INS: [facility] Plan: patient is anticipated to discharge home with DME provided at hospital to participate in OP PT, spouse to provide transportation via POV. parts driver will continue to follow patient throughout clinical course of admission to watch for discharge planning needs. Sim Diaz [facility] Discharge Planning/Care Management CM Discharge Assessment Start: 10/29/21 16:07 Freq: Status: Active Protocol: Document 10/29/21 16:07 AMADEO (Rec: 10/29/21 16:10 AMADEO [id number]) Discharge Planning Assessment Assigned Early Childhood Teacher Assistant Sim Diaz [facility] DPOA/Assigned Designee Name [place] Contact Information [phone] Advance Directives? No Advance Directives on File No History Provided By Patient,Medical Record Has Patient been admitted in last 30 No days? Prior Living Arrangements House Household Members spouse Type of transporation used prior to Drives own vehicle admit Comment fully independent, active with horses and farm activities. Independent with ADL's Yes Is patient alert and oriented? Yes Caregiver for Another No Comment pt reported she is receiving FWW from hospital staff prior to dc Patient/Family Preference OP PT Therapy Comment [facility] per pt report, not yet scheduled Barriers to Discharge No Discharge Plan Home Community Services Physical Therapy Transportation Arrangement via POV Referrals Initiated None needed Whiteboard Updated in Patient Room with Yes name and ext. # of Early Childhood Teacher Assistant Review Status In Process Next Review Type Continued Stay Review Pre-Anesthesia Assessment Start: 10/27/21 14:31 Freq: Status: Complete Protocol: Document 10/27/21 14:31 CAB (Rec: 10/27/21 14:37 CAB [id number]) Pre-Anesthesia Assessment PAC Comment Pt placed on surgery schedule for 10/28/21 on 10/27/21, unable to do PAC phone assess, chart review only. Patient Information Reviewed Via Chart Review Diagnostic Results BMP/CMP,CBC,EKG Comment Labs/ECG @ 10/26/21, COVID screen @ 10/26/21 Negative Primary Care Provider Patrick Daley Seen Specialist in Last 12 Months Yes Specialist Seen Orthopedist Primary Language Bengali Preferred Language Bengali Cloud Systems Administrator Required No Height 167.64 cm Weight 56.245 kg Body Mass Index (BMI) 20.0 Barriers to Learning None Anesthesia Review Requested No Production Potter No alcohol intake current alcohol intake frequency holidays/special occasions only Smoking Status Never smoker Substance Use Type does not use Pain Present Pain Reported Musculoskeletal Symptoms Abnormal Gait,Difficulty Walking,Joint Pain,Limited Range of Motion History of Falling (Recent or History of No ) Patient is completely paralyzed or No completely immobile Mental Status Oriented to own ability Is patient on oxygen? No Does patient have VALENTIN/SOB No Hx Sleep Apnea No Currently Taking a Beta Sohan No Hx Chest Pain No Hx SOB No Hx Syncope or Dizziness No Anti-Coagulant Therapy No Has a Tunnel Miner No Cardiac Testing No Hx Pacemaker/ICD No Pacemaker Rep Required? 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 Yes: / Marital Status Lives With spouse Patient Discharge Plan Description Return Home Do You Have Any Spiritual Beliefs That No May Affect Your HC Choices? Do You Have Any Cultural Practices That No May Affect Your HC Choices? Emergency Contact Name Alejandro Rubio Emergency Contact Advance Directives? No Advance Directives on File No Power of Filler Shaker No
[2021-10-29 20:17] VITALS: BP 113/73; PULSE 103; RESP 16; TEMP 36.8; O2SAT 95
[2021-10-30] MEDS: HYDROMORPHONE 2 MG TABLET PO ×4 (00:10→09:03)
[2021-10-30 00:31] VITALS: BP 115/63; PULSE 84; RESP 18; TEMP 37; O2SAT 93
[2021-10-30 04:51] VITALS: BP 111/70; PULSE 91; RESP 15; TEMP 37.1; O2SAT 94
[2021-10-30] MEDS: PANTOPRAZOLE DR 20 MG TABLET PO (06:16)
[2021-10-30 07:30] VITALS: BP 112/67; PULSE 81; RESP 20; TEMP 35.9; O2SAT 98
[2021-10-30] MEDS: hydrOXYzine pamoate 25 MG CAPSULE PO (09:03)
[2021-10-30] MEDS: DOCUSATE 100 MG CAPSULE PO (09:03)
[2021-10-30] MEDS: ASPIRIN EC 81 MG TABLET PO (09:03)
--- NOTE | 2021-10-30 10:40 | PT.IPTN ---
Current Diagnoses Acute posthemorrhagic anemia (10/30/21) Pain in left hip (10/30/21) Age-related osteoporosis without current pathological fracture (10/30/21) Fracture of unspecified part of neck of left femur, initial encounter for closed fracture (10/30/21) Presence of left artificial hip joint (10/30/21) Surgery Performed Operation Date: 10/28/21 10:45 Actual Procedures p Total Hip Arthroplasty/Anterior Approach(Left) - Mary Falcon MD Physical Therapy Treatment Note M2 PT-IP Current Condition Start: 10/29/21 12:29 Freq: NEEDED Status: Active Protocol: Document 10/29/21 12:29 [facility] (Rec: 10/29/21 12:47 [facility] [id number]) Physical Therapy Current Condition Current Condition Evaluation Date 10/29/21 Treatment Diagnosis L ant CLARA after L femoral neck fx Onset Date 10/28/21 M3 PT-IP Subjective Start: 10/29/21 12:29 Freq: NEEDED Status: Active Protocol: Document 10/30/21 09:36 BC (Rec: 10/30/21 09:47 BC [id number]) Subjective Physical Therapy Visit Type Type Treatment Note Visit Start Time 09:00 Visit Stop Time 09:35 Total Visit Minutes 32 Notes Spouse present for caregiver training Physical Therapy Visit Comments Patient Comments Pt states she is eager to get home. She feels like the walking boot is very heavy. Patient Goals D/C today Therapy Pain Assessment Pain When Pain Assessed During Mobility Pain Present Pain Present Pain Reported Location left hip/thigh Scale Used Numeric (0 - 10) Description Aching Pain Management Techniques Apply Cold,Timing of Activity with Medications M4 PT-IP Mobility and Gait Start: 10/29/21 12:29 Freq: NEEDED Status: Active Protocol: Document 10/30/21 09:36 BC (Rec: 10/30/21 09:47 BC [id number]) PT-Bed Mobility Assessment Supine to Sit Supine to Sit Minimal Assistance Sit to Supine Sit to Supine Minimal Assistance Scooting Scooting to Edge of Bed Standby Assistance Scooting Up and Down in Bed Standby Assistance PT-Transfer Assessment Sit to and From Stand Sit to and from Stand Standby Assistance Equipment Transfer Assistive Device Gait Belt,Front Wheeled Walker Transfers Transfer Destination Bed Transfer Technique Stand Pivot Transfer Ability Level of Assist Standby Assistance Comments Mobility Comments Pt requiring min A for assist of LLE on/off bed. Otherwise transfers were SBA for safety. Gait Assessment Gait Gait Assistance Required: Standby Assistance Distance (Feet) 175 Able to Maintain Weight Bearing Status Yes During Gait Assistive Devices Assistive Device Gait Belt,Front Wheeled Walker Gait Deviations General Gait Pattern Decreased Stride Length, Decreased Feet Clearance Comments Gait Comments Step to gait pattern improving to a short step through pattern with improved fluidity . Pt states her pain improved with walking and she noted improved walking pattern. Stair Climbing Assessment Devices Stair Climbing Assistive Devices Front Wheel Walker Technique/Endurance Stair Climbing Direction Ascend and Descend Stair Climbing Technique Step to Step Comments Stair Climbing Comments Pt declined need to practice ascending/descending single step. We reviewed in detail, verbally and demo, in room to ascend with RLE and descend with LLE. Discussed how this sets up the mobilization to rely more on RLE strength vs LLE. PT-Balance Assessment Sitting Balance and Reactions Static Sitting Balance Ability Normal Dynamic Sitting Balance Ability Normal Standing Balance and Reactions Static Standing Balance Ability Good Dynamic Standing Balance Ability Good Device Used FWW M5 PT-IP Objective Assessments Start: 10/29/21 12:29 Freq: NEEDED Status: Active Protocol: Document 10/30/21 09:36 (Rec: 10/30/21 09:47 [id number]) Orientation Orientation/Cognition Level of Alertness Alert Orientation Name,Date,Day of Week,Place, Situation Gross Range of Motion Upper Extremity ROM Assessment Within Functional Limits Lower Extremity ROM Assessment Left Impaired Impairments Pt complying with anterior CLARA prec. Strength Upper Extremity Strength Assessment Within Functional Limits Lower Extremity Strength Assessment Left Impaired Comments Strength Comments hip strength grossly 3-/5 Coordination Assessment Gross Coordination Gross Coordination WNL M6 PT-IP Treatment Start: 10/29/21 12:29 Freq: NEEDED Status: Active Protocol: Document 10/30/21 09:36 (Rec: 10/30/21 09:47 [id number]) Physical Therapy Treatment Education Education Provided Precautions,Weight Bearing Status,Post-Op Packet,Safety Brace Education [place],Patient, Caregiver Other Treatments Other Treatment Performed Educated on use of FWW, opening/closing, adjusting height. Educated on use of walking boot, spouse educated on how to don/doff. Recommend she discuss with ortho in regards to how often to wear ( in house vs in community). For now she will wear consistently when she is ambulating. Reviewed tips and safety on car transfers. Educated spouse on assist for bed transfers and ascending step at home. Provided tips on positioning and support. M7 PT-IP Assessment and Plan Start: 10/29/21 12:29 Freq: NEEDED Status: Active Protocol: Document 10/30/21 09:36 BC (Rec: 10/30/21 09:47 BC [id number]) PT Summary Assessment and Plan Potential Rehabilitation Potential Excellent Summary Impairments Pain,ROM,Strength,Balance,Bed Mobility,Transfers,Activity Tolerance Progress Towards Goals Progressing Toward Goals Assessment Summary Pt recalls her hip precautions . Spouse present and participating in education. All questions regarding PT were answered. She demonstrated safe mobility/ transfers for d/c home with continued spouse support. Recommended she continue with printed ther ex at home and walking short household distance or exercise every 1-2 hrs. Goals Bed Mobility Goal Standby Assistance Transfer Goal Standby Assistance,Front Wheeled Walker Gait Goal Standby Assistance,Front Wheel Walker Gait Distance 150ft Other Goals up/down 1 step w/ walker to get into threshold of home SBA Days to Meet Goals 5 Frequency of Treatment Frequency Of Treatment Twice a Day Treatment Plan Physical Therapy Treatment Plan Bed Mobility Training,Transfer Training,Gait Training, Therapeutic Exercise,Balance Retraining,Post Op Education, Discharge Planning,Hot or Cold Pack,Neuromuscular Re-ed, Manual Therapy Precautions Anterior Hip Precautions No Hip Extension,No Hip External Rotation Brace walking boot Weight Bearing Status Weight Bearing Status Weight Bear as Tolerated Allowed Weight Bearing Amount (enter % LLE WBAT or #) (%) Recommendations To Nursing Amount of Assist Needed 1 Person Assist Discharge Recommendations PT Discharge Recommendations Home with Assistance, Outpatient PT Equipment Needed for Home Before Has FWW, encouraged to get a Discharge toilet riser or BSC for over toilet & shower chair Transportation Needs at Discharge Private Vehicle
== END 2021-10-30 10:55 | disposition home or self-care (01) ==
PROVIDERS: Admitting Provider Orthopaedic Surgery; PCP Family Medicine; Referring Provider Orthopaedic Surgery; Visit Provider Orthopaedic Surgery
PROC: (CPT 27130; principal; 2021-10-28 10:45)
DX: M80.852A Other osteoporosis with current pathological fracture, left femur, initial encounter for fracture (principal)
CPT/HCPCS: 27130; 36415; 73502; 76000; 82306; 85014; 85018; 97116; 97162; 97530; 97535; C1776; G0378; C9290; J0171; J0690; J2274; J2405; J2704

== ENCOUNTER → 2021-11-10 11:41 | Outpatient (CLI) | payer MEDICARE, SELFPAY ==
[2021-11-10 12:47] LABS: Appearance Urine UA CLOUDY; Bilirubin Urine UA NEGATIVE (NEGATIVE); Color Urine UA YELLOW; Glucose Urine UA NEGATIVE (Negative); Ketones Urine UA NEGATIVE (NEGATIVE); Leukocyte Esterase Urine UA 1+ (NEGATIVE); Nitrite Urine UA POSITIVE (Negative); Occult Blood Urine UA TRACE-LYSED (Negative); Protein Urine UA TRACE (Negative); Urobilinogen Urine UA 0.2 E.U./dL (0.2)
[2021-11-10 12:48] LABS: Bacteria Urine Many (>30); Culture Indicated Urine Specimen Cultured; RBC Urine None Seen (0-5/HPF); WBC Urine 5-10/HPF (0-5/HPF)
== END ==
PROVIDERS: PCP Family Medicine; Referring Provider Family Medicine; Visit Provider Family Medicine
DX: Z87.440 Personal history of urinary (tract) infections (principal)
CPT/HCPCS: 81001; 87077; 87086; 87186

== ENCOUNTER → 2021-12-08 09:30 | Outpatient (CLI) | payer MEDICARE, SELFPAY ==
[2021-12-08 10:40] LABS: Add Manual Diff / Slide Review NO; Basophils Absolute Auto 100 /uL (0-100); Basophils Percent Auto 0.8 % (0-2); Eosinophils Absolute Auto 0 /uL (0-450); Eosinophils Percent Auto 0.7 % (2-4); Hematocrit 31.3 % (36-46); Hemoglobin 10.2 g/dL (12.0-16.0); Lymphocytes Absolute Auto 1500 /uL (1100-4500); Lymphocytes Percent Auto 22.9 % (25-40); Mean Corpuscular HGB Conc 32.7 % (30-36); Mean Corpuscular Volume 76.5 fL (80-100); Monocytes Absolute Auto 400 /uL (0-900); Monocytes Percent Auto 5.5 % (3-14); Neutrophils Absolute Auto 4600 /uL (1500-7000); Neutrophils Percent Auto 70.1 % (50-75); Platelet Count 475 X10^3/uL (150-400); Red Blood Cell Count 4.09 X10^6/uL (4.0-5.2); Red Cell Distribution Width 15.4 % (11.6-14.8); White Blood Cell Count 6.6 X10^3/uL (4.5-11.0)
[2021-12-08 11:45] LABS: HEMOLYSIS < 15 (0-50)
[2021-12-08 11:46] LABS: Alanine Aminotransferase 36 IU/L (<35); Albumin Globulin Ratio 1.4 (1.0-2.8); Alkaline Phosphatase 110 U/L (38-126); Aspartate Aminotransferase 43 IU/L (14-36); BUN Creatinine Ratio 12.5 (6-22); Bilirubin Total 0.4 mg/dL (0.2-1.3); Blood Urea Nitrogen 10 mg/dL (7-17); Calcium 9.5 mg/dL (8.4-10.2); Carbon Dioxide 29 mmol/L (22-32); Chloride 106 mmol/L (98-107); Estimated Glomerular Filt Rate > 60 mL/min (>60); Globulin 2.9 g/dL (1.7-4.1); Glucose 82 mg/dL (80-110); HEMOLYSIS < 15 (0-50); Potassium 4.4 mmol/L (3.4-5.1); Sodium 141 mmol/L (137-145); Total Protein 6.9 g/dL (6.3-8.2); Uric Acid 3.3 mg/dL (2.5-6.2)
[2021-12-08 11:57] LABS: Total Iron Binding Capacity 371 ug/dL (265-497); Transferrin 297 mg/dL (206-381)
[2021-12-08 12:04] LABS: Vitamin D 25 Hydroxy (D3) 40.8 ng/mL (30.0-100.0)
[2021-12-08 12:22] LABS: Iron 21 ug/dL (37-170); Percent Iron Saturation 6 % (15-50)
[2021-12-08 12:23] LABS: TSH w/ Reflex to FT4 1.38 uIU/mL (0.47-4.68)
[2021-12-08 12:27] LABS: Ferritin 7 ng/mL (11-264)
[2021-12-08 12:41] LABS: Vitamin B12 548 pg/mL (239-931)
[2021-12-09 08:57] LABS: Calcium 9.5 mg/dL (8.7-10.3); Parathyroid Hormone, Intact 30 pg/mL (15-65)
== END ==
PROVIDERS: PCP Family Medicine; Referring Provider Family Medicine; Visit Provider Family Medicine
DX: E83.52 Hypercalcemia (principal); D62 Acute posthemorrhagic anemia; Z96.642 Presence of left artificial hip joint
CPT/HCPCS: 36415; 80053; 82306; 82310; 82607; 82728; 83540; 83550; 83970; 84443; 84550; 85025

== ENCOUNTER → 2022-02-06 08:04 | Outpatient (CLI) | payer MEDICARE, SELFPAY ==
[2022-02-06 09:23] LABS: Add Manual Diff / Slide Review NO; Basophils Absolute Auto 0 /uL (0-100); Basophils Percent Auto 0.9 % (0-2); Eosinophils Absolute Auto 100 /uL (0-450); Eosinophils Percent Auto 1.1 % (2-4); Hematocrit 37.9 % (36-46); Hemoglobin 12.3 g/dL (12.0-16.0); Lymphocytes Absolute Auto 1300 /uL (1100-4500); Lymphocytes Percent Auto 25.3 % (25-40); Mean Corpuscular HGB Conc 32.6 % (30-36); Mean Corpuscular Hemoglobin 26.1 PG (26-34); Mean Corpuscular Volume 80.1 fL (80-100); Monocytes Absolute Auto 400 /uL (0-900); Monocytes Percent Auto 7.3 % (3-14); Neutrophils Absolute Auto 3300 /uL (1500-7000); Neutrophils Percent Auto 65.4 % (50-75); Platelet Count 377 X10^3/uL (150-400); Red Blood Cell Count 4.73 X10^6/uL (4.0-5.2); Red Cell Distribution Width 19.5 % (11.6-14.8)
[2022-02-06 09:29] LABS: HEMOLYSIS < 15 (0-50); Iron 48 ug/dL (37-170)
[2022-02-06 09:42] LABS: Percent Iron Saturation 13 % (15-50); Total Iron Binding Capacity 368 ug/dL (265-497); Transferrin 312 mg/dL (206-381)
== END ==
PROVIDERS: PCP Family Medicine; Referring Provider Family Medicine; Visit Provider Family Medicine
DX: D64.9 Anemia, unspecified (principal); D62 Acute posthemorrhagic anemia; D50.9 Iron deficiency anemia, unspecified
CPT/HCPCS: 36415; 83540; 83550; 85025

== ENCOUNTER → 2022-02-18 08:12 | Outpatient (CLI) | payer MEDICARE, SELFPAY ==
--- NOTE | 2022-02-18 08:14 | DI.MRI.S_ITS ---
PROCEDURE: MR LUMBAR SPINE WO CON INDICATIONS: Persistent lower back pain, history of compression fractures TECHNIQUE: Noncontrast sagittal T1 spin echo and T2 fast echo, sagittal STIR, and T2 fast spin echo through the lumbar spine. In cases with scoliosis, additional coronal T2 fast spin echo may be performed. COMPARISON: [facility], MR, MR THORACIC SPINE WO CON, 06/23/2021, 9:25. [facility], CT, CT CHEST ABD PEL WO CON, 02/24/2021, 13:40. [facility], MR, MR LUMBAR SPINE WO CON, 06/23/2021, 9:25. FINDINGS: Image quality: Excellent. Alignment and Curvature: There is normal bony alignment. Bone Marrow: Marrow is of normal overall signal. No acute vertebral body compression fractures. Again noted is a biconcave appearance of the vertebral bodies of T12 through L5, consistent with compression fractures. These do not appear changed from the previous lumbar spine MRI, and are all chronic. Most of these findings had developed between the CT from 02/24/2021 and the MRI dated 06/23/2020. Spinal Cord: Conus medullaris terminates at the L1-L2 level. Visualized cord demonstrates normal signal and size. Paraspinous Soft Tissues: No paravertebral masses. T12-L1: No canal stenosis or foraminal stenosis. L1-L2: No canal stenosis or foraminal stenosis. L2-L3: Disc bulge, epidural lipomatosis. Stable borderline canal stenosis. Facet and ligament hypertrophy. Mild bilateral foraminal narrowing. L3-L4: Disc bulge, facet and ligament hypertrophy, stable findings. Borderline canal stenosis. [id number] bilateral foraminal stenosis. L4-L5: Disc bulge. Facet hypertrophy. Mild canal stenosis. Bilateral foraminal disc bulges. There is mild right foraminal narrowing and moderate left foraminal narrowing with flattening deformity on the exiting left L4 nerve root. L5-S1: Facet hypertrophy. No canal stenosis. A small right foraminal disc protrusion contributes to moderate to severe right foraminal narrowing and right L5 foraminal nerve root impingement. IMPRESSION: 1. Numerous compression fractures are stable since June,, and are chronic. They involve T12 through L5. Differential diagnosis includes severe osteoporosis and multiple myeloma. 2. Degenerative change with multilevel facet arthropathy and mild canal stenosis. 3. Note is made of moderate left foraminal narrowing at L4-L5 and moderate to severe right foraminal narrowing at L5-S1. Dictated by: Brent Drummond M.D. on 02/21/2022 at 10:00 Approved by: Brent Drummond M.D. on 02/21/2022 at 10:09
== END ==
PROVIDERS: PCP Family Medicine; Referring Provider Family Medicine; Visit Provider Family Medicine
DX: M81.0 Age-related osteoporosis without current pathological fracture (principal); D50.8 Other iron deficiency anemias; M48.55XA Collapsed vertebra, not elsewhere classified, thoracolumbar region, initial encounter for fracture; M48.56XA Collapsed vertebra, not elsewhere classified, lumbar region, initial encounter for fracture; M47.816 Spondylosis without myelopathy or radiculopathy, lumbar region; M48.061 Spinal stenosis, lumbar region without neurogenic claudication; M48.07 Spinal stenosis, lumbosacral region
CPT/HCPCS: 72148

== ENCOUNTER 2022-08-27 11:42 | Emergency (ER) | payer MEDICARE, SELFPAY ==
[2022-08-27 12:19] VITALS: PULSE 86; RESP 18; TEMP 36.4; O2SAT 97; BMI 20.8
[2022-08-27 14:51] VITALS: PULSE 97; O2SAT 98
[2022-08-27 14:53] VITALS: BP 157/94; PULSE 92; O2SAT 95
[2022-08-27 14:54] VITALS: PULSE 89; O2SAT 99
--- NOTE | 2022-08-27 14:59 | PC.NURSE ---
Pt reports being on Forteo for 5 months, off for two weeks recently then back on it starting Sunday when symptoms started. Pt concerned because her paperwork from doctor says she should come in right away to ER so as not to go blind. Pt also recently diagnosed with fibromyalgia. Pt also reports recent fall off horse 5 days ago with bruised ribs. Did not seek care for that injury.
--- NOTE | 2022-08-27 15:48 | ED_ITS ---
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 She presents today with concerns for temporal arteritis or giant cell arteritis as described by the warning from Dr. Martinez on her for toe medication which she has been on for 5 months and took a 10 day vacation and started it back up. She denies any other symptoms related to this medication. Two days ago she was prescribed methotrexate and she has not started this. She had lab work completed at her provider's office 2 days ago and has not seen the results yet. Patient states that she was taking a vacation from [employer] for 10 days and all of her joint pain became worse so it was started back up yesterday. She is on a prednisone taper, currently 15 mg daily, has been on prednisone for 1 week. States that 9 days ago she had a mechanical fall off of her horse after a bird flew right front of it and spooked it. She had some left-sided rib at hip pain but denies shortness of breath, chest pain, weakness, denies hematuria, dysuria, urinary frequency, urgency, nausea vomiting, chills, upper respiratory infection or other complaint. Denies any range of motion or sensation deficit. She has a history of osteoporosis and denies any bony pain, shortness of breath or sequelae from her fall. Related Data Home Medications Medication Instructions Recorded Confirmed teriparatide 20 mcg/dose (600 20 mcg SUBCUT DAILY 06/23/22 06/23/22 mcg/2.4 mL) subcutaneous pen injector (Forteo) Previous Rx's Medication Instructions Recorded allopurinol 100 mg tablet 100 mg PO DAILY #90 tabs 12/08/21 ferrous gluconate 324 mg (37.5 mg 324 mg PO DAILY #90 tabs 07/31/22 iron) tablet diclofenac sodium 1 % topical gel 2 g topical QID #100 grams 08/27/22 hydrocodone 5 mg-acetaminophen 325 1 tab PO TID PRN pain #10 tabs 08/27/22 mg tablet lidocaine 5 % topical patch 1 patch topical DAILY #15 ea 08/27/22 Allergies Allergy/AdvReac Type Severity Reaction Status Date / Time acetaminophen AdvReac Unknown Verified 06/23/22 08:08 NSAIDS (Non-Steroidal AdvReac Verified 06/23/22 08:08 Anti-Inflamma Review of Systems <MICHAEL Alejandra - Last Filed: 08/27/22 16:37> Review of Systems ROS Unobtainable: All systems reviewed & are unremarkable except as noted in HPI and below Patient History <MICHAEL Alejandra - Last Filed: 08/27/22 16:37> Medical History Acute renal failure (ARF) (~2020) Adult general medical exam Bilateral ankle pain Electrolyte abnormality Iron deficiency anemia Lower back pain No active medical problems Osteoporosis Osteoporosis Post-menopausal Screening for malignant neoplasm of colon Skin tag Stress fracture of neck of femur (~09/2021) Surgical History Hx of kyphoplasty Social History household members: spouse Smoking Status: Former smoker alcohol intake: former Smoking Status: Former smoker alcohol intake frequency: holidays/special occasions only Substance Use Type: does not use Exam <MICHAEL Alejandra - Last Filed: 08/27/22 16:37> Narrative Exam Narrative: Reviewed vitals signs and nursing notes. General: cooperative, comfortable, in no acute distress, well groomed, HEENT: symmetrical facial expressions, moist mucous membranes, EOMI bilaterally, without asymmetrical movement, without edema, erythema, tenderness over bilateral temporal regions, PERRLA bilaterally, no tenderness with pressure over bilateral TMJs, she is able to open and close her jaw without clicking, popping or range of motion deficit. Cardiovascular: regular rate and rhythm, no peripheral edema, warm extremities Respiratory: normal effort, able to speak in complete sentences, without wheezing, stridor, or abnormal breath sounds. No retractions or tachypnea. GI: abdomen soft, nontender to palpation, nondistended, without masses, rebound tenderness or exquisite tenderness with exam. MSK: moves all extremities, neurovascularly intact, no weakness, normal tone Skin: brisk capillary refill, without pallor or erythema Neuro: normal speech and cognition, A&O x3, ambulatory, clear speech Psych: mental status is grossly normal, congruent mood, normal affect, anxious but pleasant and talkative Initial Vital Signs Initial Vital Signs: Vital Signs Temperature 97.6 F 08/27/22 12:19 Pulse Rate 86 08/27/22 12:19 Respiratory Rate 18 08/27/22 12:19 Pulse Oximetry 97 08/27/22 12:19 Oxygen Delivery Method 08/27/22 12:19 <Dia Zhong MD - Last Filed: 08/27/22 18:57> Initial Vital Signs Initial Vital Signs: Vital Signs Temperature 97.6 F 08/27/22 12:19 Pulse Rate 86 08/27/22 12:19 Respiratory Rate 18 08/27/22 12:19 Pulse Oximetry 97 08/27/22 12:19 Oxygen Delivery Method 08/27/22 12:19 Course <MICHAEL Alejandra - Last Filed: 08/27/22 16:37> Orders Ordered: Discontinued Medications Acetaminophen (Acetaminophen 325 Mg Tablet) 975 mg PO NOW ONE Stop: 08/27/22 15:48 Last Admin: 08/27/22 15:55 Dose: 975 mg Documented By: YANELI Ketorolac Tromethamine (Ketorolac 30 Mg/Ml Vial) 15 mg IM NOW ONE Stop: 08/27/22 15:48 Last Admin: 08/27/22 15:55 Dose: 15 mg Documented By: YANELI Prednisone (Prednisone 20 Mg Tablet) 20 mg PO NOW ONE Stop: 08/27/22 15:48 Last Admin: 08/27/22 15:55 Dose: 20 mg Documented By: YANELI Vital Signs Vital signs: Vital Signs - 8 hr 08/27/22 12:19 08/27/22 14:51 08/27/22 14:53 Temperature 97.6 F Pulse Rate 86 97 H Respiratory Rate 18 Blood Pressure 157/94 H Pulse Oximetry 97 98 Oxygen Delivery Method Room Air 08/27/22 14:53 08/27/22 14:54 08/27/22 16:05 Temperature Pulse Rate 92 H 89 Respiratory Rate Blood Pressure 147/80 H Pulse Oximetry 95 99 Oxygen Delivery Method Room Air <Dia Zhong MD - Last Filed: 08/27/22 18:57> Orders Ordered: Discontinued Medications Acetaminophen (Acetaminophen 325 Mg Tablet) 975 mg PO NOW ONE Stop: 08/27/22 15:48 Last Admin: 08/27/22 15:55 Dose: 975 mg Documented By: YANELI Ketorolac Tromethamine (Ketorolac 30 Mg/Ml Vial) 15 mg IM NOW ONE Stop: 08/27/22 15:48 Last Admin: 08/27/22 15:55 Dose: 15 mg Documented By: YANELI Prednisone (Prednisone 20 Mg Tablet) 20 mg PO NOW ONE Stop: 08/27/22 15:48 Last Admin: 08/27/22 15:55 Dose: 20 mg Documented By: YANELI Vital Signs Vital signs: Vital Signs - 8 hr 08/27/22 12:19 08/27/22 14:51 08/27/22 14:53 Temperature 97.6 F Pulse Rate 86 97 H Respiratory Rate 18 Blood Pressure 157/94 H Pulse Oximetry 97 98 Oxygen Delivery Method Room Air 08/27/22 14:53 08/27/22 14:54 08/27/22 16:05 Temperature Pulse Rate 92 H 89 Respiratory Rate Blood Pressure 147/80 H Pulse Oximetry 95 99 Oxygen Delivery Method Room Air MDM - Headache <MICHAEL Alejandra - Last Filed: 08/27/22 16:37> MDM Narrative Medical decision making narrative: This is a 66-year-old female who was recently diagnosed with polymyalgia rheumatica and fibromyalgia 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 She presents today with concerns for temporal arteritis or giant cell arteritis as described by the warning from Dr. Pastrana for her Fortua medication which she has been on for 5 months and took a 10 day vacation and started it back up. Differential diagnoses include, but are not limited to: Acute flare of polymyalgia rheumatica and fibromyalgia, osteoarthritis, giant cell arteritis or adverse drug reaction, Course of Care: When I assessed the patient, she does not have any concerning symptoms of giant cell arteritis, she is without tenderness over temporal region, erythema, all of her lab work including ESR and CRP were drawn 2 days ago and she is following up with Dr. Pastrana, her strawhat blocking operator tomorrow. She has not started her methotrexate yet and this was prescribed 2 days ago because the pharmacy did not have this medication in stock. She is encouraged to start this tonight at dose recommended, 3 tabs tonight and 3 tabs tomorrow morning. She is on a prednisone taper at 15 mg daily, states that she took 5 mg this morning, I will give her 20 mg now to treat her acute flare, IM Toradol, and Tylenol for pain as she is driving and can not take an opiate before driving herself to the pharmacy. She is taking the [place] back to [facility], she will follow-up with Dr. Pastrana tomorrow. A prescription of hydrocodone was provided for pain control in addition to Tylenol and other medications at home. She has topical agents that are helpful. Low suspicion for giant cell arteritis, this is most likely a flare of the polymyalgia rheumatica. She is nontoxic appearing, without recent fever illness. Patient's symptoms improved over duration of stay with above-stated therapies. MIPS: This encounter doesn't have any diagnosis associated with MIPS criteria. Social determinants of health that may impact treatment or disposition: none Vital Signs: I, the ED provider, reviewed the patient?s vital signs, past medical records and encounters if available, and nursing notes. I have spoken with the patient/family and discussed today?s findings whom verbalize understanding. Counseling was provided regarding the diagnosis and prognosis, and specific details were provided for the plan of care. Questions are addressed and there is agreement with the plan and for follow-up. Patient is appropriate for outpatient management. Portions of this chart have been created with [employer] voice recognition software. Occasional wrong word or sound alike substitutions may have occurred due to the inherent limitations of this software. I, MICHAEL Gan, personally performed the services described in the documentation, and it accurately records my words and actions. I collaborated with the ED attending physician for KENIA level 2, 3, and some level 4s as needed Electronically signed by: MICHAEL Gan Discharge Plan Departure Patient Disposition: Home Clinical Impression: Polyarthritis rheumatica, TMJ arthralgia, Fibromyalgia Instructions: Polymyalgia Rheumatica, Fibromyalgia, DI for Temporomandibular Disorder Activity Restrictions/Additional Instructions: *You have been diagnosed with [polymyalgia rheumatica, fibromyalgia, and TMJ pain likely related to these complications. Please start your methotrexate as scheduled, 1st dose tonight, 2nd dose in the morning. No more prednisone today. Please use Tylenol, hydrocodone, or other medications as necessary for pain control, schedule follow-up with Dr. Pastrana in 1-2 days for recheck. Please stay hydrated, void frequently, return for worsening symptoms. *What to do: *Please continue to take your regular medications as directed. x New medication prescriptions sent to your pharmacy: [facility] ] [ ] New medication written as a paper prescription [ ] No new medications given *Please follow up with your primary care provider in 2-3 days, call for an appointment. Let them know you were seen in the Emergency Department and that we asked that you be seen for follow-up. We will electronically transmit a record of today's note if your PCP is in our system *If you do not have a primary care provider please contact [phone] to establish care with one of the [facility] primary care providers. *Return to Emergency Department if you should have any new, worsening, or concerning symptoms, such as [fever greater than 101F, chills, worsening pain, persistent vomiting or other bothersome symptoms]. Prescriptions: New hydrocodone-acetaminophen 5-325 mg tablet 1 tab PO TID PRN (Reason: pain) Qty: 10 0RF lidocaine 5 % adhesive patch,medicated 1 patch topical DAILY Qty: 15 0RF Rx Instructions: leave on most painful area for up to 12 hrs diclofenac sodium 1 % gel 2 g topical QID Qty: 100 0RF Rx Instructions: apply to area of pain up to 4 times a day No Action ferrous gluconate 324 mg (37.5 mg iron) tablet 324 mg PO DAILY Qty: 90 1RF allopurinol 100 mg tablet 100 mg PO DAILY Qty: 90 1RF Forteo 20 mcg/dose (600mcg/2.4mL) pen injector 20 mcg SUBCUT DAILY Referrals: Priscila Pastrana MD [Non-Staff] - Shahid Conde, [Primary Care Provider] - Stand Alone Forms: Patient Portal/API <Dia Zhong MD - Last Filed: 08/27/22 18:57> [facility] ED Attending Olegarioature Attestation: I was immediately available in the department for consultation throughout this patient's visit. I agree with documentation as above. Dia Zhong MD
[2022-08-27] MEDS: ACETAMINOPHEN 325 MG TABLET 975 MG PO (15:55)
[2022-08-27] MEDS: KETOROLAC 30 MG/ML VIAL 15 MG IM (15:55)
[2022-08-27] MEDS: predniSONE 20 MG TABLET PO (15:55)
[2022-08-27 16:05] VITALS: BP 147/80
== END 2022-08-27 16:07 | disposition home or self-care (01) ==
PROVIDERS: Emergency Provider Nurse Practitioner Critical Care Medicine; PCP Family Medicine
DX: M06.9 Rheumatoid arthritis, unspecified (principal); M26.622 Arthralgia of left temporomandibular joint; M79.7 Fibromyalgia
CPT/HCPCS: 96372; 99283; J1885

== ENCOUNTER → 2022-09-12 07:22 | Outpatient (CLI) | payer MEDICARE, SELFPAY ==
[2022-09-12 07:59] LABS: Add Manual Diff / Slide Review NO; Basophils Absolute Auto 0 /uL (0-100); Basophils Percent Auto 0.3 % (0-2); Eosinophils Absolute Auto 0 /uL (0-450); Eosinophils Percent Auto 0.1 % (2-4); Hematocrit 38.8 % (36-46); Hemoglobin 12.9 g/dL (12.0-16.0); Lymphocytes Absolute Auto 600 /uL (1100-4500); Lymphocytes Percent Auto 4.5 % (25-40); Mean Corpuscular HGB Conc 33.2 % (30-36); Mean Corpuscular Hemoglobin 29.2 PG (26-34); Mean Corpuscular Volume 88.1 fL (80-100); Monocytes Absolute Auto 300 /uL (0-900); Monocytes Percent Auto 2.1 % (3-14); Neutrophils Absolute Auto 12900 /uL (1500-7000); Platelet Count 329 X10^3/uL (150-400); White Blood Cell Count 13.9 X10^3/uL (4.5-11.0)
[2022-09-12 08:14] LABS: HEMOLYSIS < 15 (0-50); Iron 122 ug/dL (37-170)
[2022-09-12 08:21] LABS: Transferrin 256 mg/dL (206-381)
[2022-09-13 14:55] LABS: Percent Iron Saturation 45 % (15-50); Total Iron Binding Capacity 272 ug/dL (265-497)
[2022-09-14 03:16] LABS: QuantiFERON Mitogen Value 0.62 IU/mL (.); QuantiFERON Nil Value 0.01 IU/mL (.); QuantiFERON TB Gold Plus Negative (Negative); QuantiFERON TB1 Ag Value 0.01 IU/mL (.); QuantiFERON TB2 Ag Value 0.01 IU/mL (.)
== END ==
PROVIDERS: PCP Family Medicine; Referring Provider Internal Medicine Rheumatology; Visit Provider Internal Medicine Rheumatology
DX: M35.3 Polymyalgia rheumatica (principal); M31.6 Other giant cell arteritis; M80.08XD Age-related osteoporosis with current pathological fracture, vertebra(e), subsequent encounter for fracture with routine healing; D50.8 Other iron deficiency anemias
CPT/HCPCS: 36415; 83540; 83550; 85025; 86480

== ENCOUNTER → 2023-01-09 09:32 | Outpatient (CLI) | payer MEDICARE, SELFPAY ==
--- NOTE | 2023-01-09 09:54 | DI.DEXA.S_ITS ---
Bone Density Report Name: SKINNY GIANG V Age: 67 Sex: Female Ethnicity: White Date of : 1955 Indication: postmenopausal; screening for osteoporosis; prior fracture; Referring Provider: LOLI HAWKINS Study: Bone densitometry was performed. Exam Date: January 09, 2023 Accession number: [id number] Bone Density: Region BMD T-score Z-score Classification AP Spine(L1-L4) 0.720 -3.0 -0.9 Osteoporosis Femoral Neck (Right) 0.646 -1.8 -0.1 Osteopenia Total Hip (Right) 0.613 -2.7 -1.2 Osteoporosis Total Forearm (Left) 0.317 -4.9 -2.9 Osteoporosis 1/3 Forearm (Left) 0.426 -4.5 -2.5 Osteoporosis UD Forearm (Left) 0.244 -3.4 -2.0 Osteoporosis World Health Organization criteria for BMD impression classify patients as: Normal (T-score at or above -1.0), Osteopenia (T-score between -1.0 and -2.5), or Osteoporosis (T-score at or below -2.5). 10-year Fracture Risk: FRAX not reported because: Some T-score for Spine Total or Hip Total or Femoral Neck at or below -2.5 Prior hip or vertebral fracture Impression: The patient has established osteoporosis, based on the Total Spine T-score and the existence of a prior fracture. The patient has risk factors, including: previous fracture. Discussion: HIGH RISK OF FRACTURE. BONE DENSITY IS UNDESIRABLY LOW AT ONE OR MORE SKELETAL SITES, CONSISTENT WITH POSTMENOPAUSAL OSTEOPOROSIS. This patient's lowest T-score, in a patient who has previously fractured, meets the World Health Organization's (WHO) criteria for severe osteoporosis. In untreated patients, the risk of osteoporotic fracture increases approximately two-fold for each 1.0 SD decrease in T-score. Low bone density is not the only risk factor for fracture; also consider factors such as patient's age, frailty or poor health, risk of falling, risk of injury, previous osteoporotic fracture, family history of osteoporosis, cigarette smoking, low body weight, etc. Not everyone with low bone mineral density has osteoporosis; osteomalacia and other metabolic bone disorders should also be considered. Patients who have osteoporosis should be evaluated for specific diseases and conditions (secondary causes) that may cause or contribute to bone loss. The [place] [employer] Clinical Endocrinologists (AACE) and National Osteoporosis Foundation (NOF) recommend pharmacologic intervention for all postmenopausal women with a previous hip or vertebral fracture and a T-score in this range. The patient should follow a healthful lifestyle (good nutrition with adequate calcium and vitamin D, and appropriate weight-bearing exercise). Follow-Up: Consider a repeat BMD and Vertebral Fracture Assessment (VFA) exam in 2 years or sooner if medically necessary, to reassess this patient's status. Reported by: ARUNA MACK M.D. on 01/09/2023 10:05:00 AM.
== END ==
PROVIDERS: PCP Family Medicine; Referring Provider Internal Medicine Rheumatology; Visit Provider Internal Medicine Rheumatology
DX: Z13.820 Encounter for screening for osteoporosis; M81.0 Age-related osteoporosis without current pathological fracture; Z78.0 Asymptomatic menopausal state; M31.6 Other giant cell arteritis; M35.3 Polymyalgia rheumatica; D84.9 Immunodeficiency, unspecified
CPT/HCPCS: 77080

== ENCOUNTER → 2023-05-15 08:29 | Outpatient (CLI) | payer MEDICARE, SELFPAY ==
[2023-05-15 09:43] LABS: Add Manual Diff / Slide Review NO; Basophils Absolute Auto 0 /uL (0-100); Eosinophils Absolute Auto 100 /uL (0-450); Eosinophils Percent Auto 1.5 % (2-4); Hematocrit 40.5 % (36-46); Lymphocytes Absolute Auto 1700 /uL (1100-4500); Lymphocytes Percent Auto 40.5 % (25-40); Mean Corpuscular HGB Conc 34.6 % (30-36); Mean Corpuscular Volume 92.5 fL (80-100); Monocytes Absolute Auto 400 /uL (0-900); Monocytes Percent Auto 10.2 % (3-14); Neutrophils Absolute Auto 2000 /uL (1500-7000); Neutrophils Percent Auto 46.8 % (50-75); Platelet Count 314 X10^3/uL (150-400); Red Blood Cell Count 4.38 X10^6/uL (4.0-5.2); Red Cell Distribution Width 13.7 % (11.6-14.8); White Blood Cell Count 4.2 X10^3/uL (4.5-11.0)
[2023-05-15 10:03] LABS: Alanine Aminotransferase 25 IU/L (<35); Albumin Globulin Ratio 1.7 (1.0-2.8); Alkaline Phosphatase 50 U/L (38-126); Aspartate Aminotransferase 33 IU/L (14-36); BUN Creatinine Ratio 6.9 (6-22); Bilirubin Total 1.3 mg/dL (0.2-1.3); Blood Urea Nitrogen 6 mg/dL (7-17); C-Reactive Protein Quant < 0.5 mg/dL (<1.0); Carbon Dioxide 28 mmol/L (22-32); Chloride 103 mmol/L (98-107); Estimated Glomerular Filt Rate > 60 mL/min (>60); Globulin 2.3 g/dL (1.7-4.1); Glucose 85 mg/dL (80-110); HEMOLYSIS < 15 (0-50); Potassium 4.1 mmol/L (3.4-5.1); Sodium 136 mmol/L (137-145); Total Protein 6.3 g/dL (6.3-8.2); Uric Acid 4.1 mg/dL (2.5-6.2)
[2023-05-15 10:10] LABS: Erythrocyte Sedimentation Rate 2 MM/HR (0-20)
== END ==
PROVIDERS: PCP Family Medicine; Referring Provider Internal Medicine Rheumatology; Visit Provider Internal Medicine Rheumatology
DX: M31.6 Other giant cell arteritis (principal); M35.3 Polymyalgia rheumatica; M80.08XD Age-related osteoporosis with current pathological fracture, vertebra(e), subsequent encounter for fracture with routine healing; D84.9 Immunodeficiency, unspecified; R74.01 Elevation of levels of liver transaminase levels; M10.9 Gout, unspecified
CPT/HCPCS: 36415; 80053; 84550; 85025; 85651; 86140

== ENCOUNTER → 2023-05-31 07:30 | Outpatient (CLI) | payer MEDICARE, SELFPAY ==
--- NOTE | 2023-05-31 07:31 | DI.MG.S_ITS ---
BILATERAL DIGITAL SCREENING MAMMOGRAM 3D/2D WITH CAD: 05/31/2023 CLINICAL: Baseline exam. Routine screening. No prior exams were available for comparison. Both breasts are almost entirely fatty (category a/<25% glandular tissue). Current study was also evaluated with a Computer Aided Detection (CAD) system. There are benign vascular calcifications in both breasts. No significant masses, calcifications, or other findings are seen in either breast. IMPRESSION: BENIGN There is no mammographic evidence of malignancy. A 1 year screening mammogram is recommended. Based on the Tyrer Cuzick model (a risk assessment model) the patient's lifetime risk is 3.1% and her 10 year risk is 1.8%. According to the ACR, ACS, and NCCN guidelines, an annual breast MRI exam along with mammogram is recommended if the patient's lifetime risk is 20% or greater. This exam was interpreted at Station ID: [id number]. NOTE: For mammograms, a report in lay terms will be sent to the patient. Approximately 15% of breast malignancies will not be visualized mammographically. In the management of a palpable breast mass, a negative mammogram must not discourage biopsy of a clinically suspicious lesion. Electronically Signed By: Jose Mixon M.D. acr/pensylvia:05/31/2023 11:56:12 letter sent: Normal Exam ACR BI-RADS Category 2: Benign Finding(s) 3342F
== END ==
PROVIDERS: PCP Family Medicine; Referring Provider Family Medicine; Visit Provider Family Medicine
DX: Z12.31 Encounter for screening mammogram for malignant neoplasm of breast (principal)
CPT/HCPCS: 77063; 77067

== ENCOUNTER → 2023-08-15 11:04 | Outpatient (CLI) | payer MEDICARE, SELFPAY ==
[2023-08-15 12:26] LABS: Add Manual Diff / Slide Review NO; Basophils Absolute Auto 100 /uL (0-100); Basophils Percent Auto 1.4 % (0-2); Eosinophils Absolute Auto 100 /uL (0-450); Eosinophils Percent Auto 1.3 % (2-4); Hematocrit 39.9 % (36-46); Hemoglobin 13.6 g/dL (12.0-16.0); Lymphocytes Absolute Auto 1900 /uL (1100-4500); Lymphocytes Percent Auto 35.9 % (25-40); Mean Corpuscular HGB Conc 34.1 % (30-36); Mean Corpuscular Hemoglobin 32.5 PG (26-34); Mean Corpuscular Volume 95.4 fL (80-100); Monocytes Absolute Auto 400 /uL (0-900); Neutrophils Absolute Auto 2800 /uL (1500-7000); Neutrophils Percent Auto 53.4 % (50-75); Platelet Count 296 X10^3/uL (150-400); Red Blood Cell Count 4.18 X10^6/uL (4.0-5.2); Red Cell Distribution Width 13.2 % (11.6-14.8); White Blood Cell Count 5.3 X10^3/uL (4.5-11.0)
[2023-08-15 13:04] LABS: Erythrocyte Sedimentation Rate 3 MM/HR (0-20)
[2023-08-15 13:58] LABS: Alanine Aminotransferase 29 IU/L (<35); Albumin Globulin Ratio 1.4 (1.0-2.8); Alkaline Phosphatase 55 U/L (38-126); Aspartate Aminotransferase 39 IU/L (14-36); BUN Creatinine Ratio 9.9 (6-22); Bilirubin Total 1.1 mg/dL (0.2-1.3); Blood Urea Nitrogen 9 mg/dL (7-17); C-Reactive Protein Quant < 0.5 mg/dL (<1.0); Calcium 9.9 mg/dL (8.4-10.2); Carbon Dioxide 29 mmol/L (22-32); Chloride 104 mmol/L (98-107); Estimated Glomerular Filt Rate > 60 mL/min (>60); Globulin 2.9 g/dL (1.7-4.1); Glucose 85 mg/dL (80-110); HEMOLYSIS < 15 (0-50); Potassium 3.8 mmol/L (3.4-5.1); Sodium 138 mmol/L (137-145); Total Protein 6.9 g/dL (6.3-8.2)
== END ==
PROVIDERS: PCP Family Medicine; Referring Provider Internal Medicine Rheumatology; Visit Provider Internal Medicine Rheumatology
DX: M31.6 Other giant cell arteritis (principal); M35.3 Polymyalgia rheumatica; M80.08XD Age-related osteoporosis with current pathological fracture, vertebra(e), subsequent encounter for fracture with routine healing; D84.9 Immunodeficiency, unspecified; R74.01 Elevation of levels of liver transaminase levels; M10.9 Gout, unspecified
CPT/HCPCS: 36415; 80053; 84550; 85025; 85651; 86140

== ENCOUNTER → 2023-10-24 07:03 | Outpatient (CLI) | payer MEDICARE, SELFPAY ==
[2023-10-24 08:10] LABS: Hemoglobin 14.1 g/dL (12.0-16.0); Mean Corpuscular HGB Conc 34.4 % (30-36); Mean Corpuscular Hemoglobin 32.8 PG (26-34); Mean Corpuscular Volume 95.3 fL (80-100); Platelet Count 270 X10^3/uL (150-400); White Blood Cell Count 4.2 X10^3/uL (4.5-11.0)
[2023-10-24 08:34] LABS: Erythrocyte Sedimentation Rate 2 MM/HR (0-20)
[2023-10-24 08:39] LABS: Alanine Aminotransferase 25 IU/L (<35); Albumin 4.3 g/dL (3.5-5.0); Albumin Globulin Ratio 1.7 (1.0-2.8); Alkaline Phosphatase 64 U/L (38-126); Aspartate Aminotransferase 34 IU/L (14-36); Bilirubin Total 1.2 mg/dL (0.2-1.3); Bilirubin Unconjugated 0.9 mg/dL (0.0-1.1); C-Reactive Protein Quant < 0.5 mg/dL (<1.0); Estimated Glomerular Filt Rate > 60 mL/min (>60); Globulin 2.6 g/dL (1.7-4.1); HEMOLYSIS < 15 (0-50); Total Protein 6.9 g/dL (6.3-8.2)
== END ==
PROVIDERS: PCP Family Medicine; Referring Provider Internal Medicine Rheumatology; Visit Provider Internal Medicine Rheumatology
DX: M31.6 Other giant cell arteritis (principal); M35.3 Polymyalgia rheumatica; R74.01 Elevation of levels of liver transaminase levels; D84.9 Immunodeficiency, unspecified; M80.08XD Age-related osteoporosis with current pathological fracture, vertebra(e), subsequent encounter for fracture with routine healing; M10.9 Gout, unspecified
CPT/HCPCS: 36415; 80076; 82565; 85027; 85651; 86140

== ENCOUNTER → 2024-07-11 08:29 | Outpatient (CLI) | payer MEDICARE, SELFPAY ==
[2024-07-11 09:12] LABS: Hematocrit 42.3 % (36-46); Hemoglobin 14.1 g/dL (12.0-16.0); Mean Corpuscular HGB Conc 33.3 % (30-36); Mean Corpuscular Hemoglobin 32.3 PG (26-34); Platelet Count 279 X10^3/uL (150-400); Red Blood Cell Count 4.36 X10^6/uL (4.0-5.2); Red Cell Distribution Width 12.9 % (11.6-14.8); White Blood Cell Count 4.9 X10^3/uL (4.5-11.0)
[2024-07-11 09:32] LABS: Alanine Aminotransferase 26 IU/L (<35); Albumin 4.2 g/dL (3.5-5.0); Albumin Globulin Ratio 1.8 (1.0-2.8); Alkaline Phosphatase 44 U/L (38-126); Aspartate Aminotransferase 36 IU/L (14-36); Bilirubin Total 1.4 mg/dL (0.2-1.3); Bilirubin Unconjugated 1.2 mg/dL (0.0-1.1); C-Reactive Protein Quant < 0.5 mg/dL (<1.0); Estimated Glomerular Filt Rate > 60 mL/min (>60); Globulin 2.4 g/dL (1.7-4.1); HEMOLYSIS < 15 (0-50); Total Protein 6.6 g/dL (6.3-8.2)
[2024-07-11 10:14] LABS: Erythrocyte Sedimentation Rate 2 MM/HR (0-20)
== END ==
LOC: LAB 08:31
PROVIDERS: PCP Family Medicine; Referring Provider Internal Medicine Rheumatology; Visit Provider Internal Medicine Rheumatology
DX: M31.6 Other giant cell arteritis (principal); M35.3 Polymyalgia rheumatica; M80.08XD Age-related osteoporosis with current pathological fracture, vertebra(e), subsequent encounter for fracture with routine healing; D84.9 Immunodeficiency, unspecified
CPT/HCPCS: 36415; 80076; 82565; 85027; 85651; 86140

== ENCOUNTER → 2025-01-27 07:23 | Outpatient (CLI) | payer MEDICARE, SELFPAY ==
[2025-01-27 08:10] LABS: Add Manual Diff / Slide Review NO; Basophils Absolute Auto 0 /uL (0-100); Basophils Percent Auto 0.8 % (0-2); Eosinophils Absolute Auto 100 /uL (0-450); Eosinophils Percent Auto 2.8 % (2-4); Hematocrit 40.9 % (36-46); Lymphocytes Absolute Auto 1200 /uL (1100-4500); Lymphocytes Percent Auto 33.3 % (25-40); Mean Corpuscular HGB Conc 34.3 % (30-36); Mean Corpuscular Hemoglobin 32.4 PG (26-34); Mean Corpuscular Volume 94.6 fL (80-100); Monocytes Absolute Auto 500 /uL (0-900); Monocytes Percent Auto 12.9 % (3-14); Neutrophils Absolute Auto 1800 /uL (1500-7000); Neutrophils Percent Auto 50.2 % (50-75); Platelet Count 268 X10^3/uL (150-400); Red Blood Cell Count 4.32 X10^6/uL (4.0-5.2); Red Cell Distribution Width 13.5 % (11.6-14.8); White Blood Cell Count 3.6 X10^3/uL (4.5-11.0)
[2025-01-27 08:26] LABS: Erythrocyte Sedimentation Rate 2 MM/HR (0-20)
[2025-01-27 08:33] LABS: HEMOLYSIS < 15 (0-50); Iron 126 ug/dL (37-170)
[2025-01-27 08:36] LABS: Alanine Aminotransferase 34 IU/L (<35); Albumin 4.4 g/dL (3.5-5.0); Alkaline Phosphatase 50 U/L (38-126); Aspartate Aminotransferase 44 IU/L (14-36); BUN Creatinine Ratio 9.9 (6-22); Bilirubin Total 1.5 mg/dL (0.2-1.3); Blood Urea Nitrogen 9 mg/dL (7-17); Carbon Dioxide 29 mmol/L (22-32); Chloride 104 mmol/L (98-107); Estimated Glomerular Filt Rate > 60 mL/min (>60); Globulin 2.2 g/dL (1.7-4.1); Glucose 93 mg/dL (70-99); HEMOLYSIS < 15 (0-50); Potassium 4.3 mmol/L (3.4-5.1); Sodium 138 mmol/L (137-145); Total Protein 6.6 g/dL (6.3-8.2); Uric Acid 3.8 mg/dL (2.5-6.2)
[2025-01-27 08:38] LABS: C-Reactive Protein Quant < 0.5 mg/dL (<1.0)
[2025-01-27 08:45] LABS: Percent Iron Saturation 45 % (15-50); Total Iron Binding Capacity 283 ug/dL (265-497); Transferrin 271 mg/dL (206-381)
[2025-01-27 09:00] LABS: Vitamin D 25 Hydroxy (D3) 93.1 ng/mL (30.0-100.0)
[2025-01-27 09:26] LABS: Vitamin B12 > 1000 pg/mL (239-931)
== END ==
PROVIDERS: PCP Family Medicine; Referring Provider Internal Medicine Rheumatology; Visit Provider Internal Medicine Rheumatology
DX: D84.9 Immunodeficiency, unspecified (principal); E83.52 Hypercalcemia; M31.6 Other giant cell arteritis; M35.3 Polymyalgia rheumatica; M80.08XD Age-related osteoporosis with current pathological fracture, vertebra(e), subsequent encounter for fracture with routine healing; D64.9 Anemia, unspecified; M10.9 Gout, unspecified; E87.1 Hypo-osmolality and hyponatremia
CPT/HCPCS: 36415; 80053; 82306; 82607; 83540; 83550; 84550; 85025; 85651; 86140

== ENCOUNTER → 2025-02-04 09:50 | Outpatient (CLI) | payer MEDICARE, SELFPAY ==
--- NOTE | 2025-02-04 09:51 | DI.RAD.S_ITS ---
PROCEDURE: XR DEXA AXIAL SKELETON INDICATIONS: osteoporosis screening COMPARISON: [facility], [place], XR DEXA AXIAL SKELETON, 01/09/2023, 9:54. FINDINGS: Lumbar Spine: Bone mineral density 0.818 g/cm2, T score -2.1, compared to -3.0. Right Femoral Neck: Bone mineral density 0.734 g/cm2, T score -1.0 compared to -1.8. Right Hip: Bone mineral density 0.66 g/cm2, T score -2.3, compared to -2 7. Fracture Risk Calculation (when applicable): 10-year fracture risk of a major osteoporotic fracture 16 percent and of a hip fracture 2.1 percent. (T score greater or equal to -1.0 to: NORMAL) (T score from -1.1 to -2.4: OSTEOPENIA) (T score less than or equal to -2.5: OSTEOPOROSIS) IMPRESSION: Overall improvement in bone mineral density demonstrating approximately 14% increase in the lumbar spine as well as 8% in the right hip. Moderate to severe osteopenia is present the lumbar spine and right hip. No osteoporosis. Follow-up guidelines as follows: Osteoporosis: Consider a repeat DEXA and Vertebral Fracture Assessment (VFA) exam in 2 years or sooner if medically necessary, to reassess this patient's status. Osteopenia: Consider a repeat DEXA in 2-3 years to reassess this patient's status, or if there is a new clinical indication. Normal: Consider a repeat DEXA in 5 years or sooner, or if there is a new clinical indication. All treatment decisions require clinical judgment and consideration of individual patient factors, including patient preferences, comorbidities, previous drug use, risk factors not captured in the FRAX model (e.g., frailty, falls, vitamin D deficiency, increased bone turnover, interval significant decline in bone density ) and possible under- or over-estimation of fracture risk by FRAX. In addition, the NOF Guide recommends that FDA-approved medical therapies be considered in postmenopausal women and men age >= 50 years with a: * Hip or vertebral (clinical or morphometric) fracture * T-score of <=-2.5 at the spine or hip * Ten-year fracture probability by FRAX of >= 3% for hip fracture or >=20% for major osteoporotic fracture. Dictated by: Tatiana Noble M.D. on 02/04/2025 at 15:19 Approved by: Tatiana Noble M.D. on 02/04/2025 at 15:22
== END ==
PROVIDERS: PCP Family Medicine; Referring Provider Internal Medicine Rheumatology; Visit Provider Internal Medicine Rheumatology
DX: M80.08XD Age-related osteoporosis with current pathological fracture, vertebra(e), subsequent encounter for fracture with routine healing (principal); Z78.0 Asymptomatic menopausal state; M31.6 Other giant cell arteritis; M35.3 Polymyalgia rheumatica; D84.9 Immunodeficiency, unspecified; R74.01 Elevation of levels of liver transaminase levels
CPT/HCPCS: 77080

== ENCOUNTER → 2025-06-25 08:08 | Outpatient (CLI) | payer MEDICARE, SELFPAY ==
[2025-06-25 08:32] LABS: Hematocrit 41.2 % (36-46); Hemoglobin 14.1 g/dL (12.0-16.0); Mean Corpuscular HGB Conc 34.2 % (30-36); Mean Corpuscular Hemoglobin 32.3 PG (26-34); Mean Corpuscular Volume 94.5 fL (80-100); Platelet Count 283 X10^3/uL (150-400)
[2025-06-25 08:57] LABS: Alanine Aminotransferase 25 IU/L (<35); Albumin 4.4 g/dL (3.5-5.0); Albumin Globulin Ratio 1.8 (1.0-2.8); Alkaline Phosphatase 44 U/L (38-126); Estimated Glomerular Filt Rate > 60 mL/min (>60); Globulin 2.5 g/dL (1.7-4.1); HEMOLYSIS < 15 (0-50); Total Protein 6.9 g/dL (6.3-8.2)
== END ==
PROVIDERS: PCP Family Medicine; Referring Provider Internal Medicine Rheumatology; Visit Provider Internal Medicine Rheumatology
DX: D84.9 Immunodeficiency, unspecified (principal); M31.6 Other giant cell arteritis; M35.3 Polymyalgia rheumatica; M80.08XD Age-related osteoporosis with current pathological fracture, vertebra(e), subsequent encounter for fracture with routine healing; R74.01 Elevation of levels of liver transaminase levels
CPT/HCPCS: 36415; 80076; 82565; 85027; 85651; 86140

== ENCOUNTER → 2025-08-03 08:47 | Outpatient (CLI) | payer MEDICARE, SELFPAY ==
--- NOTE | 2025-08-03 08:48 | DI.MG.S_ITS ---
MM screening mammo BI: 08/03/2025. BI-RADS: 1 CLINICAL: 69-year old female for bilateral screening mammogram. Tyrer-Cuzick lifetime risk of 3.9%. No personal or first-degree family history of breast cancer. PRIOR EXAMS 05/31/2023. MAMMOGRAPHY TECHNIQUE: 2D and 3D (tomosynthesis) digital mammographic views obtained, with additional images as needed for full coverage. Current study was also evaluated with a Computer Aided Detection (CAD) system. DENSITY C. The breasts are heterogeneously dense, which may obscure small masses. MAMMOGRAPHY FINDINGS Bilateral: No suspicious mass, asymmetry, microcalcification, or other abnormality seen. IMPRESSION: * No evidence of malignancy. RECOMMENDATIONS Bilateral * Annual screening mammography. OVERALL ASSESSMENT CATEGORY BI-RADS-1: Negative. The [employer] recommends annual screening mammography beginning at age 40 for women with average risk of breast cancer. ELECTRONICALLY SIGNED: Leslie Narvaez M.D. on 08/03/2025 at 04:56:31 PM PT Interpreting Station ID: [id number]
== END ==
LOC: MAMMO 08:48
PROVIDERS: PCP Family Medicine; Referring Provider Family Medicine; Visit Provider Family Medicine
DX: Z12.31 Encounter for screening mammogram for malignant neoplasm of breast (principal); R92.333 Mammographic heterogeneous density, bilateral breasts
CPT/HCPCS: 77063; 77067